=== PATIENT | male | born 1970 | race Caucasian/White ===

== ENCOUNTER → 2019-11-09 13:10 | Outpatient (CLI) | payer OTHER, SELFPAY ==
[2019-11-09 16:13] LABS: Absolute Lymphocyte Count 1.51 X10^3/uL (0.83-4.51); Absolute Neutrophil Count 3.3 X10^3/uL (2.0-7.7); Basophil# 0.03 X10^3/uL; Basophil% 0.5 % (0-1); Eosinophil# 0.15 X10^3/uL; Eosinophils% 2.6 % (0-5); Hematocrit 46.6 % (40-54); Hemoglobin 15.6 g/dL (13.0-16.5); Lymphocyte # 1.51 X10^3/ul (4.0); Lymphocyte % 26.1 % (19-41); Mean Corp Hgb Conc 33.5 g/dL (32-36); Mean Corpuscular Hgb 31.4 pg (27.0-32.0); Mean Corpuscular Volume 93.8 fL (80-94); Mean Platelet Vol. 10.2 fl (6.2-12.0); Monocyte# 0.69 X10^3/uL; Monocyte% 11.9 % (0-10); NRBC Flagged by Analyzer 0 % (0-5); Neutrophil # 3.31 X10^3/uL (2.7-7.7); Neutrophil % 57.3 % (47-70); Platelet Count 191 K/mm3 (150-450); RBC Distribution Width CV 12.5 % (11.6-14.6); Red Blood Count 4.97 M/mm3 (4.6-6.2); White Blood Count 5.8 K/mm3 (4.4-11.0)
[2019-11-09 17:27] LABS: AST(SGOT) 93 U/L (15-37); Alanine Aminotransfer ALT/SGPT 181 U/L (16-61); Albumin, Serum 3.8 g/dL (3.2-5.0); Alkaline Phosphatase 94 U/L (45-117); Globulin 3.3 g/dL (2.2-4.2); Protein, Total 7.1 g/dL (6.4-8.2)
== END ==
PROVIDERS: Family Provider Family Medicine; PCP Family Medicine; Referring Provider Internal Medicine Gastroenterology; Visit Provider Internal Medicine Gastroenterology
DX: K51.90 Ulcerative colitis, unspecified, without complications (principal)
CPT/HCPCS: 36415; 80076; 85025

== ENCOUNTER → 2019-12-16 09:58 | Outpatient (CLI) | payer BC, SELFPAY ==
[2019-12-16 13:18] LABS: AST(SGOT) 24 U/L (15-37); Alanine Aminotransfer ALT/SGPT 49 U/L (12-78); Alkaline Phosphatase 90 U/L (50-136); Bilirubin, Direct 0.14 mg/dL (0.00-0.30); CRP < 2.90 mg/L (0.0-3.0)
== END ==
PROVIDERS: PCP Family Medicine; Referring Provider Internal Medicine Gastroenterology; Visit Provider Internal Medicine Gastroenterology
DX: K51.90 Ulcerative colitis, unspecified, without complications (principal)
CPT/HCPCS: 36415; 80076; 86140

== ENCOUNTER → 2021-06-01 11:00 | Outpatient (CLI) | payer BC, SELFPAY ==
[2021-06-01 12:32] LABS: Absolute Lymphocyte Count 1.28 X10^3/uL (0.83-4.51); Absolute Neutrophil Count 4.6 X10^3/uL (2.0-7.7); Basophil# 0.04 X10^3/uL; Basophil% 0.6 % (0-1); Eosinophil# 0.17 X10^3/uL; Eosinophils% 2.5 % (0-5); Hemoglobin 14.9 g/dL (13.0-16.5); Lymphocyte # 1.28 X10^3/ul (0.83-4.51); Lymphocyte % 18.7 % (19-41); Mean Corp Hgb Conc 33.1 g/dL (32-36); Mean Corpuscular Volume 93.6 fL (80-94); Mean Platelet Vol. 10.1 fl (6.2-12.0); Monocyte# 0.69 X10^3/uL; Monocyte% 10.1 % (0-10); NRBC Flagged by Analyzer 0 % (0-5); Neutrophil % 67.2 % (47-70); Platelet Count 217 K/mm3 (150-450); RBC Distribution Width CV 12.6 % (11.6-14.6); RBC Distribution Width SD 43.6 fl (35.1-43.9); Red Blood Count 4.81 M/mm3 (4.6-6.2); White Blood Count 6.8 K/mm3 (4.4-11.0)
== END ==
PROVIDERS: PCP Family Medicine; Referring Provider Internal Medicine Gastroenterology; Visit Provider Internal Medicine Gastroenterology
DX: K51.90 Ulcerative colitis, unspecified, without complications (principal)
CPT/HCPCS: 36415; 85025

== ENCOUNTER → 2022-11-02 | Outpatient (CLI) | payer OTHER, SELFPAY ==
[2022-11-02 10:06] LABS: Erythrocyte Sedimentation Rate 4 mm/hr (0-20)
[2022-11-02 10:13] LABS: Vitamin B12 471 pg/mL (211-911); Vitamin D,25 Hydroxy 29.1 ng/mL
[2022-11-02 10:26] LABS: ALB/GLOB Ratio 1.2 RATIO (0.9-2.4); AST(SGOT) 18 U/L (15-37); Alanine Aminotransfer ALT/SGPT 24 U/L (16-61); Albumin, Serum 3.7 g/dL (3.2-5.0); Alkaline Phosphatase 95 U/L (45-117); Anion Gap 2 (5-15); BUN 10 mg/dL (7-18); BUN/Creat Ratio 10.1 RATIO (10-20); CRP < 2.90 mg/L (0.0-3.0); Calcium,Total 8.9 mg/dL (8.5-10.1); Chloride 108 mmol/L (98-107); Creatinine, Serum 0.99 mg/dL (0.70-1.30); EST Glomerular Filtration Rate 85 mL/min (>60); Est Glom Filt Rate - Afr Amer 102 mL/min (>60); Ferritin 38 ng/mL (26-388); Globulin 3.2 g/dL (2.2-4.2); Glucose 102 mg/dL (74-106); LDH 210 U/L (87-241); Potassium 4.4 mmol/L (3.5-5.1); Protein, Total 6.9 g/dL (6.4-8.2); Sodium Level 139 mmol/L (136-145)
[2022-11-07 05:07] LABS: Endomysial Antibody IgA Negative (Negative)
[2022-11-07 09:08] LABS: Albumin 3.7 g/dL (2.9-4.4); Alpha-1-Globulins 0.2 g/dL (0.0-0.4); Alpha-2-Globulins 0.6 g/dL (0.4-1.0); Angiotensin Convert Enzyme 83 U/L (14-82); Cytoplasmic Ab (C-ANCA) <1:20 titer (Neg:<1:20); Gamma Globulin 1.1 g/dL (0.4-1.8); Immunoglobulin A 119 mg/dL (90-386); Immunoglobulin G 936 mg/dL (603-1613); Immunoglobulin M 105 mg/dL (20-172); PROEL- TOTAL PROTEIN 6.5 g/dL (6.0-8.5)
[2022-11-07 11:03] LABS: Immunoglobulin A 122 mg/dL (90-386); t-Transglutaminase IgA <2 U/mL (0-3)
[2022-11-07 12:00] LABS: Anti-Smooth Muscle ABS 6 Units (0-19); Immunoglobulin E 9 IU/mL (6-495); Perinuclear Ab (P-ANCA) <1:20 titer (Neg:<1:20)
[2022-11-09 17:06] LABS: Anti-Mitochondrial AB <20.0 Units (0.0-20.0); Vitamin D 1,25-Dihydroxy 45.2 pg/mL (24.8-81.5)
== END | disposition home or self-care (01) ==
LOC: LAB 09:14
PROVIDERS: PCP Family Medicine; Referring Provider Internal Medicine Gastroenterology; Visit Provider Internal Medicine Gastroenterology
DX: R10.9 Unspecified abdominal pain (principal); K51.90 Ulcerative colitis, unspecified, without complications
CPT/HCPCS: 36415; 80053; 82164; 82306; 82607; 82652; 82728; 82746; 82784; 82785; 83516; 83615; 84165; 85652; 86140; 86255; 86256; 86334

== ENCOUNTER → 2022-11-15 | Outpatient (CLI) | payer OTHER, SELFPAY ==
--- NOTE | 2022-11-15 08:01 | US_ITS ---
STUDY: ABDOMINAL ULTRASOUND - ELASTOGRAPHY REASON FOR VISIT: Male, 52 years old. LOPEZ TECHNIQUE: Liver stiffness measurements were obtained on a Jumptap RS 85 ultrasound machine using a CA 1-7 probe following the SRU guidelines. 3 measurements were obtained using a 2-D-SWE method. TheIQR/M was 17 % suggesting a quality data set. TECHNICAL QUALITY: Adequate. COMPARISON: Comparison is made with prior study done earlier in the day. FINDINGS: Liver: Fatty infiltration of the liver. Median liver stiffness measured 7.3 kPa. US/Elastography Parenchyma/Organ IMPRESSION: Liver stiffness measures 7.3 kPa compatible with F2-F3 (Mild to moderate liver fibrosis) Metavir score. Electronically Signed: Prieto Gunderson MD at 14:45 EST ,
--- NOTE | 2022-11-15 08:16 | US_ITS ---
HISTORY: ulcerative colitis. TECHNIQUE: Akhtar scale and color doppler imaging was performed of the right upper quadrant. 108 images. COMPARISON: None. FINDINGS: LIVER: 15.4 cm in length. Mildly echogenic without focal lesion demonstrated. No intrahepatic ductal dilatation. No significant perihepatic ascites. COMMON BILE DUCT: 4 mm in diameter. GALLBLADDER: No gallstones or sludge. 5 mm polyp. 3 mm wall thickness, within normal limits. No pericholecystic fluid. Sonographic Benitez sign negative. PANCREAS: Partially obscured due to overlying bowel gas. RIGHT KIDNEY: 12.3 cm in length with a cortical thickness of 2.5 cm. No hydronephrosis or gross renal mass demonstrated. US/Liver IMPRESSION: Hepatic steatosis. 5 mm gallbladder polyp. Recommend follow-up in 12 months. Electronically Signed: Maya Hunter MD at 10:22 EST ,
[2022-11-19 16:07] LABS: Pancreatic Elastase, Fecal > 500 (>200)
[2022-11-22 21:39] LABS: Calprotectin, Stool 50 ug/g (0-120); Fats, Neutral Normal (.); Fats, Total Normal (.)
== END | disposition home or self-care (01) ==
PROVIDERS: PCP Family Medicine; Visit Provider Internal Medicine Gastroenterology
DX: K75.81 Nonalcoholic steatohepatitis (NASH) (principal); K51.90 Ulcerative colitis, unspecified, without complications; R19.7 Diarrhea, unspecified
CPT/HCPCS: 76705; 76981; 82653; 82705; 83630; 83993; 87177; 87209; 87329; 87493; 87506

== ENCOUNTER → 2022-12-03 | Outpatient (CLI) | payer OTHER, SELFPAY ==
[2022-12-06 17:29] LABS: Anti-Parietal Cell AB, QN 2.1 Units (0.0-20.0); Carbohydrate Ag 19-9 2261 19 U/mL (0-35); Carcinoembryonic Antigen 1.4 ng/mL (0.0-4.7)
== END | disposition home or self-care (01) ==
LOC: LAB 15:10
PROVIDERS: PCP Family Medicine; Referring Provider Internal Medicine Gastroenterology; Visit Provider Internal Medicine Gastroenterology
DX: K82.4 Cholesterolosis of gallbladder (principal)
CPT/HCPCS: 36415; 82378; 83516; 86301; 86340

== ENCOUNTER → 2023-03-02 | Outpatient (CLI) | payer OTHER, SELFPAY ==
[2023-03-05 18:07] LABS: QNTFERON TB Mitogen Value > 10.00 IU/mL (.); QNTFERON TB Nil Value 0 IU/mL (.); QNTFERON TB1+ Ag Value 0 IU/mL (.); QNTFERON TB2+ Ag Value 0.01 IU/mL (.); QNTIFERON TB Positive Criteria Negative (Negative)
== END | disposition home or self-care (01) ==
LOC: LAB 11:17
PROVIDERS: PCP Family Medicine; Visit Provider Internal Medicine Gastroenterology
DX: K51.90 Ulcerative colitis, unspecified, without complications (principal)
CPT/HCPCS: 36415; 86480

== ENCOUNTER → 2023-12-05 | Outpatient (CLI) | payer OTHER, SELFPAY ==
[2023-12-05 09:28] LABS: Absolute Lymphocyte Count 1.87 X10^3/uL (0.83-4.51); Absolute Neutrophil Count 3.9 X10^3/uL (2.0-7.7); Basophil# 0.05 X10^3/uL; Basophil% 0.7 % (0-1); Eosinophil# 0.19 X10^3/uL; Eosinophils% 2.8 % (0-5); Hematocrit 44.9 % (40-54); Lymphocyte # 1.87 X10^3/ul (0.83-4.51); Mean Corp Hgb Conc 33.4 g/dL (32-36); Mean Corpuscular Hgb 30.7 pg (27.0-32.0); Mean Platelet Vol. 10.1 fl (6.2-12.0); Monocyte# 0.59 X10^3/uL; Monocyte% 8.8 % (0-10); NRBC Flagged by Analyzer 0 % (0-5); Neutrophil # 3.91 X10^3/uL (2.7-7.7); Neutrophil % 58.5 % (47-70); Platelet Count 191 K/mm3 (150-450); RBC Distribution Width CV 12.2 % (11.6-14.6); RBC Distribution Width SD 41.3 fl (35.1-43.9); Red Blood Count 4.88 M/mm3 (4.6-6.2); White Blood Count 6.7 K/mm3 (4.4-11.0)
[2023-12-05 09:38] LABS: Erythrocyte Sedimentation Rate < 1 mm/hr (0-20)
[2023-12-05 10:07] LABS: ALB/GLOB Ratio 1.3 RATIO (0.9-2.4); AST(SGOT) 24 U/L (15-37); Alanine Aminotransfer ALT/SGPT 42 U/L (16-61); Albumin, Serum 3.9 g/dL (3.2-5.0); Alkaline Phosphatase 79 U/L (45-117); Anion Gap 1 (5-15); BUN 13 mg/dL (7-18); BUN/Creat Ratio 11.7 RATIO (10-20); CRP < 2.90 mg/L (0.0-3.0); Chloride 109 mmol/L (98-107); Creatinine, Serum 1.11 mg/dL (0.70-1.30); EST Glomerular Filtration Rate 74 mL/min (>60); Est Glom Filt Rate - Afr Amer 89 mL/min (>60); Globulin 3.1 g/dL (2.2-4.2); Glucose 107 mg/dL (74-106); LDH 257 U/L (87-241); Potassium 4.3 mmol/L (3.5-5.1); Sodium Level 137 mmol/L (136-145)
[2023-12-09 13:08] LABS: QNTFERON TB Mitogen Value > 10.00 IU/mL (.); QNTFERON TB Nil Value 0 IU/mL (.); QNTFERON TB1+ Ag Value 0 IU/mL (.); QNTFERON TB2+ Ag Value 0 IU/mL (.); QNTIFERON TB Positive Criteria Negative (Negative)
== END | disposition home or self-care (01) ==
PROVIDERS: PCP Family Medicine; Referring Provider Internal Medicine Gastroenterology; Visit Provider Internal Medicine Gastroenterology
DX: K51.90 Ulcerative colitis, unspecified, without complications (principal)
CPT/HCPCS: 36415; 80053; 83615; 85025; 85652; 86140; 86480

== ENCOUNTER → 2023-12-20 | Outpatient (CLI) | payer OTHER, SELFPAY ==
--- NOTE | 2023-12-20 07:22 | US_ITS ---
EXAM: US ABDOMEN LIMITED, RIGHT UPPER QUADRANT CLINICAL INDICATION: gallbladder polyp evaluation TECHNIQUE: Real-time ultrasound of the right upper quadrant with image documentation. COMPARISON: 11/15/2022 FINDINGS: LIVER: Liver is echogenic in texture measuring about 16 cm in length. No intrahepatic biliary ductal dilation. The portal vein is patent with normal hepatopedal flow. GALLBLADDER: 6 mm gallbladder polyp unchanged since prior exam. No shadowing gallstone. No gallbladder wall thickening is demonstrated. No pericholecystic fluid. Negative sonographic Benitez''s sign. COMMON BILE DUCT: The proximal common bile duct is within normal limits for the patient''s age. Normal common bile duct measuring 4 mm. PANCREAS: Unremarkable as visualized. No focal abnormality is demonstrated in the pancreas. No pancreatic ductal dilatation. RIGHT KIDNEY: The right kidney measures 12 x 6.7 x 7 cm. The renal cortex measures 2 cm. Focal prominence of the midpole of the right kidney measuring about 2.9 cm could represent dromedary hump. Focal mass cannot be excluded. Correlation with CT scan of the kidneys is recommended. No shadowing calculus. US/Abdomen Limited IMPRESSION: 1. Focal prominence of the midpole of the right kidney measuring about 2.9 cm could represent dromedary hump. Focal mass cannot be excluded. Correlation with CT scan of the kidneys with and without contrast is recommended. 2. 6 mm gallbladder polyp unchanged since prior exam. 3. Fatty infiltration of the liver. Electronically Signed: Jamie Krishna MD at 9:17 EST ,
--- OUTSIDE RECORDS SUMMARY | 2023-12-20 07:31 | XMS RPT_ITS | CCD ---
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 Name Role Phone Bouchra Alvarado Unavailable Cathy Ibrahim Unavailable Bouchra Alvarado Unavailable Sanya Delatorre MD Primary Care Provider Sanya Delatorre MD Primary Care Provider SANYA DELATORRE Primary Care Unavailable SANYA DELATORRE Primary Care Unavailable Allergies Allergy Classification Reported Allergen(s) Allergy Type Date of Onset Reaction(s) Facility (3 sources) Ibuprofen; Translations: [IBUPROFEN] Drug Allergy 09-16-2011 Intolerance [facility] Work Phone: Medications Current Medications Medication Drug Class(es) Dates Sig (Normalized) Sig (Original) amoxicillin 875 mg / clavulanate 125 mg oral tablet (1 source) Penicillin-class Antibacterial Start: 02-05-2023 End: 02-12-2023 take 1 tablet by mouth twice daily amoxicillin-clav ulanic acid (AUGMENTIN) 875-125 mg per tablet Take 1 tablet by mouth twice daily for 7 days. 14 tablet 0 02/05/2023 02/12/2023 Active Completed/Discontinued Medications Medication Drug Class(es) Dates Sig (Normalized) Sig (Original) azaTHIOprine 50 mg oral tablet (8 sources) Purine Antimetabolite Start: 05-08-2017 AZATHIOPRINE 50 MG TABS AZATHIOPRINE [id number] Bouchra Alvarado Problems Active Problems Problem Classification Problem Date Documented Da te Episodic/Chronic Joint disorders and dislocations; trauma-related (6 sources) Other meniscus derangements, unspecified lateral meniscus, unspecified knee; Translations: [Other meniscus derangements, unspecified lateral meniscus, unspecified knee] Onset: 05-08-2017 05-08-2017 Chronic Other screening for suspected conditions (not mental disorders or infectious disease) (1 source) No current problems or disability 05-08-2017 Other upper respiratory disease (1 source) Chronic rhinitis; Translations: [Unspecified sinusitis (chronic)] Chronic Other upper respiratory infections (2 sources) Sore throat symptom; Translations: [Acute pharyngitis, unspecified] Episodic Otitis media and related conditions (1 source) Acute left otitis media; Translations: [Otitis media, unspecified, left ear] Episodic Past or Other Problems Problem Classification Problem Date Documented Da te Episodic/Chronic Gastrointestinal hemorrhage (2 sources) Gastrointestinal hemorrhage; Translations: [Gastrointestinal hemorrhage, unspecified] Onset: 7 04-08-2007 Episodic Hemorrhoids (2 sources) External hemorrhoids; Translations: [Residual hemorrhoidal skin tags] Onset: 7 04-08-2007 Episodic Other connective tissue disease (6 sources) Synovial cyst of popliteal space [[place]], left knee; Translations: [Synovial cyst of popliteal space [[place]], left knee] Onset: 7 05-08-2017 Episodic Other gastrointestinal disorders (2 sources) Diarrhea; Translations: [Diarrhea, unspecified] Onset: 7 04-08-2007 Episodic Other non-traumatic joint disorders (6 sources) Knee pain; Translations: [Pain in left knee] Onset: 7 05-08-2017 Episodic Results Test Name Value Interpretation Reference Range Facil ity Vital Signs Date Time Vital Sign Value Performing Clinician Facility 02-05-2023 19:00-0400 Body temperature 97.81 [degF] Cathy Fontanez APRN.CNP Work Phone: [facility] 02-05-2023 19:00-0400 Body weight 119.3 kg Cathy Fontanez APRN.CNP Work Phone: [facility] 02-05-2023 19:00-0400 Diastolic blood pressure 80 mm[Hg] Cathy Fontanez APRN.CNP Work Phone: [facility] 02-05-2023 19:00-0400 Heart rate 94 /min Cathy Fontanez HOD CARRIER.CLINICAL PROJECT COORDINATOR Work Phone: [facility] 02-05-2023 19:00-0400 Respiratory rate 18 /min Cathy Fontanez HOD CARRIER.CLINICAL PROJECT COORDINATOR Work Phone: [facility] 02-05-2023 19:00-0400 SaO2% (BldA) [Mass fraction] 96 % Cathy Fontaenz HOD CARRIER.CLINICAL PROJECT COORDINATOR Work Phone: [facility] 02-05-2023 19:00-0400 Systolic blood pressure 124 mm[Hg] Cathy Fontanez HOD CARRIER.CLINICAL PROJECT COORDINATOR Work Phone: [facility] 05-01-2022 07:12-0400 Body temperature 96.91 [degF] Clarita Patel HOD CARRIER.CLINICAL PROJECT COORDINATOR Work Phone: [facility] 05-01-2022 07:12-0400 Body weight 112.04 kg Clarita Patel HOD CARRIER.CLINICAL PROJECT COORDINATOR Work Phone: [facility] 05-01-2022 07:12-0400 Diastolic blood pressure 82 mm[Hg] Clarita Patel HOD CARRIER.CLINICAL PROJECT COORDINATOR Work Phone: [facility] 05-01-2022 07:12-0400 Heart rate 84 /min Clarita Patel HOD CARRIER.CLINICAL PROJECT COORDINATOR Work Phone: [facility] 05-01-2022 07:12-0400 Respiratory rate 16 /min Clarita Patel HOD CARRIER.CLINICAL PROJECT COORDINATOR Work Phone: [facility] 05-01-2022 07:12-0400 SaO2% (BldA) [Mass fraction] 96 % Clarita Patel HOD CARRIER.CLINICAL PROJECT COORDINATOR Work Phone: [facility] 05-01-2022 07:12-0400 Systolic blood pressure 124 mm[Hg] Clarita Patel HOD CARRIER.CLINICAL PROJECT COORDINATOR Work Phone: [facility] 05-08-2017 08:47-0400 BMI (Body Mass Index) 32.07 kg/m2 [facility] Work Phone: 05-08-2017 08:47-0400 Height 180.34 cm Bouchra Alvarado [facility] Work Phone: 05-08-2017 [id number] Weight 104.33 kg Bouchra Alvarado [facility] Work Phone: Encounters Encounter Date Encounter Type Care Provider Facility Start: 02-05-2023 End: 02-05-2023 ambulatory SANYA MATTAELSEN Facility:[facility] Start: 02-05-2023 End: 02-05-2023 Patient encounter procedure Cathy Fontanez HOD CARRIER.CLINICAL PROJECT COORDINATOR Work Phone: [facility] Procedures Date Procedure Procedure Detail Performing Clinician Start: 05-01-2022 STREP A MOLECULAR (POC) Clarita Patel HOD CARRIER.CLINICAL PROJECT COORDINATOR Work Phone: Start: 05-08-2017 End: 05-08-2017 Drain/inject, joint/bursa Bouchra zuluaga Work Phone: Plan of Treatment Date Care Activity Detail Author Start: 11-11-2022 DEPRESSION ASSESSMENT DEPRESSION ASSESSMENT [facility] Start: 07-12-2022 Influenza vaccination [facility] Start: 05-31-2017 End: 05-31-2017 Appointment Appointment [facility] Work Phone: Start: 05-08-2017 End: 05-08-2017 Appointment Appointment [facility] Work Phone: Start: 05-08-2017 End: 05-08-2017 *BFRW - Body Fluid RBC, WBC & DIFF *BFRW - Body Fluid RBC, WBC & DIFF [facility] Work Phone: Start: 05-08-2017 End: 05-08-2017 Bacteria identified in Body fluid by Culture *CUBF- Culture, Body Fluid [facility] Work Phone: Start: 05-08-2017 End: 05-08-2017 Crystals [type] in Body fluid by Light microscopy *BLANQUITA - Crystals, Body Fluid [facility] Work Phone: Start: 05-08-2017 End: 05-08-2017 Glucose *GLUBF - Glucose, Body Fluid [facility] Work Phone: Start: 05-08-2017 End: 05-08-2017 Glucose mass conc (Body fld) *GLUBF - Glucose, Body Fluid [facility] Work Phone: Start: 05-08-2017 End: 05-08-2017 Mri jnt of lwr extre w/o dye MRI Joint Lower Extremity [facility] Work Phone: Start: 05-08-2017 End: 05-08-2017 Protein in fluid *PROBF - Protein, Body Fluid [facility] Work Phone: Start: 05-08-2017 End: 05-08-2017 X-ray exam, knee, 4 or more X-Ray, Knee [facility] Work Phone: Start: 2016 COLOGUARD (FIT-DNA) COLOGUARD (FIT-DNA) [facility] Start: 2016 Colonoscopy COLONOSCOPY [facility] Start: 2016 COLORECTAL CANCER SCREENING COLORECTAL CANCER SCREENING [facility] Start: [address] COLONOGRAPHY [facility] Start: 2016 DIABETES SCREEN DIABETES SCREEN [facility] Start: 2016 FECAL OCCULT BLOOD FECAL OCCULT BLOOD [facility] Start: 2016 SIGMOIDOSCOPY SIGMOIDOSCOPY [facility] Start: 2006 LIPID SCREEN LIPID SCREEN [facility] Start: 1990 SHINGRIX VACCINE (1 of 2) SHINGRIX VACCINE (1 of 2) [facility] Start: 1990 Urine microalbumin profile DTAP,TDAP,TD (1 - Tdap) [facility] Start: 1989 HEPATITIS C SCREENING HEPATITIS C SCREENING [facility] Start: 1989 HIV SCREENING HIV SCREENING [facility] Start: 1983 Adult depression screening assessment DEPRESSION SCREENING [facility] Start: 1977 PNEUMOCOCCAL (1 - PCV) PNEUMOCOCCAL (1 - PCV) [facility] Start: 1976 COVID-19 VACCINE (#1) COVID-19 VACCINE (#1) [facility] Start: 1971 COVID-19 VACCINE (#1) COVID-19 VACCINE (#1) [facility] Start: 1971 HEPATITIS B (1 of 3 - 3-dose series) HEPATITIS B (1 of 3 - 3-dose series) [facility] Payers Date Payer Category Payer Unknown [employer] PPO [id number] 2021-Present [phone] [address] [place] [address] PPO [id number] 2021 Unknown [id number] Social History Date Type Detail Facility Start: 02-05-2023 Tobacco smoking stat [facility] Ex-smoker [facility] Work Phone: End: 11-11-2002 History of tobacco use Current smoker [facility] Work Phone: End: 11-11-2002 History of tobacco use Cigarette Smoker [facility] Work Phone: Start: 05-01-2022 End: 02-05-2023 Alcohol intake Current drinker of alcohol (finding) [facility] Start: 04-29-2018 History SDOH Alcohol Comment 2 beers once a month [facility] Start: 1971 Sex Assigned At Not on file [facility] Start: 04-21-2022 End: 05-01-2022 Exposure to SARS-CoV-2 (event) Not sure [facility] Work Phone: Start: 02-05-2023 Cigarettes smoked current (pack per day) - Reported 0.5 [facility] Start: 02-05-2023 Tobacco use and exposure Smokeless tobacco non-user [facility] Work Phone: Progress note 02-05-2023 Note Date & Type Note Facility 02-05-2023 Note HNO ID: [id number] Author: Cathy Fontanez APRN.CLINICAL PROJECT COORDINATOR Service: ? Author Type: Nurse Practitioner Type: Progress Notes Filed: 02/05/2023 7:11 PM Note Text: This note was created using NoteWriter. Subjective Theresa Sterling is a 52 year old male. 52 year old male with PMH ulcerative colitis presents with Acute onset of symptoms was almost 2 weeks ago +cough + congestion +sore throat +left ear pain Left sided lymph nodes with tenderness and pain Denies SOB or dyspnea. Denies CP Denies abdominal pain. Denies N/V/D Denies skin rash or lesions. 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 The history is provided by the patient. No sign language interpreter was used. Sinus Problem This is a new problem. The current episode started 1 to 4 weeks ago. The problem occurs constantly. The problem has been gradually worsening. Associated symptoms include congestion, coughing, headaches, a sore throat and swollen glands. Pertinent negatives include no abdominal pain, anorexia, arthralgias, change in bowel habit, chest pain, chills, diaphoresis, fatigue, fever, joint swelling, myalgias, nausea, neck pain, numbness, rash, urinary symptoms, vertigo, visual change, vomiting or weakness. Nothing aggravates the symptoms. He has tried nothing for the symptoms. The treatment provided no relief. PAST MEDICAL HISTORY Diagnosis Date Abdominal pain, right lower quadrant Diarrhea External hemorrhoids without mention of complication Hemorrhage of gastrointestinal tract, unspecified Ulcerative colitis (HCC) PAST SURGICAL HISTORY Procedure Laterality Date APPENDECTOMY COLONOSCOPY FLX DX W/COLLJ SPEC WHEN PFRMD 01/26/05 Colonoscopy SIGMOIDOSCOPY FLX W/BIOPSY SINGLE/MULTIPLE 04-08-07 TONSILLECTOMY PRIMARY/SECONDARY Tonsillectomy ALLERGIES Ibuprofen MEDICATIONS azaTHIOprine (IMURAN) 50 mg tablet Take 50 mg by mouth once daily. mesalamine (ROWASA) 4 gram/60 mL enema 4 g by RECTAL route at bedtime as needed. amoxicillin-clavulanic acid (AUGMENTIN) 875-125 mg per tablet Take 1 tablet by mouth twice daily for 7 days. OTC PRODUCT Culturale herbal supplement (Patient not taking: Reported on 05/01/2022) FAMILY HISTORY Problem Relation Age of Onset Cancer Paternal Grandmother Colon Hypertension Mother No Known Problems Father Social History Tobacco Use Smoking status: Former Packs/day: 0.50 Years: 10.00 Pack years: 5.00 Types: Cigarettes Quit date: 11/11/2002 Years since quittin.2 Smokeless tobacco: Never Substance Use Topics Alcohol use: Yes Comment: 2 beers once a month Drug use: No Review of Systems Constitutional: Negative for chills, diaphoresis, fatigue and fever. HENT: Positive for congestion, ear pain, postnasal drip, rhinorrhea, sinus pain and sore throat. Eyes: Negative for pain, discharge, redness and itching. Respiratory: Positive for cough. Negative for apnea, choking and chest tightness. Cardiovascular: Negative for chest pain, palpitations and leg swelling. Gastrointestinal: Negative for abdominal pain, anorexia, change in bowel habit, nausea and vomiting. Musculoskeletal: Negative for arthralgias, joint swelling, myalgias and neck pain. Skin: Negative for rash. Allergic/Immunologic: Positive for immunocompromised state. Negative for environmental allergies and food allergies. Neurological: Positive for headaches. Negative for vertigo, weakness and numbness. Hematological: Negative for adenopathy. Does not bruise/bleed easily. Psychiatric/Behavioral: Negative for agitation and behavioral problems. Objective BP 124/80 Pulse 94 Temp 36.6 ?C (97.8 ?F) Resp 18 Wt 119.3 kg (263 lb) SpO2 96% Physical Exam Vitals and nursing note reviewed. Constitutional: General: He is not in acute distress. Appearance: Normal appearance. He is not ill-appearing, toxic-appearing or diaphoretic. HENT: Head: Normocephalic and atraumatic. Comments: +maxillary sinus TTP Right Ear: External ear normal. Left Ear: External ear normal. Ears: Comments: Left TM erythematous and bulging Nose: Nose normal. No congestion or rhinorrhea. Mouth/Throat: Mouth: Mucous membranes are moist. Pharynx: Oropharynx is clear. No oropharyngeal exudate or posterior oropharyngeal erythema. Eyes: General: Right eye: No discharge. Left eye: No discharge. Extraocular Movements: Extraocular movements intact. Conjunctiva/sclera: Conjunctivae normal. Pupils: Pupils are equal, round, and reactive to light. Cardiovascular: Rate and Rhythm: Normal rate and regular rhythm. Pulses: Normal pulses. Heart sounds: Normal heart sounds. No murmur heard. No friction rub. No gallop. Pulmonary: Effort: Pulmonary effort is normal. No respiratory distress. Breath sounds: Normal breath sounds. No stridor. No wheezing, rhonchi or rales. Chest: Chest wall: No tenderness. Abdominal: General: Abdomen is flat. There is (more content not included)... [facility] History of Present illness Narrative 02-05-2023 Cathy Fontanez APRN.CLINICAL PROJECT COORDINATOR - 02/05/2023 7:04 PM EDT Note Date & Type Note Facility 02-05-2023 History of Presen t illness Narrative This note was created using Sticher. Subjective Theresa Sterling is a 52 year old male. 52 year old male with PMH ulcerative colitis presents with Acute onset of symptoms was almost 2 weeks ago +cough + congestion +sore throat +left ear pain Left sided lymph nodes with tenderness and pain Denies SOB or dyspnea. Denies CP Denies abdominal pain. Denies N/V/D Denies skin rash or lesions. 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 The history is provided by the patient. No sign language interpreter was used. Sinus Problem This is a new problem. The current episode started 1 to 4 weeks ago. The problem occurs constantly. The problem has been gradually worsening. Associated symptoms include congestion, coughing, headaches, a sore throat and swollen glands. Pertinent negatives include no abdominal pain, anorexia, arthralgias, change in bowel habit, chest pain, chills, diaphoresis, fatigue, fever, joint swelling, myalgias, nausea, neck pain, numbness, rash, urinary symptoms, vertigo, visual change, vomiting or weakness. Nothing aggravates the symptoms. He has tried nothing for the symptoms. The treatment provided no relief. PAST MEDICAL HISTORY Diagnosis Date Abdominal pain, right lower quadrant Diarrhea External hemorrhoids without mention of complication Hemorrhage of gastrointestinal tract, unspecified Ulcerative colitis (HCC) PAST SURGICAL HISTORY Procedure Laterality Date APPENDECTOMY COLONOSCOPY FLX DX W/COLLJ SPEC WHEN PFRMD 01/26/05 Colonoscopy SIGMOIDOSCOPY FLX W/BIOPSY SINGLE/MULTIPLE 04-08-07 TONSILLECTOMY PRIMARY/SECONDARY <AGE 13 Tonsillectomy ALLERGIES Ibuprofen MEDICATIONS azaTHIOprine (IMURAN) 50 mg tablet Take 50 mg by mouth once daily. mesalamine (ROWASA) 4 gram/60 mL enema 4 g by RECTAL route at bedtime as needed. amoxicillin-clavulanic acid (AUGMENTIN) 875-125 mg per tablet Take 1 tablet by mouth twice daily for 7 days. OTC PRODUCT Culturale herbal supplement (Patient not taking: Reported on 05/01/2022) FAMILY HISTORY Problem Relation Age of Onset Cancer Paternal Grandmother Colon Hypertension Mother No Known Problems Father Social History Tobacco Use Smoking status: Former Packs/day: 0.50 Years: 10.00 Pack years: 5.00 Types: Cigarettes Quit date: 11/11/2002 Years since quittin.2 Smokeless tobacco: Never Substance Use Topics Alcohol use: Yes Comment: 2 beers once a month Drug use: No Review of Systems Constitutional: Negative for chills, diaphoresis, fatigue and fever. HENT: Positive for congestion, ear pain, postnasal drip, rhinorrhea, sinus pain and sore throat. Eyes: Negative for pain, discharge, redness and itching. Respiratory: Positive for cough. Negative for apnea, choking and chest tightness. Cardiovascular: Negative for chest pain, palpitations and leg swelling. Gastrointestinal: Negative for abdominal pain, anorexia, change in bowel habit, nausea and vomiting. Musculoskeletal: Negative for arthralgias, joint swelling, myalgias and neck pain. Skin: Negative for rash. Allergic/Immunologic: Positive for immunocompromised state. Negative for environmental allergies and food allergies. Neurological: Positive for headaches. Negative for vertigo, weakness and numbness. Hematological: Negative for adenopathy. Does not bruise/bleed easily. Psychiatric/Behavioral: Negative for agitation and behavioral problems. Objective BP 124/80 Pulse 94 Temp 36.6 C (97.8 F) Resp 18 Wt 119.3 kg (263 lb) SpO2 96% Physical Exam Vitals and nursing note reviewed. Constitutional: General: He is not in acute distress. Appearance: Normal appearance. He is not ill-appearing, toxic-appearing or diaphoretic. HENT: Head: Normocephalic and atraumatic. Comments: +maxillary sinus TTP Right Ear: External ear normal. Left Ear: External ear normal. Ears: Comments: Left TM erythematous and bulging Nose: Nose normal. No congestion or rhinorrhea. Mouth/Throat: Mouth: Mucous membranes are moist. Pharynx: Oropharynx is clear. No oropharyngeal exudate or posterior oropharyngeal erythema. Eyes: General: Right eye: No discharge. Left eye: No discharge. Extraocular Movements: Extraocular movements intact. Conjunctiva/sclera: Conjunctivae normal. Pupils: Pupils are equal, round, and reactive to light. Cardiovascular: Rate and Rhythm: Normal rate and regular rhythm. Pulses: Normal pulses. Heart sounds: Normal heart sounds. No murmur heard. No friction rub. No gallop. Pulmonary: Effort: Pulmonary effort is normal. No respiratory distress. Breath sounds: Normal breath sounds. No stridor. No wheezing, rhonchi or rales. Chest: Chest wall: No tenderness. Abdominal: General: Abdomen is flat. There is no distension. Palpations: Abdomen is soft. There is no mass. Tenderness: There is no abdominal tenderness. There is no guarding or rebound. Hernia: No hernia is present. Musculoskeletal: General: No swelling, tenderness, deformity or signs of injury. Normal range of motion. Cervical back: Normal range of motion and neck supple. No rigidity or tenderness. Right lower leg: No edema. Left lower leg: No edema. Lymphadenopathy: Cervical: Cervical adenopathy (left anterior) present. Skin: General: Skin is warm and dry. Capillary Refill: Capillary refill takes less than 2 seconds. Coloration: Skin is not jaundiced or pale. Findings: No bruising, lesion or rash. Neurological: General: No focal deficit present. Mental Status: He is alert and oriented to person, place, and time. Cranial Nerves: No cranial nerve deficit. Sensory: No sensory deficit. Motor: No weakness. Coordination: Coordination normal. Gait: Gait normal. Deep Tendon Reflexes: Reflexes normal. Psychiatric: Mood and Affect: Mood normal. Behavior: Behavior normal. Thought Content: Thought content normal. Assessment and Plan ASSESSMENT/PLAN: 1. Acute otitis media, left - ICD9: 382.9, ICD10: H66.92 (primary diagnosis) - Will begin treatment with as per antibiotic as written, see orders - The patient should also be given OTC cough and cold meds as needed, warm salt water gargles, throat lozenges and/or OTC throat spray as needed, and nasal saline gtts and suction prn for the first 5-7 days of treatment. - Supportive care with plenty of fluids, rest, and analgesia prn. - Follow up in 3-5 days if symptoms persist or worsen. 2. Rhinosinusitis - ICD9: 473.9, ICD10: J31.0, J32.9 - Will begin treatment with as per antibiotic as written, see orders - The patient should also be given OTC cough and cold meds as needed, warm salt water gargles, throat lozenges and/or OTC throat spray as needed, and nasal saline gtts and suction prn for the first 5-7 days of treatment. - Supportive care with plenty of fluids, rest, and analgesia prn. - Follow up in 3-5 days if symptoms persist or worsen. 3. URI, acute - ICD9: 465.9, ICD10: J06.9 - Symptomatic treatment with prn analgesia - Supportive care with fluids and rest Cathy Fontanez APRN.CLINICAL PROJECT COORDINATOR documented in this encounter [facility] Progress note 05-01-2022 Note Date & Type Note Facility 05-01-2022 Note HNO ID: [id number] Author: Clarita Patel APRN.CLINICAL PROJECT COORDINATOR Service: ? Author Type: Nurse Practitioner Type: Progress Notes Filed: 05/01/2022 7:51 AM Note Text: CC: Patient presents with: Sore Throat: x 1 day HPI: Theresa Sterling is a 51 year old male who presents to the office with complaint of sore throat for the past day. Symptoms are worsening Associated symptoms includes sore throat. Denies headache, body aches, fever, nausea, vomiting and diarrhea. Treatments tried include nothing so far. with no relief of symptoms. Sick contacts: unknown. History of asthma, frequent episodes of bronchitis, chronic bronchitis, bronchiectasis or COPD: No Smoker: No Seasonal/environmental allergies: No The ROS is otherwise negative. The patient's pmh, medications, allergies, and past visits are reviewed. PHYSICAL EXAM: BP 124/82 Pulse 84 Temp 36.1 ?C (96.9 ?F) Resp 16 Wt 112 kg (247 lb) SpO2 96% General appearance: alert, cooperative, pleasant, in no acute distress Head: Normocephalic Eyes: EOM's intact, conjunctiva pink and moist, no icterus, sclera white, non-injected Oropharynx:moderate erythema, without exudates present Heart: Negative. RRR without obvious murmur, gallop, or rubs. No ectopy. Lungs: clear to auscultation, without rales or wheeze, good air exchange PAST MEDICAL HISTORY Diagnosis Date - Abdominal pain, right lower quadrant - Diarrhea - External hemorrhoids without mention of complication - Hemorrhage of gastrointestinal tract, unspecified - Ulcerative colitis (HCC) PAST SURGICAL HISTORY Procedure Laterality Date - APPENDECTOMY - COLONOSCOPY FLX DX W/COLLJ SPEC WHEN PFRMD 01/26/05 Colonoscopy - SIGMOIDOSCOPY FLX W/BIOPSY SINGLE/MULTIPLE 04-08-07 - TONSILLECTOMY PRIMARY/SECONDARY Tonsillectomy ALLERGIES Ibuprofen MEDICATIONS azaTHIOprine (IMURAN) 50 mg tablet Take 50 mg by mouth once daily. mesalamine (ROWASA) 4 gram/60 mL enema 4 g by RECTAL route at bedtime as needed. OTC PRODUCT Culturale herbal supplement FAMILY HISTORY Problem Relation Age of Onset - Cancer Paternal Grandmother Colon - Hypertension Mother - No Known Problems Father Social History Tobacco Use - Smoking status: Former Smoker Packs/day: 0.50 Years: 10.00 Pack years: 5.00 Types: Cigarettes Quit date: 11/11/2002 Years since quittin.4 - Smokeless tobacco: Never Used Substance Use Topics - Alcohol use: Yes Comment: 2 beers once a month - Drug use: No ASSESSMENT/PLAN: 1. Sore throat - ICD9: 462, ICD10: J02.9 - STREP A MOLECULAR (POC) - negative Does nto want a viral swab at this time. Will monitor symptoms. Potential red flag symptoms discussed with the patient. Reviewed appropriate action plan to take if red flag symptoms occur. Patient agreeable to treatment plan. Clarita Patel APRN.ALAYNA [facility] History of Present illness Narrative 05-01-2022 Clarita Patel APRN.ALAYNA - 05/01/2022 7:29 AM EDT Note Date & Type Note Facility 05-01-2022 History of Presen t illness Narrative CC: Patient presents with: Sore Throat: x 1 day HPI: Theresa Sterling is a 51 year old male who presents to the office with complaint of sore throat for the past day. Symptoms are worsening Associated symptoms includes sore throat. Denies headache, body aches, fever, nausea, vomiting and diarrhea. Treatments tried include nothing so far. with no relief of symptoms. Sick contacts: unknown. History of asthma, frequent episodes of bronchitis, chronic bronchitis, bronchiectasis or COPD: No Smoker: No Seasonal/environmental allergies: No The ROS is otherwise negative. The patient's pmh, medications, allergies, and past visits are reviewed. PHYSICAL EXAM: BP 124/82 Pulse 84 Temp 36.1 C (96.9 F) Resp 16 Wt 112 kg (247 lb) SpO2 96% General appearance: alert, cooperative, pleasant, in no acute distress Head: Normocephalic Eyes: EOM's intact, conjunctiva pink and moist, no icterus, sclera white, non-injected Oropharynx:moderate erythema, without exudates present Heart: Negative. RRR without obvious murmur, gallop, or rubs. No ectopy. Lungs: clear to auscultation, without rales or wheeze, good air exchange PAST MEDICAL HISTORY Diagnosis Date Abdominal pain, right lower quadrant Diarrhea External hemorrhoids without mention of complication Hemorrhage of gastrointestinal tract, unspecified Ulcerative colitis (HCC) PAST SURGICAL HISTORY Procedure Laterality Date APPENDECTOMY COLONOSCOPY FLX DX W/COLLJ SPEC WHEN PFRMD 01/26/05 Colonoscopy SIGMOIDOSCOPY FLX W/BIOPSY SINGLE/MULTIPLE 04-08-07 TONSILLECTOMY PRIMARY/SECONDARY <AGE 13 Tonsillectomy ALLERGIES Ibuprofen MEDICATIONS azaTHIOprine (IMURAN) 50 mg tablet Take 50 mg by mouth once daily. mesalamine (ROWASA) 4 gram/60 mL enema 4 g by RECTAL route at bedtime as needed. OTC PRODUCT Culturale herbal supplement FAMILY HISTORY Problem Relation Age of Onset Cancer Paternal Grandmother Colon Hypertension Mother No Known Problems Father Social History Tobacco Use Smoking status: Former Smoker Packs/day: 0.50 Years: 10.00 Pack years: 5.00 Types: Cigarettes Quit date: 11/11/2002 Years since quittin.4 Smokeless tobacco: Never Used Substance Use Topics Alcohol use: Yes Comment: 2 beers once a month Drug use: No ASSESSMENT/PLAN: 1. Sore throat - ICD9: 462, ICD10: J02.9 - STREP A MOLECULAR (POC) - negative Does nto want a viral swab at this time. Will monitor symptoms. Potential red flag symptoms discussed with the patient. Reviewed appropriate action plan to take if red flag symptoms occur. Patient agreeable to treatment plan. Clarita Patel APRN.CLINICAL PROJECT COORDINATOR documented in this encounter [facility] Evaluation note Note Date & Type Note Facility documented in this encounter [facility] Evaluation note Note Date & Type Note Facility documented in this encounter [facility] Summary Purpose Family History No Family History Records Found Advance Directives No Advanced Directives Records Found Additional Source Comments Source Comments (unrecognize d section and content) In the event this informatio n is protected by the Federal Confidentiality of Alcohol and Drug Abuse Patient Records regulations: The Federal rules restrict any use of the information to criminally investigate or prosecute any alcohol or drug abuse patient[facility] event this information is protected by the Federal Confidentiality of Alcohol and Drug Abuse Patient Records regulations: The Federal rules restrict any use of the information to criminally investigate or prosecute any alcohol or drug abuse patient.[facility] Reason for Visit (unrecogniz ed section and content) Reason Comments Head Congestion cough,chest congesti on, sore throat and left ear pain x 10-14 days Care Teams (unrecognized sec tion and content) Camp Maintenance Supervisor Relationship Specialty Start Date End Date Sanya Delatorre MD PCP - General Family Medicine 09/16/11 (unrecognized sect ion and content) No Status Records Found INFORMATION SOURCE (unrecogn ized section and content) FOR RECORDS PERTAINING TO PATIENTS WHO ARE OR HAVE BEEN ENROLLED IN A CHEMICAL DEPENDENCY/SUBSTANCEABUSE PROGRAM, SOME INFORMATION MAY BE OMITTED. This clinical summary was aggregated from multiple sources. Caution should be exercised in using it in the provision of clinical care. This summary normalizes information from multiple sources, and as a consequence, information in this document may materially change the coding, format and clinical context of patient data. In addition, data may be omitted in some cases. CLINICAL DECISIONS SHOULD BE BASED ON THE PRIMARY CLINICAL RECORDS. [facility]. provides no warranty or guarantee of the accuracy or completeness of information in this document.
== END | disposition home or self-care (01) ==
PROVIDERS: PCP Family Medicine; Referring Provider Internal Medicine Gastroenterology; Visit Provider Internal Medicine Gastroenterology
DX: K82.4 Cholesterolosis of gallbladder (principal)
CPT/HCPCS: 76705

== ENCOUNTER → 2024-01-14 | Outpatient (CLI) | payer OTHER, SELFPAY ==
--- NOTE | 2024-01-14 17:09 | CT_ITS ---
INDICATION: abnormal ultra sound COMPARISON: December 20, 2023 abdominal ultrasound. IV Contrast dosage and agent: 88 mL Isovue-300 IV. A radiation dose optimization technique was used for this scan. RADIATION DOSAGE (If Supplied By Facility): CTDIvol/DLP = ( 21.98 ) / ( 1788.56 ) mGy/mGycm FINDINGS: Serial CT axial images through the abdomen only, pelvis excluded, both with and without intravenous contrast. Coronal and sagittal reformatted series provided. PANCREAS: No peripancreatic fat stranding. BOWEL/MESENTERY: No dilated bowel loops. No significant free fluid. No free air. GALLBLADDER: No pericholecystic fat stranding. LIVER/STOMACH: Fatty liver. URINARY COLLECTING SYSTEM/ KIDNEYS: No obstructing ureteral calculus. No significant renal parenchymal abnormality. APPENDIX: Absent appendix with pericecal surgical clips. LUNG BASES: Unremarkable. BONES: Old L1 anterior wedge compression deformity with associated ankylosis at this level. CT/Abdomen WITH IV Contrast IMPRESSION: No renal mass is appreciated. Fatty liver. Otherwise, unremarkable. Electronically Signed: Diego Sanchez MD at 0:01 EST ,
== END | disposition home or self-care (01) ==
LOC: CT 17:08
PROVIDERS: PCP Family Medicine; Referring Provider Family Medicine; Visit Provider Family Medicine
DX: R93.89 Abnormal findings on diagnostic imaging of other specified body structures (principal)
CPT/HCPCS: 74160; Q9967

== ENCOUNTER 2024-01-20 07:18 | Day surgery (SDC) | payer OTHER, SELFPAY ==
[2024-01-20] VITALS (7 sets, daily range): BP systolic 112–143; BP diastolic 74–89; PULSE 64–84; RESP 16–18; TEMP 36.1–36.4; O2SAT 95–98; BMI 35.0
--- OUTSIDE RECORDS SUMMARY | 2024-01-20 07:31 | XMS RPT_ITS | CCD ---
Author Name Unknown Address [address] [place] [address] Organization [facility] Care Team Providers Care Aerospace Project Manager Name Role Phone Bouchra Alvarado Unavailable Cathy Ibrahim Unavailable Bouchra Alvarado Unavailable Sanya Delatorre MD Primary Care Provider Sanya Delatorre MD Primary Care Provider [phone] SANYA DELATORRE Primary Care Unavailable SANYA DELATORRE Primary Care Unavailable Allergies Allergy Classification Reported Allergen(s) Allergy Type Date of Onset Reaction(s) Facility (3 sources) Ibuprofen; Translations: [IBUPROFEN] Drug Allergy 09-16-2011 Intolerance [facility] Work Phone: Medications Current Medications Medication [...] Start: 05-08-2017 AZATHIOPRINE 50 MG TABS AZATHIOPRINE [id number] Bouchra Alvarado Problems Active Problems Problem Classification [...] 97.81 [degF] Cathy Fontanez APRN.CNP Work Phone: [facility] 02-05-2023 19:00-0400 Body weight 119.3 kg Cathy Fontanez APRN.CNP Work Phone: [facility] 02-05-2023 19:00-0400 Diastolic blood pressure 80 mm[Hg] Cathy Fontanez APRN.CNP Work Phone: [facility] 02-05-2023 19:00-0400 Heart rate 94 /min Cathy Fontanez PUBLICATION DIRECTOR.AG[employer]ICULTURAL AIRCRAFT P[employer] Work Phone: [facility] 02-05-2023 19:00-0400 Respiratory rate 18 /min Cathy Fontanez PUBLICATION DIRECTOR.AGRICULTURAL AIRCRAFT PIL[employer] Work Phone: [facility] 02-05-2023 19:00-0400 SaO2% (BldA) [Mass fraction] 96 % Cathy Fontanez PUBLICATION DIRECTOR.AG[employer]ICULTURAL AIRCRAFT P[employer] Work Phone: [facility] 02-05-2023 19:00-0400 Systolic blood pressure 124 mm[Hg] Cathy Fontanez PUBLICATION DIRECTOR.[employer]ULTURAL AIRCRAFT [employer] Work Phone: [facility] 05-01-2022 07:12-0400 Body temperature 96.91 [degF] Clarita Patel PUBLICATION DIRECTOR.[employer]URAL AIRCRAFT [employer] Work Phone: [facility] 05-01-2022 07:12-0400 Body weight 112.04 kg Clarita Patel APRN.AG[employer]ULTURAL AIRCRAFT [employer] Work Phone: [facility] 05-01-2022 07:12-0400 Diastolic blood pressure 82 mm[Hg] Clarita Patel PUBLICATION DIRECTOR.AG[employer]ULTURAL AIRCRAFT P[employer] Work Phone: [facility] 05-01-2022 07:12-0400 Heart rate 84 /min Clarita Patel PUBLICATION DIRECTOR.AG[employer]ULTURAL AIRCRA[employer] Work Phone: [facility] 05-01-2022 07:12-0400 Respiratory rate 16 /min Clarita Patel PUBLICATION DIRECTOR.AG[employer]ULTURAL AIRCRA[employer] Work Phone: [facility] 05-01-2022 07:12-0400 SaO2% (BldA) [Mass fraction] 96 % Clarita Patel PUBLICATION DIRECTOR.[employer] Work Phone: [facility] 05-01-2022 07:12-0400 Systolic blood pressure 124 mm[Hg] Clarita Patel PUBLICATION DIRECTOR.[employer]ULTURAL AIRCRA[employer] Work Phone: [facility] 05-08-2017 08:47-0400 BMI (Body Mass Index) 32.07 kg/m2 [facility] Work Phone: 05-08-2017 08:47-0400 Height 180.34 cm Bouchra Alvarado [facility] Work Phone: 05-08-2017 [id number] Weight 104.33 kg Bouchra Alvarado [facility] Work Phone: Encounters Encounter Date Encounter Type Care Provider Facility Start: 02-05-2023 End: 02-05-2023 ambulatory SANYA DELATORRE Facility:[facility] Start: 02-05-2023 End: 02-05-2023 Patient encounter procedure Cathy Fontanez PUBLICATION DIRECTOR.AG[employer]ULTURAL AIRCRAFT P[employer]OT Work Phone: [facility] Procedures Date Procedure Procedure Detail Performing Clinician Start: 05-01-2022 STREP A MOLECULAR (POC) Clarita Patel PUBLICATION DIRECTOR.[employer]URAL AIRCRA[employer] Work Phone: Start: 05-08-2017 End: 05-08-2017 Drain/inject, joint/bursa Bouchra zuluaga Work Phone: Plan of Treatment Date Care Activity Detail Author Start: 11-11-2022 DEPRESSION ASSESSMENT DEPRESSION ASSESSMENT [facility] Start: 07-12-2022 Influenza vaccination [facility] Start: 05-31-2017 End: 05-31-2017 Appointment Appointment [facility] Work Phone: Start: 05-08-2017 End: 05-08-2017 Appointment Appointment [facility] Work Phone: Start: 05-08-2017 End: 05-08-2017 *BFRW - Body Fluid RBC, WBC & DIFF *BFRW - Body Fluid RBC, WBC & DIFF [facility] Work Phone: Start: 05-08-2017 End: 05-08-2017 Bacteria identified in Body fluid by Culture *CUBF- Culture, Body Fluid [facility] Work Phone: Start: 05-08-2017 End: 05-08-2017 Crystals [type] in Body fluid by Light microscopy *BLANQUITA - Crystals, Body Fluid [facility] Work Phone: Start: 05-08-2017 End: 05-08-2017 Glucose *GLUBF - Glucose, Body Fluid [facility] Work Phone: Start: 05-08-2017 End: 05-08-2017 Glucose mass conc (Body fld) *GLUBF - Glucose, Body Fluid [facility] Work Phone: Start: 05-08-2017 End: 05-08-2017 Mri jnt of lwr extre w/o dye MRI Joint Lower Extremity [facility] Work Phone: Start: 05-08-2017 End: 05-08-2017 Protein in fluid *PROBF - Protein, Body Fluid [facility] Work Phone: Start: 05-08-2017 End: 05-08-2017 X-ray exam, knee, 4 or more X-Ray, Knee [facility] Work Phone: Start: 2016 COLOGUARD (FIT-DNA) COLOGUARD (FIT-DNA) [facility] Start: 2016 Colonoscopy COLONOSCOPY [facility] Start: 2016 COLORECTAL CANCER SCREENING COLORECTAL CANCER SCREENING [facility] Start: [address] COLONOGRAPHY [facility] Start: 2016 DIABETES SCREEN DIABETES SCREEN [facility] Start: 2016 FECAL OCCULT BLOOD FECAL OCCULT BLOOD [facility] Start: 2016 SIGMOIDOSCOPY SIGMOIDOSCOPY [facility] Start: 2006 LIPID SCREEN LIPID SCREEN [facility] Start: 1990 SHINGRIX VACCINE (1 of 2) SHINGRIX VACCINE (1 of 2) [facility] Start: 1990 Urine microalbumin profile DTAP,TDAP,TD (1 - Tdap) [facility] Start: 1989 HEPATITIS C SCREENING HEPATITIS C SCREENING [facility] Start: 1989 HIV SCREENING HIV SCREENING [facility] Start: 1983 Adult depression screening assessment DEPRESSION SCREENING [facility] Start: 1977 PNEUMOCOCCAL (1 - PCV) PNEUMOCOCCAL (1 - PCV) [facility] Start: 1976 COVID-19 VACCINE (#1) COVID-19 VACCINE (#1) [facility] Start: 1971 COVID-19 VACCINE (#1) COVID-19 VACCINE (#1) [facility] Start: 1971 HEPATITIS B (1 of 3 - 3-dose series) HEPATITIS B (1 of 3 - 3-dose series) [facility] Payers Date Payer Category Payer Unknown [employer] PPO [id number] 2021-Present [phone] [address] [place] [address] PPO [id number] 2021 Unknown [id number] Social History Date Type Detail Facility Start: 02-05-2023 Tobacco smoking stat [facility] Ex-smoker [facility] Work Phone: End: 11-11-2002 History of tobacco use Current smoker [facility] Work Phone: End: 11-11-2002 History of tobacco use Cigarette Smoker [facility] Work Phone: Start: 05-01-2022 End: 02-05-2023 Alcohol intake Current drinker of alcohol (finding) [facility] Start: 04-29-2018 History SDOH Alcohol Comment 2 beers once a month [facility] Start: 1971 Sex Assigned At Not on file C [facility] Start: 04-21-2022 End: 05-01-2022 Exposure to SARS-CoV-2 (event) Not sure [facility] Work Phone: Start: 02-05-2023 Cigarettes smoked current (pack per day) - Reported 0.5 [facility] Start: 02-05-2023 Tobacco use and exposure Smokeless tobacco non-user [facility] Work Phone: Progress note 02-05-2023 Note Date & Type Note Facility 02-05-2023 Note HNO ID: [id number] Author: Cathy Fontanez APRN.AGRICULTURAL AIRCRAFT PILOT Service: ? Author Type: Nurse Practitioner Type: [...] lesions. Denies using homeopathic or OTC medications RECREATIONAL RESORT MANAGER. 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 The history is provided by the patient. No kiln door repairer was used. Sinus Problem This is a [...] flat. There is (more content not included)... [facility] History of Present illness Narrative 02-05-2023 Cathy Fontanez APRN.AGRICULTURAL AIRCRAFT PILOT - 02/05/2023 7:04 PM EDT Note Date & Type Note Facility 02-05-2023 History of Presen t illness Narrative This note was created using [employer]. Subjective Theresa Sterling is a 52 year [...] lesions. Denies using homeopathic or OTC medications RECREATIONAL RESORT MANAGER. 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 The history is provided by the patient. No kiln door repairer was used. Sinus Problem This is a [...] care with fluids and rest Cathy Fontanez APRN.AGRICULTURAL AIRCRAFT PILOT documented in this encounter [facility] Progress note 05-01-2022 Note Date & Type Note Facility 05-01-2022 Note HNO ID: [id number] Author: Clarita Patel APRN.AGRICULTURAL AIRCRAFT PILOT Service: ? Author Type: Nurse Practitioner Type: [...] agreeable to treatment plan. Clarita Patel APRN.ALAYNA [facility] History of Present illness Narrative 05-01-2022 Clarita [...] Patient agreeable to treatment plan. Clarita Patel APRN.AGRICULTURAL AIRCRAFT PILOT documented in this encounter [facility] Evaluation note Note Date & Type Note Facility documented in this encounter [facility] Evaluation note Note Date & Type Note Facility documented in this encounter [facility] Summary Purpose Family History No Family [...] or prosecute any alcohol or drug abuse patient.[facility] the event this information is protected by the Federal Confidentiality of Alcohol and Drug Abuse Patient Records regulations: The Federal rules restrict any use of the information to criminally investigate or prosecute any alcohol or drug abuse patient.[facility] Reason for Visit (unrecogniz ed section and content) Reason Comments Head Congestion cough,chest congesti on, sore throat and left ear pain x 10-14 days Care Teams (unrecognized sec tion and content) Aerospace Project Manager Relationship Specialty Start Date End Date Sanya [...] BE BASED ON THE PRIMARY CLINICAL RECORDS. [facility]. provides no warranty or guarantee of the accuracy or completeness of information in this document.
[2024-01-20] MEDS: Lactated Ringers 1,000 ML 15 ML IV (07:45)
--- NOTE | 2024-01-20 08:00 | PCM.HP.BLA ---
History and Physical Date of Admission: 01/20/24 SAMANTHA KELLEY, is a 52 M who presents to the office today for a follow up visit regarding ulcerative colitis. GI Dr. Bateman established previously who notes UC symptoms can include diarrhea and rectal bleeding with flares. Managed with azathioprine 100mg QD and mesalamine enema PRN. History of suppository use. Colonoscopy with Dr. Bateman 07.05.14 finding rectal friability with exudate and ulceration and persisted for 22cm. Remaining exam without abnormality. Colonoscopy 01.01.[address] Bateman with normal mucosa noted. Pathology without changes. *I established 11.02.22 with previously diagnosed UC approximately 7 years prior. Symptoms at this time include diffuse abdominal discomfort present on a daily basis with no aggravating or alleviating factors; stools are lose 1-2 times a day without blood/mucus at this time. Flares do occur and he has had approximately 4 this year: symptoms include increased stooling frequency with blood/mucous and significant urgency, abdominal pain does not vary. ? Biochemical workup celiac, ASM, AMA, GAME, CRP, ESR, LDH, ferritin, JESSIE, Vit B12, Vit D1,25, Vit D25, folate, CMP, IBD profile without pertinent abnormality. GLORIA H83, p-ANCA H1:20 TPMT activity 20.9 (normal); TMPT genotype 1/1, wild (normal) TPMT activity with residual risk of mutation not detected on assay. Stool lactoferrin, calprotectin, elastase, C.Difficile, EP, fat, O/P, giardia WNL US RUQ and elastography 1.. hepatic measurement 15.4 with stiffness 7.3kPa F1; 5mm gallbladder polyp. Biochemical workup, VM .08.03 ? Biochemical workup CEA, CA19-9, intrinsic factor, anti-parietal cell ab. Stool studies fecal fat, calprotectin WNL OV 3. He continues to have diarrhea 10+/day, abdominal pain, blood in stool and bloating. He has been using previously prescribed mesalamine enemas are helpful with diarrhea consistency and frequency, abdominal pain and blood. Azathioprine 100mg continues. Current weight 260lbs. ROS Const Constitutional: No body ache, chills, fatigue, fever(s) or headache(s) ENT ENT: Positive for sore throat; No ear or mastoid pain, nasal congestion, sinus pressure, sinus pain, nasal discharge, headache(s), difficulty swallowing, mouth lesions, tongue swelling or throat swelling Resp Respiratory: No cough Gastro GI: No difficulty swallowing Skin Skin: No rash Neuro Neurology: No headache(s) Endo Endocrine: No fatigue Aller/Imm Allergy/Immunologic: No throat swelling or tongue swelling Exam Const General: cooperative HENMT Head: normal to inspection Ears: TM's normal bilaterally Nose: external nose normal Face and sinus: normal facial exam Mouth: oral mucosae normal Teeth and gingiva: dentition normal Throat: posterior oropharynx abnormal cobblestoning Resp Auscultation: Bilateral: Clear to Auscultation Cardio Rate: regular rate Rhythm: regular rhythm Heart Sounds: S1 normal and S2 normal Quality Reporting Tobacco Screening ([facility] 138) Smoking Status: Never smoker Assessment and Plan Assessment and Plan (1) Ulcerative colitis: Status: Chronic Qualifiers: Ulcerative colitis location: ulcerative rectosigmoiditis Digestive disease complication type: without complication Qualified Code(s): 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 He is on 100 mg of Imuran per day. His weight is 226 pounds. We will increased his Imuran to 200 mg a day and we will check his amylase, lipase, TPMT enzymatic activity, and his liver enzymes. He was still getting intermittent diarrhea and intermittent lower GI bleeding. We started Sterlara and he is doing very well without any complains. He has received three doses of the medication. He will need antibody and drug levels after next injeciton. (2) Gallbladder polyp: Status: Chronic Plan: He will need repeat imaging on next visit to monitor the size of the polyp. (3) Abdominal pain: Status: Inactive Qualifiers: Abdominal location: left lower quadrant Qualified Code(s): R10.32 - Left lower quadrant pain Plan: I am assuming that his abdominal pain is associated with his ulcerative colitis. Also could be associated with irritable bowel syndrome. As far as he knows he does not have any extraintestinal manifestations of ulcerative colitis. ultrasound of his liver and a FibroScan displayed a low risk plan of 15 cm and Medavire score of 7.5. Coding Level of Care Code Off vis,est,level 4 Diagnoses Ulcerative rectosigmoiditis without complication K51.30 Ulcerative colitis location: ulcerative rectosigmoiditis Digestive disease complication type: without complication Gallbladder polyp K82.4 Left lower quadrant abdominal pain R10.32 Abdominal location: left lower quadrant I have examined the patient and the H&P has been reviewed. There are no clinical changes since date of exam.
--- NOTE | 2024-01-20 08:30 | EGD_PTH ---
PATHOLOGY RESULTS PATIENT: SAMANTHA KELLEY LOC: EN U#:[id number] AGE/SX: 53/M ROOM: RE01/20/[address]: Dr. Martell Rothman DO : 1970 BED: DIS: 01/20/2024 SPEC #: [id number] RECD: 01/20/24 10:13 STATUS: GUILLE ALIDA #: [id number] IAN: 01/20/24 08:[address]: Martell Rothman DEPT: SURGICAL PATHOLOGY RECD BY: Alivia Kim ENTERED: 01/20/24 11:52 SP TYPE: EGD BIOPSY ALYSSA DR: Dr. Sanya Arndt MD Tissues: Duodenum, NOS Ileum, NOS Descending colon Sigmoid colon biopsy Rectum, NOS Procedures: Surgery Specimen Level IV HEADER OPERATION: Colonoscopy, EGD biopsy PRE-OP DIAGNOSIS: Ulcerative colitis TISSUE SUBMITTED: A- Duodenum biopsy, B-Terminal Ileum biopsy ,C-Descending biopsy, D- Sigmoid biopsy, E- Rectal biopsy MICROSCOPIC DIAGNOSIS A. Duodenum, biopsy; No pathologic change. B. Terminal Ileum, biopsy; No pathologic change. C. Descending colon, biopsy; No pathologic change. D. Sigmoid colon, biopsy; Chronic active colitis pattern of injury. No evidence of dysplasia. See comment. E. Rectum, biopsy Chronic colitis pattern of injury. See comment. SEBAS/ 01/21/24 COMMENT D. Sections show cryptitis, crypt abscesses and glandular distortion. Prominent lymphoid aggregates are present in the mucosa. Clinical correlation is suggested. E. Sections show glandular distortion, expansion of lamina propria by inflammatory cells and glandular distortion. Shawn activity is not identified. Clinical correlation suggested. MICROSCOPIC DESCRIPTION Slides are reviewed. GROSS DESCRIPTION A- Received in fixative is one container labeled with the patient's name and designated duodenum biopsy. The specimen consists of multiple irregular fragments of light saleem soft tissue that in aggregate measure 1.0 x 0.5 x 0.1 cm. The specimen is totally submitted in one cassette. B- Received in fixative is one container labeled with the patient's name and designated Terminal Ileum biopsy. The specimen consists of multiple irregular fragments of light saleem soft tissue that in aggregate measure 1.5 x 0.5 x 0.1 cm. The specimen is totally submitted in one cassette. C-Received in fixative is one container labeled with the patient's name and designated Descending biopsy. The specimen consists of multiple irregular fragments of light saleem soft tissue that in aggregate measure 1.5 x 0.5 x 0.1 cm. The specimen is totally submitted in one cassette. D- Received in fixative is one container labeled with the patient's name and designated Sigmoid biopsy. The specimen consists of multiple irregular fragments of light saleem soft tissue that in aggregate measure 1.5 x 0.6 x 0.1 cm. The specimen is totally submitted in one cassette. E-Received in fixative is one container labeled with the patient's name and designated Rectal biopsy. The specimen consists of two irregular fragments of light saleem soft tissue that in aggregate measure 0.6 x 0.5 x 0.1 cm. The specimen is totally submitted in one cassette. SEBAS/ 01/20/2024 TC:2 CPT:75315h6
--- NOTE | 2024-01-20 08:59 | OP.CCLET_ITS ---
01/20/2024 Sanya Arndt MD [address] [phone] Re : Upper GI endoscopy procedure for [facility] Dear Dr. Arndt This procedure was performed on Saturday, January 20, 2024. My impressions and recommendations are as follows: Impressions : - Normal esophagus. - Normal stomach. - Erythematous duodenopathy. Biopsied. Recommendations : - Discharge patient to home. - Resume previous diet. - Continue present medications. - Await pathology results. My findings are described in the full procedure note, which is enclosed. If I can be of further assistance, please feel free to contact me at . Sincerely, Martell Rothman, 01/20/2024 8:58:30 AM This report has been signed electronically.
--- NOTE | 2024-01-20 08:59 | OP.EGD_ITS ---
Patient Name: Arsalan Sterling Procedure Date: 01/20/2024 8:22 AM Date of : 1970 Age: 53 Procedure: Upper GI endoscopy Indications: Generalized abdominal pain, Dyspepsia Providers: DO Gabriella Paez MD: Sanya Arndt MD Medicines: Monitored Anesthesia Care Patient Profile: This is a 53 year old male. Refer to note in patient chart for documentation of history and physical. Patient has symptoms of acute abdominal cramping and chronic epigastric abdominal pain. Complications: No immediate complications. Procedure: Pre-Anesthesia Assessment: - Prior to the procedure, a History and Physical was performed, and patient medications and allergies were reviewed. The patient is competent. The risks and benefits of the procedure and the sedation options and risks were discussed with the patient. All questions were answered and informed consent was obtained. Patient identification and proposed procedure were verified by the physician in the pre-procedure area. Mental Status Examination: alert and oriented. Airway Examination: normal oropharyngeal airway and neck mobility. Respiratory Examination: clear to auscultation. CV Examination: normal. Prophylactic Antibiotics: The patient does not require prophylactic antibiotics. Prior Anticoagulants: The patient has taken no anticoagulant or antiplatelet agents. After reviewing the risks and benefits, the patient was deemed in satisfactory condition to undergo the procedure. The anesthesia plan was to use monitored anesthesia care (MAC). Immediately prior to administration of medications, the patient was re-assessed for adequacy to receive sedatives. The heart rate, respiratory rate, oxygen saturations, blood pressure, adequacy of pulmonary ventilation, and response to care were monitored throughout the procedure. The physical status of the patient was re-assessed after the procedure. After obtaining informed consent, the endoscope was passed under direct vision. Throughout the procedure, the patient's blood pressure, pulse, and oxygen saturations were monitored continuously. The colonoscope was introduced through the mouth, and advanced to the second part of duodenum. The upper GI endoscopy was accomplished without difficulty. The patient tolerated the procedure well. Scope In: 8:33:34 AM Scope Out: 8:37:28 AM Total Procedure Duration Time 0 hours 3 minutes 54 seconds Findings: The examined esophagus was normal. The entire examined stomach was normal. Patchy mildly erythematous mucosa without active bleeding and with no stigmata of bleeding was found in the duodenal bulb. Biopsies were taken with a cold forceps for histology. Verification of patient identification for the specimen was done. Estimated blood loss was minimal. Impression: - Normal esophagus. - Normal stomach. - Erythematous duodenopathy. Biopsied. Recommendation: - Discharge patient to home. - Resume previous diet. - Continue present medications. - Await pathology results. Procedure Code(s): --- Professional --- 72247, Esophagogastroduodenoscopy, flexible, transoral; with biopsy, single or multiple CPT copyright 2021 [employer]. All rights reserved. The codes documented in this report are preliminary and upon capacity planner review may be revised to meet current compliance requirements. Martell Rothman DO 01/20/2024 8:58:30 AM This report has been signed electronically. Number of Addenda: 0 Note Initiated On: 01/20/2024 8:22 AM
--- NOTE | 2024-01-20 09:02 | OP.CCLET_ITS ---
01/20/2024 Sanya Arndt MD [address] [phone] Re : Colonoscopy procedure for [facility] Dear Dr. Arndt This procedure was performed on Saturday, January 20, 2024. My impressions and recommendations are as follows: Impressions : - Moderately active (Marcelo Score 2) ulcerative colitis, unchanged since the last examination. Biopsied. - The examined portion of the ileum was normal. Biopsied. Recommendations : - Discharge patient to home. - Resume previous diet. - Continue present medications. - Await pathology results. - Repeat colonoscopy in 1 year for surveillance. My findings are described in the full procedure note, which is enclosed. If I can be of further assistance, please feel free to contact me at . Sincerely, Martell Rothman, 01/20/2024 9:02:00 AM This report has been signed electronically.
--- NOTE | 2024-01-20 09:02 | OP.COLON_ITS ---
Patient Name: Arsalan Sterling Procedure Date: 01/20/2024 8:37 AM Date of : 1970 Age: 53 Procedure: Colonoscopy Indications: Left-sided chronic ulcerative colitis Providers: Matrell Rothman DO Referring MD: Sanya Arndt MD Medicines: Monitored Anesthesia Care Patient Profile: This is a 53 year old male. Refer to note in patient chart for documentation of history and physical. Patient has symptoms of acute abdominal cramping and chronic epigastric abdominal pain. Last Colonoscopy: 5 years ago. Complications: No immediate complications. Procedure: Pre-Anesthesia Assessment: - Prior to the procedure, a History and Physical was performed, and patient medications and allergies were reviewed. The patient is competent. The risks and benefits of the procedure and the sedation options and risks were discussed with the patient. All questions were answered and informed consent was obtained. Patient identification and proposed procedure were verified by the physician in the pre-procedure area. Mental Status Examination: alert and oriented. Airway Examination: normal oropharyngeal airway and neck mobility. Respiratory Examination: clear to auscultation. CV Examination: normal. Prophylactic Antibiotics: The patient does not require prophylactic antibiotics. Prior Anticoagulants: The patient has taken no anticoagulant or antiplatelet agents. After reviewing the risks and benefits, the patient was deemed in satisfactory condition to undergo the procedure. The anesthesia plan was to use monitored anesthesia care (MAC). Immediately prior to administration of medications, the patient was re-assessed for adequacy to receive sedatives. The heart rate, respiratory rate, oxygen saturations, blood pressure, adequacy of pulmonary ventilation, and response to care were monitored throughout the procedure. The physical status of the patient was re-assessed after the procedure. After I obtained informed consent, the scope was passed under direct vision. Throughout the procedure, the patient's blood pressure, pulse, and oxygen saturations were monitored continuously. The colonoscope was introduced through the anus and advanced to the terminal ileum. The colonoscopy was performed without difficulty. The patient tolerated the procedure well. The quality of the bowel preparation was adequate. The terminal ileum, ileocecal valve, appendiceal orifice, and rectum were photographed. Scope In: 8:40:19 AM Scope Withdrawal Time 0 hours 9 minutes 13 seconds Scope Out: 8:53:26 AM Total Procedure Duration Time 0 hours 13 minutes 7 seconds Findings: The perianal and digital rectal examinations were normal. Inflammation was found in a continuous and circumferential pattern from the rectum to the descending colon. This was graded as Marcelo Score 2 (moderate, with marked erythema, absent vascular pattern, friability, erosions), and when compared to the previous examination, the findings are unchanged. Biopsies were taken with a cold forceps for histology. Verification of patient identification for the specimen was done. Estimated blood loss was minimal. The terminal ileum appeared normal. Biopsies were taken with a cold forceps for histology. Verification of patient identification for the specimen was done. Estimated blood loss was minimal. Impression: - Moderately active (Marcelo Score 2) ulcerative colitis, unchanged since the last examination. Biopsied. - The examined portion of the ileum was normal. Biopsied. Recommendation: - Discharge patient to home. - Resume previous diet. - Continue present medications. - Await pathology results. - Repeat colonoscopy in 1 year for surveillance. Procedure Code(s): --- Professional --- 89643, Colonoscopy, flexible; with biopsy, single or multiple CPT copyright 2021 [employer]. All rights reserved. The codes documented in this report are preliminary and upon hogshead weigher review may be revised to meet current compliance requirements. Martell Rothman DO 01/20/2024 9:02:00 AM This report has been signed electronically. Number of Addenda: 0 Note Initiated On: 01/20/2024 8:37 AM
== END 2024-01-20 10:15 | disposition home or self-care (01) ==
LOC: EN 07:18 → AC 07:19
PROVIDERS: PCP Family Medicine; Referring Provider Family Medicine; Visit Provider Internal Medicine Gastroenterology
PROC: 0DJD8ZZ Inspection of Lower Intestinal Tract, Via Natural or Artificial Opening Endoscopic (ICD-10-PCS; CPT 45378; principal; 2024-01-20 08:25)
DX: K51.30 Ulcerative (chronic) rectosigmoiditis without complications (principal); R10.32 Left lower quadrant pain; K82.4 Cholesterolosis of gallbladder
CPT/HCPCS: 45380; 43239; 88305; J7120; J2405

== ENCOUNTER → 2024-07-23 | Outpatient (CLI) | payer OTHER, SELFPAY ==
[2024-07-23 16:23] LABS: Erythrocyte Sedimentation Rate 2 mm/hr (0-20)
== END | disposition home or self-care (01) ==
PROVIDERS: PCP Family Medicine; Referring Provider Internal Medicine Gastroenterology; Visit Provider Internal Medicine Gastroenterology
DX: K51.30 Ulcerative (chronic) rectosigmoiditis without complications (principal)
CPT/HCPCS: 36415; 85652

== ENCOUNTER → 2024-07-24 | Outpatient (CLI) | payer OTHER, SELFPAY ==
[2024-07-28 20:08] LABS: Calprotectin, Stool 266 ug/g (0-120)
== END | disposition home or self-care (01) ==
PROVIDERS: PCP Family Medicine; Referring Provider Internal Medicine Gastroenterology; Visit Provider Internal Medicine Gastroenterology
DX: K51.30 Ulcerative (chronic) rectosigmoiditis without complications (principal)
CPT/HCPCS: 83993

== ENCOUNTER → 2025-01-13 | Outpatient (CLI) | payer OTHER, SELFPAY ==
--- NOTE | 2025-01-13 15:30 | RAD_ITS ---
PROCEDURE: KNEE 4 OR MORE VIEWS REASON FOR EXAM: Pain TECHNIQUE: 4 view(s) of the right knee COMPARISON: None. FINDINGS: No fracture. No suspicious bone lesion. Mild tricompartmental degenerative changes No effusion. Soft tissues are unremarkable. RAD/Knee 4 or More Views IMPRESSION: Mild degenerative changes with no acute osseous abnormality in the right knee Reading Location: [facility]
--- NOTE | 2025-01-13 15:30 | RAD_ITS ---
PROCEDURE: KNEE 4 OR MORE VIEWS REASON FOR EXAM: Pain TECHNIQUE: 4 view(s) of the left knee COMPARISON: None. FINDINGS: No fracture. No suspicious bone lesion. Mild tricompartmental degenerative changes No effusion. Soft tissues are unremarkable. RAD/Knee 4 or More Views IMPRESSION: Mild degenerative changes with no acute osseous abnormality in the left knee Reading Location: [facility]
== END | disposition home or self-care (01) ==
LOC: MTRAD 15:29
PROVIDERS: PCP Family Medicine; Referring Provider Family Medicine; Visit Provider Family Medicine
DX: M25.561 Pain in right knee (principal); M25.562 Pain in left knee
CPT/HCPCS: 73564

== ENCOUNTER → 2025-01-27 | Outpatient (CLI) | payer OTHER, SELFPAY ==
[2025-01-27 09:30] LABS: Erythrocyte Sedimentation Rate < 1 mm/hr (0-20)
[2025-01-27 10:09] LABS: CRP < 3.00 mg/L (0.0-3.0)
== END | disposition home or self-care (01) ==
LOC: LAB 07:49
PROVIDERS: PCP Family Medicine; Referring Provider Student in an Organized Health Care Education/Training Program; Visit Provider Student in an Organized Health Care Education/Training Program
DX: K51.30 Ulcerative (chronic) rectosigmoiditis without complications (principal)
CPT/HCPCS: 36415; 85652; 86140

== ENCOUNTER → 2025-01-28 | Outpatient (CLI) | payer OTHER, SELFPAY ==
[2025-02-01 17:08] LABS: Calprotectin, Stool 66 ug/g (0-120)
== END | disposition home or self-care (01) ==
LOC: LABSPEC 13:49
PROVIDERS: PCP Family Medicine; Referring Provider Student in an Organized Health Care Education/Training Program; Visit Provider Student in an Organized Health Care Education/Training Program
DX: K51.30 Ulcerative (chronic) rectosigmoiditis without complications (principal)
CPT/HCPCS: 83993

== ENCOUNTER → 2025-07-27 | Outpatient (CLI) | payer OTHER, SELFPAY ==
[2025-07-27 08:45] LABS: Hematocrit 40.7 % (40-54); Hemoglobin 14.2 g/dL (13.0-16.5); Immature Granulocytes Count 0.030 X10^3/uL (0.0-0.0); Mean Corp Hgb Conc 34.9 g/dL (32-36); Mean Corpuscular Volume 91.1 fL (80-94); Mean Platelet Vol. 10.1 fl (6.2-12.0); NRBC Flagged by Analyzer 0 % (0-5); Platelet Count 179 K/mm3 (150-450); RBC Distribution Width CV 12.0 % (11.6-14.6); RBC Distribution Width SD 40.5 fl (35.1-43.9); Red Blood Count 4.47 M/mm3 (4.6-6.2); White Blood Count 6.2 K/mm3 (4.4-11.0)
[2025-07-27 09:34] LABS: AST(SGOT) 24 U/L (<=37); Alanine Aminotransfer ALT/SGPT 20 U/L (<=46); Albumin, Serum 4.1 g/dL (3.5-5.0); Alkaline Phosphatase 76 U/L (40-129); Anion Gap 11 (5-15); BUN 12 mg/dL (4-19); BUN/Creat Ratio 13.3 RATIO (10-20); CRP < 3.00 mg/L (0.0-3.0); Calcium,Total 9.0 mg/dL (7.6-11.0); Carbon Dioxide 23.0 mmol/L (21.0-32.0); Chloride 106 mmol/L (98-108); Globulin 2.1 g/dL (2.2-4.2); Glucose 106 mg/dL (70-99); Potassium 4.3 mmol/L (3.3-5.1)
== END | disposition home or self-care (01) ==
LOC: LAB 07:55
PROVIDERS: PCP Family Medicine; Referring Provider Student in an Organized Health Care Education/Training Program; Visit Provider Student in an Organized Health Care Education/Training Program
DX: K51.30 Ulcerative (chronic) rectosigmoiditis without complications (principal)
CPT/HCPCS: 36415; 80053; 85025; 85652; 86140

== ENCOUNTER → 2025-07-29 | Outpatient (CLI) | payer OTHER, SELFPAY ==
--- OUTSIDE RECORDS SUMMARY | 2025-07-29 06:33 | XMS RPT_ITS | CCD ---
Author Organization [facility] Care Team Providers Care Pharmacy Sales Representative Name Role Phone Bouchra Alvarado Unavailable Alexandria Cathy N Unavailable Bouchra Alvarado Unavailable [phone] Sanya Delatorre MD Primary Care Provider [phone] Dr. Sanya Delatorre Primary Care Provider Dr. Sanya Delatorre Referring Provider 1([facility])[phone] Martell Rothman Attending Provider 1([facility])[phone] Sanya Delatorre MD Primary Care Provider SANYA DELATORRE Primary Care Unavailable SANYA DELATORRE Primary Care Unavailable Dr. Sanya Delatorre Primary Care Provider Dr. Sanya Delatorre Referring Provider Dr. Martell Rothman Attending Provider 1([facility])[phone] Dr. Sanya Delatorre Primary Care Provider Dr. Sanya Delatorre Referring Provider Dr. Martell Rothman Attending Provider 1([facility])[phone] Dr. Martell Rothman Other Provider 1([facility])[phone] Sanya Delatorre MD Primary Care Provider Dr. Sanya Delatorre MD Referring Provider Nirmal Jasso Attending Provider Dr. Sanya Delatorre MD Attending Provider Denise Iyer Attending Provider Denise Iyer Referring Provider Yris FISH, Dr. Segundo Primary Care Provider [phone] Dr. Sanya Delatorre MD Referring Provider Dirk LYRIC WRITER-CDeborah Attending Provider Bethanie LYRIC WRITER-C, Huy Krishnamurthy Attending Provider Denise Iyer Attending Provider Yris, Sanya Referring Unavailable Delatorre, Sanya Primary Care Unavailable Atanasov, Denise Attending Unavailable Delatorre, Sanya Primary Care Unavailable Deborah Cavazos Attending Unavailable Delatorre, Sanya Referring Unavailable Delatorre, Sanya Referring Unavailable Delatorre, Sanya Primary Care Unavailable Bethanie LYRIC WRITER, Huy Krishnamurthy Attending Unavailable Atanasov, Denise Attending Unavailable Delatorre, Sanya Referring Unavailable Delatorre, Sanya Primary Care Unavailable Atanasov, Denise Attending Unavailable Delatorre, Sanya Primary Care Unavailable Atanasov, Denise Referring Unavailable Delatorre, Sanya Primary Care Unavailable Atanasov, Denise Attending Unavailable Atanasov, Denise Referring Unavailable Atanasov, Denise Attending Unavailable Delatorre, Sanya Primary Care Unavailable Atanasov, Denise Referring Unavailable Delatorre, Sanya Primary Care Unavailable Atanasov, Denise Attending Unavailable Atanasov, Denise Referring Unavailable Delatorre, Sanya Attending Unavailable Delatorre, Sanya Referring Unavailable Delatorre, Sanya Primary Care Unavailable Delatorre, Sanya Referring Unavailable Delatorre, Sanya Primary Care Unavailable Nirmal Jasso Attending Unavailable Delatorre, Sanya Referring Unavailable Delatorre, Sanya Primary Care Unavailable Nirmal Jasso Attending Unavailable Allergies Allergy Classification Reported Allergen(s) Allergy Type Date of Onset Reaction(s) Facility (16 sources) Ibuprofen; Translations: [IBUPROFEN] Drug Allergy 09-16-2011 Intolerance [facility] Work Phone: (1 source) Ibuprofen Drug Allergy 07-04-2025 [facility] Rep[facility] Medications Current Medications Medication Drug Class(es) Dates Sig (Normalized) Sig (Original) FLUoxetine 20 mg oral capsule (13 sources) Serotonin Reuptake Inhibitor Start: 08-30-2022 take 1 capsule by mouth once daily Fluoxetine 20 mg capsule Active 20 mg PO DAILY August 30, 2022 12:00am Multivitamin preparation (7 sources) Start: 08-30-2022 take 1 tablet by mouth once daily Multivitamin Active 1 TABLET PO DAILY August 30, 2022 12:00am Start: 08-30-2022 take 1 tablet by delmy th once daily Multivitamin Active 1 TABLET PO DAILY August 29, 2022 11:00pm Multivitamin tablet (6 sources) Start: 08-30-2022 Multivitamin t ablet Active 1 {tbl} PO DAILY August 30, 2022 12:00am omeprazole 20 mg delayed release oral capsule (18 sources) Proton Pump Inhibitor Start: 08-30-2022 End: 07-27-2025 take 1 capsule by mouth once daily Omeprazole 20 mg capsule,delayed release(DR/EC) Active 20 mg PO daily 60 2 January 27, 2025 12:00am Completed/Discontinued Medications Medication Drug Class(es) Dates Sig (Normalized) Sig (Original) amoxicillin 875 mg / clavulanate 125 mg oral tablet (3 sources) Penicillin-class Antibacterial Start: 07-04-2025 End: 07-11-2025 Amoxicillin-Pot Clavulanate 875-125 mg tablet Discontinued 1 {tbl} PO TWICE A DAY 14 7 0 July 04, 2025 12:00am July 10, 2025 12:00am July 11, 2025 12:09am Start: 02-05-2023 End: 02-12-2023 take 1 tablet by mouth twice daily amoxicillin-clavulanic acid (AUGMENTIN) 875-125 mg per tablet Take 1 tablet by mouth twice daily for 7 days. 14 tablet 0 02/05/2023 02/12/2023 Active Comment on above: Take 1 tablet by delmy twice daily for 7 days. azaTHIOprine 50 mg oral tablet (20 sources) Purine Antimetabolite Start: 08-30-20 End: 02-29-20 take 1 tablet by mouth twice daily Azathioprine 50 mg tablet Discontinued 50 mg PO TWICE A DAY August 30, 2022 12:00am February 28, 2023 11:21am Start: 05-08-2017 AZATHIOPRINE 5 0 MG TABS AZATHIOPRINE [id number] Bouchra Alvarado Comment on above: Take 50 mg by mouth once daily. azithromycin 250 mg oral tablet (6 sources) Macrolide Antimicrobial Start: 12-25-19 End: 01-28-20 take 2-5 tablets by mouth once daily Azithromycin 250 mg tablet Discontinued 0 PO .COMPLEX 6 0 December 25, 2024 1:00am January 27, 2025 7:31am take 500 mg today (day 1), then 250 mg for 4 days (days 2-5) PO benzonatate 100 mg oral capsule (6 sources) Non-narcotic Antitussive Start: 12-25-19 End: 01-28-20 take 2 capsules by mouth three times daily as needed for cough Benzonatate 100 mg capsule Discontinued 200 mg PO THREE TIMES A DAY as needed for cough 30 0 December 25, 2024 1:00am January 27, 2025 7:32am cephalexin 500 mg oral capsule (12 sources) Cephalosporin Antibacterial Start: 08-17-20 End: 08-27-20 take 1 capsule by mouth every twelve hours Cephalexin 500 mg capsule Discontinued 500 mg PO Q12H 20 10 August 17, 2024 12:00am August 26, 2024 12:00am August 27, 2024 12:09am Start: 03-17-2024 End: 08-17-2024 take 1 capsule by mouth three times daily Cephalexin 500 mg capsule Discontinued 500 mg PO THREE TIMES A DAY 30 0 March 17, 2024 12:00am August 17, 2024 4:31pm mesalamine 66.7 mg/ml enema (20 sources) Aminosalicylate Start: 07-07-2024 End: 01-27-2025 Mesalamine 4 gram/60 mL enema Discontinued 4 g RC AT BEDTIME 1680 3 July 07, 2024 10:06am January 27, 2025 7:32am Start: 08-30-2022 End: 02-13-2023 Mesalamine 4 gram/60 mL enem a Discontinued 4 g RC AT BEDTIME August 30, 2022 12:00am February 13, 2023 4:45pm Start: 05-08-2017 MESALAMINE-LIN ANSER 4 GM KIT MESALAMINE-CLEANSER [id number] Bouchra Alvarado take [address] e every twenty-four hours as needed mesalamine (ROWASA) 4 gram/60 mL enema 4 g by RECTAL route at bedtime as needed. 0 Active Comment on above: 4 g by RECTAL route at bedtime as needed. Drug Treatment Unknown - unknown (1 source) No information available. OTC PRODUCT (2 sources) Start: 7 OTC PRODUCT Tremainee herbal supplement 0 04/04/2007 Active Comment on above: Hi herbal sup plement predniSONE 50 mg oral tablet (13 sources) Start: End: take 1 tablet by mouth every six hours Prednisone 50 mg tablet Discontinued 50 mg PO EVERY 6 HOURS 60 January 20, 2024 12:00am January 21, 2024 11:42am Start: 01-20-2024 End: 02-02-2024 take 2 tablets by mouth once daily Prednisone 20 mg tablet Discontinued 40 mg PO .daily 60 January 20, 2024 12:00am February 02, 2024 1:44pm 1 ml ustekinumab 90 mg/ml prefilled syringe (20 sources) Interleukin-12 Antagonist, Interleukin-23 Antagonist Start: 02-18-2024 End: 06-22-2025 Ustekinumab (Stelara) 90 mg/mL syringe Discontinued 90 mg SC every 6 weeks 1 January 14, 2025 12:39pm June 22, 2025 1:29pm Approval [id number] authorization number [id number] Start: 02-28-2023 End: 02-18-2024 Ustekinumab (Stelara) 90 mg/ mL syringe Discontinued 90 mg SC every 8 weeks 11 16April 11, 2023 12:14pm February 18, 2024 2:14pm Insurance: [employer] [place]. Problems Active Problems Problem Classification Problem Date Documented Da te Episodic/Chronic Abdominal pain (15 sources) Abdominal pain; Translations: [Unspecified abdominal pain] Episodic Influenza (6 sources) Influenza due to Influenza A virus; Translations: [Influenza due to other identified influenza virus with other respiratory manifestations] 02-04-2024 Episodic Joint disorders and dislocations; trauma-related (6 sources) Other meniscus derangements, unspecified lateral meniscus, unspecified knee; Translations: [Other meniscus derangements, unspecified lateral meniscus, unspecified knee] Onset: 05-08-2017 05-08-2017 Chronic Other eye disorders (6 sources) Cyst of right lower eyelid; Translations: [Cysts of right lower eyelid] 08-17-2024 Episodic Other liver diseases (7 sources) Steatosis of liver; Translations: [Fatty (change of) liver, not elsewhere classified] 01-27-2025 Chronic Other liver diseases (1 source) Fatty (change of) liver, not elsewhere classified; Translations: [Fatty (change of) liver, not elsewhere classified] Onset: 02-04-2025 Chronic Other lower respiratory disease (5 sources) Cough; Translations: [Cough] 06-12-2025 Episodic Other screening for suspected conditions (not mental disorders or infectious disease) (1 source) No current problems or disability 05-08-2017 Other upper respiratory disease (1 source) Chronic rhinitis; Translations: [Unspecified sinusitis (chronic)] Chronic Other upper respiratory disease (5 sources) Nasal discharge; Translations: [Other specified disorders of nose and nasal sinuses] 06-12-2025 Episodic Other upper respiratory disease (5 sources) Nasal congestion; Translations: [Nasal congestion] 06-12-2025 Episodic Other upper respiratory infections (4 sources) Maxillary sinusitis; Translations: [Chronic maxillary sinusitis] 07-04-2025 Chronic Other upper respiratory infections (17 sources) Sore throat symptom; Translations: [Acute pharyngitis, unspecified] Episodic Otitis media and related conditions (1 source) Acute left otitis media; Translations: [Otitis media, unspecified, left ear] Episodic Regional enteritis and ulcerative colitis (20 sources) Ulcerative colitis; Translations: [Ulcerative colitis, unspecified, without complications] Onset: 07-27-2025 Chronic Skin and subcutaneous tissue infections (6 sources) Cellulitis of left finger; Translations: [Cellulitis of left index finger] 03-17-2024 Episodic Past or Other Problems Problem Classification Problem Date Documented Da te Episodic/Chronic Acute bronchitis (10 sources) Acute bronchitis; Translations: [Acute bronchitis, unspecified] Onset: 5 12-25-2024 Episodic Biliary tract disease (15 sources) Polyp of gallbladder; Translations: [Cholesterolosis of gallbladder] Onset: 5 01-30-2023 Episodic Gastrointestinal hemorrhage (2 sources) Gastrointestinal hemorrhage; Translations: [Gastrointestinal hemorrhage, unspecified] Onset: 7 04-08-2007 Episodic Hemorrhoids (2 sources) External hemorrhoids; Translations: [Residual hemorrhoidal skin tags] Onset: 7 04-08-2007 Episodic Immunizations and screening for infectious disease (10 sources) Contact with and (suspected) exposure to other viral communicable diseases; Translations: [Contact with or suspected exposure to other viral communicable disease] Onset: 5 12-25-2024 Episodic Other connective tissue disease (6 sources) Synovial cyst of popliteal space [Rivera], left knee; Translations: [Synovial cyst of popliteal space [Rivera], left knee] Onset: 7 05-08-2017 Episodic Other gastrointestinal disorders (2 sources) Diarrhea; Translations: [Diarrhea, unspecified] Onset: 7 04-08-2007 Episodic Other non-traumatic joint disorders (6 sources) Knee pain; Translations: [Pain in left knee] Onset: 7 05-08-2017 Episodic Other non-traumatic joint disorders (1 source) Pain in right knee; Translations: [Pain in right knee] Onset: 5 Episodic Results Test Name Value Interpretation Reference Range Facility CBC W/Diff, Automatedon 07-12 Absolute Lymph 1.57 X10 3/uL Normal 0.83-4.51 [facility] Comment on above: Performed By: #### L 100.0100, L101.9900, L500.4050, L501.6710 #### [facility] [address] [place], [address] Absolute Neut 3.7 X10 3/uL Normal 2.0-7.7 [facility] Comment on above: Performed By: #### L 100.0100, L101.9900, L500.4050, L501.6710 #### [facility] [address] [place], [address] Basophils/100 WBC (Bld) 0.5 % Normal 0-1 [facility] Comment on above: Performed By: #### L 100.0100, L101.9900, L500.4050, L501.6710 #### [facility] [address] [place], [address] Eosinophils/100 WBC (Bld) 5.6 % High 0-5 [facility] Comment on above: Performed By: #### L 100.0100, L101.9900, L500.4050, L501.6710 #### [facility] [address] [place], [address] Erythrocyte distribution width (RBC) [Ratio] 12.0 % Normal 11.6-14.6 [facility] Comment on above: Performed By: #### L 100.0100, L101.9900, L500.4050, L501.6710 #### [facility] [address] [place], [address] Hematocrit (Bld) [Volume fraction] 40.7 % Normal 40-54 [facility] Comment on above: Performed By: #### L 100.0100, L101.9900, L500.4050, L501.6710 #### [facility] [address] [place], [address] Hemoglobin (Bld) [Mass/Vol] 14.2 g/dL Normal 13.0-16.5 [facility] Comment on above: Performed By: #### L 100.0100, L101.9900, L500.4050, L501.6710 #### [facility] [address] [place], [address] IG% 0.500 Normal 0.0-0.9 [facility] Comment on above: Result Comment: IG% - Immature Granulocytes (promyelocytes, myelocytes and metamyelocytes) > 1% indicates that a LEFT SHIFT is Present. Performed By: #### L 100.0100, L101.9900, L500.4050, L501.6710 #### [facility] [address] [place], [address] Lymphocytes/100 WBC (Bld) 25.3 % Normal 19-41 [facility] Comment on above: Performed By: #### L 100.0100, L101.9900, L500.4050, L501.6710 #### [facility] [address] [place], [address] MCH (RBC) [Entitic mass] 31.8 pg Normal 27.0-32.0 [facility] Comment on above: Performed By: #### L 100.0100, L101.9900, L500.4050, L501.6710 #### [facility] [address] [place], [address] MCHC (RBC) [Mass/Vol] 34.9 g/dL Normal 32-36 [facility] Comment on above: Performed By: #### L 100.0100, L101.9900, L500.4050, L501.6710 #### [facility] [address] [place], [address] MCV (RBC) [Entitic vol] 91.1 fL Normal 80-94 [facility] Comment on above: Performed By: #### L 100.0100, L101.9900, L500.4050, L501.6710 #### [facility] [address] [place], [address] Monocytes/100 WBC (Bld) 8.4 % Normal 0-10 [facility] Comment on above: Performed By: #### L 100.0100, L101.9900, L500.4050, L501.6710 #### [facility] [address] [place], [address] Neutrophils/100 WBC (Bld) 59.7 % Normal 47-70 [facility] Comment on above: Performed By: #### L 100.0100, L101.9900, L500.4050, L501.6710 #### [facility] [address] [place], [address] Nucleated RBC (Bld) [#/Vol] 0 10*3/uL Normal 0-5 [facility] Comment on above: Performed By: #### L 100.0100, L101.9900, L500.4050, L501.6710 #### [facility] [address] [place], [address] Platelet mean volume (Bld) [Entitic vol] 10.1 fL Normal 6.2-12.0 [facility] Comment on above: Performed By: #### L 100.0100, L101.9900, L500.4050, L501.6710 #### [facility] [address] [place], [address] Platelets (Bld) [#/Vol] 179 10*3/uL Normal 150-450 [facility] Comment on above: Performed By: #### L 100.0100, L101.9900, L500.4050, L501.6710 #### [facility] [address] [place], [address] RBC (Bld) [#/Vol] 4.47 10*6/uL Low 4.6-6.2 [facility] Comment on above: Performed By: #### L 100.0100, L101.9900, L500.4050, L501.6710 #### [facility] [address] [place], [address] RDW SD 40.5 fl Normal 35.1-43.9 [facility] Comment on above: Performed By: #### L 100.0100, L101.9900, L500.4050, L501.6710 #### [facility] [address] [place], [address] WBC (Bld) [#/Vol] 6.2 10*3/uL Normal 4.4-11.0 [facility] Comment on above: Performed By: #### L 100.0100, L101.9900, L500.4050, L501.6710 #### [facility] [address] [place], [address] CRPon 07-27-2025 C-REACTIVE PROT < 3.00 Normal 0.0-3.0 [facility] Comment on above: Performed By: #### L 100.0100, L101.9900, L500.4050, L501.6710 ####[facility] [address] [place], [address] Comprehensive Metabolic Prof ilon 07-27-2025 Albumin [Mass/Vol] 4.1 g/dL Normal 3.5-5.0 [facility] Comment on above: Performed By: #### L 100.0100, L101.9900, L500.4050, L501.6710 ####[facility] [address] [place], [address] Albumin/Globulin [Mass ratio] 1.9 {ratio} Normal 0.9-2.4 [facility] Comment on above: Performed By: #### L 100.0100, L101.9900, L500.4050, L501.6710 ####[facility] [address] [place], [address] ALK PHOS 76 U/L Normal 40-129 [facility] Comment on above: Performed By: #### L 100.0100, L101.9900, L500.4050, L501.6710 ####[facility] [address] [place], [address] ALT [Catalytic activity/Vol] 20 U/L Normal <=46 [facility] Comment on above: Performed By: #### L 100.0100, L101.9900, L500.4050, L501.6710 ####[facility] [address] [place], [address] AST [Catalytic activity/Vol] 24 U/L Normal <=37 [facility] Comment on above: Result Comment: Hemo lysis present, Results??could be affected. ?? Performed By: #### L 100.0100, L101.9900, L500.4050, L501.6710 ####[facility] [address] [place], [address] Bilirubin [Mass/Vol] 0.51 mg/dL Normal 0.00-1.30 [facility] Comment on above: Performed By: #### L 100.0100, L101.9900, L500.4050, L501.6710 ####[facility] [address] [place], [address] BUN/CRE 13.3 RATIO Normal 10-20 [facility] Comment on above: Performed By: #### L 100.0100, L101.9900, L500.4050, L501.6710 ####[facility] [address] [place], [address] Calcium [Mass/Vol] 9.0 mg/dL Normal 7.6-11.0 [facility] Comment on above: Performed By: #### L 100.0100, L101.9900, L500.4050, L501.6710 ####[facility] [address] [place], [address] Chloride [Moles/Vol] 106 mmol/L Normal 98-108 [facility] Comment on above: Performed By: #### L 100.0100, L101.9900, L500.4050, L501.6710 ####[facility] [address] [place], [address] CO2 [Moles/Vol] 23.0 mmol/L Normal 21.0-32.0 [facility] Comment on above: Performed By: #### L 100.0100, L101.9900, L500.4050, L501.6710 ####[facility] [address] [place], [address] Creatinine [Mass/Vol] 0.93 mg/dL Normal 0.70-1.20 [facility] Comment on above: Performed By: #### L 100.0100, L101.9900, L500.4050, L501.6710 ####[facility] [address] [place], [address] GAP 11 Normal 5-15 [facility] Comment on above: Performed By: #### L 100.0100, L101.9900, L500.4050, L501.6710 ####[facility] [address] [place], [address] GFR/1.73 sq M.predicted among non-blacks MDRD (S/P/Bld) [Vol rate/Area] 98 mL/min/{1.73_m2} Normal >60 [facility] Comment on above: Result Comment: mL/m in/1.73m2 CKD-EPI Creatinine Equation (2020) Performed By: #### L 100.0100, L101.9900, L500.4050, L501.6710 ####[facility] [address] [place], [address] Globulin (S) [Mass/Vol] 2.1 g/dL Low 2.2-4.2 [facility] Comment on above: Performed By: #### L 100.0100, L101.9900, L500.4050, L501.6710 ####[facility] [address] [place], [address] Glucose [Mass/Vol] 106 mg/dL High 70-99 [facility] Comment on above: Performed By: #### L 100.0100, L101.9900, L500.4050, L501.6710 ####[facility] [address] [place], [address] Potassium [Moles/Vol] 4.3 mmol/L Normal 3.3-5.1 [facility] Comment on above: Result Comment: Hemo lysis present, Results??could be affected. ?? Performed By: #### L 100.0100, L101.9900, L500.4050, L501.6710 ####[facility] [address] [place], [address] Sodium [Moles/Vol] 140 mmol/L Normal 133-145 [facility] Comment on above: Performed By: #### L 100.0100, L101.9900, L500.4050, L501.6710 ####[facility] [address] [place], [address] T PROT 6.2 g/dL Normal 5.9-8.4 [facility] Comment on above: Performed By: #### L 100.0100, L101.9900, L500.4050, L501.6710 ####[facility] [address] [place], [address] Urea nitrogen [Mass/Vol] 12 mg/dL Normal 4-19 [facility] Comment on above: Performed By: #### L 100.0100, L101.9900, L500.4050, L501.6710 ####[facility] [address] [place], [address] Erythrocyte Sed Rateon 07-27 SED RATE < 1 Normal 0-20 [facility] Comment on above: Performed By: #### L 100.0100, L101.9900, L500.4050, L501.6710 #### [facility] [address] [place], [address] Gastroenterology Visit Repor ton 07-27-2025 Gastroenterology Visit Report [facility] [address] [place] [address] OFFICE VISIT Date of Service: 07/27/25 MR#: [id number] Acct: [id number] Name: ALLIESAMANTHA DONG Rep #: [id number] : 1970 Provider: RACHELE Ross Age/Sex: 55/M Location: [facility] Status: Signed Intake Vital Signs 03/17/24 09:02 Height 5 ft 11 in Intake Visit Reasons: 6 M FU Chief Complaint: UC Allergies ibuprofen Allergy (Intermediate, Verified 07/04/25 10:14) Other Medications ???Medication ???Instructions ???Recorded ???Confirmed ???Type fluoxetine 20 mg capsule 20 mg PO DAILY 08/30/22 07/27/25 H istory multivitamin 1 tab PO DAILY 08/30/22 07/27/25 H istory omeprazole 20 mg capsule,delayed 20 mg PO QDAY #60 caps 01/27/25 Rx release ustekinumab 90 mg/mL subcutaneous 90 mg subcut Q6W #1 mL 06/22/25 0 07/27/25 Rx syringe (Stelara) PFSH Medical History Cellulitis of left index finger Former smoker CPAP (continuous positive airway pressure) dependence Sleep apnea Abdominal pain Hepatitis Diarrhea LISSETH (obstructive sleep apnea) Fatigue Surgical History History of appendectomy History of tonsillectomy and adenoidectomy Family History Grandmother Colon cancer Sister Chronic ulcerative colitis Brother Chronic ulcerative colitis Social History Smoking Status: Never smoker alcohol intake: current alcohol intake frequency: holidays/special occasions only HPI HPI Chief Complaint: UC Details: SAMANTHA STERLING, is a 55 M who presents to the office today for follow-up. [facility] established in 2021 for UC. Pt previously being treated by Dr. Bateman with Azathioprine and mesalamine enemas PRN. *Started Stelara in 2022 Liver US 2.9.24;1. Focal prominence of the midpole of the right kidney measuring about 2.9 cm could represent dromedary hump. Focal mass cannot be excluded. Correlation with CT scan of the kidneys with and without contrast is 2. 6 mm gallbladder polyp unchanged since prior exam. 3. Fatty infiltration of the liver. EGD/colonoscopy 01.20.24 erythematous duodenopathy Colonoscopy Marcelo score 2 rectum to descending colon. Sigmoid/rectum pathology chronic colitis with cryptitis, crypt abscesses and glandular distortion with prominent lymphoid aggregates, rectum with glandular distortion and expansion of lamina propria Last OV 07.24.24 Noting a flare about one week ago with frequent loose bloody stools. Feels Stelara is workign well for him Stool 07.24.24; calprotectin H 266 OV 01.27.25 Pt continues on Stelara for UC. He has had no flares. He is having a bm once every morning. His stools are solid with no blood in his stool. He is feeling well on the Stelara. ESR, CRP both wnl Calprotectin; 66 Liver elastography; not completed INS would not cover OV 07.27.25 for the past week patient feeling like he is in a flare with increased urgency and mucus/blood in his stool. Patient started on meloxicam about a month ago for his knee arthritis but has noted that it has been triggering to his GI symptoms in the past. Patient was also on an antibiotic for sinus infection recently. He continues with Stelara. ROS Const Constitutional: No fatigue, fever(s) or weight change ENT ENT: No difficulty swallowing Gastro GI: Positive for abdominal pain, bloating, change in bowel habits, diarrhea, excessive flatus and Blood in stool; No belching, change in stool character, coffee ground emesis, constipation, cramping, heartburn, difficulty swallowing, feeling full early, incontinent of stools, Vomiting blood/hematemesis, loose stools, Black,tarry stools, nausea/dyspepsia, pain with swallowing, vomiting or other Musc Musculoskeletal: Positive for Arthritis; No joint pain Skin Skin: Positive for itchy eyes and rash; No yellowing of the eye Psych Psychiatric: No anxiety and No depression Endo Endocrine: No fatigue or weight change Aller/Imm Allergy/Immunologic: Positive for itchy eyes Willi/Lymp Hematologic/Lymphatic: No easy bleeding or easy bruising Exam Const General: cooperative, healthy appearing and comfortable Orientation: alert [facility] Head: normal to inspection Eyes General: appearance normal, both eyes and all related structures Neck Neck: normal visual inspection Chest Chest palpation inspection: normal inspection of the chest Resp Effort Inspection: normal respiratory effort GI Inspection: normal to inspection Assessment and Plan Assessment and Plan (1) Ulcerative colitis: Status: Chronic Qualifiers: Digestive disease complication type: without comp (more content not included)... Normal [facility] Urgent Care Visit Reporton 0 07-04-2025 Urgent Care Visit Report [facility] [address], [address] [place] [address] OFFICE VISIT Date of Service: 07/04/25 MR#: [id number] Acct: [id number] Name: SAMANTHA STERLING Rep #: [id number] : 1970 Provider: OFELIA alvares Age/Sex: 55/M Location: [facility] [place] Status: Signed Intake Vital Signs 03/17/24 09:02 07/04/25 10:14 Height 5 ft 11 in BP 118/80 Position Sitting Respiration 16 Pulse 79 Temp 98.9 F Temp Source Oral Pulse Oximetry (%) 97 Oxygen Delivery Method room air Intake Visit Reasons: SINUS COMPLAINT Chief Complaint: head cold Accompanied by: Self Allergies ibuprofen Allergy (Intermediate, Verified 07/04/25 10:14) Other Medications ???Medication ???Instructions ???Recorded ???Confirmed ???Type fluoxetine 20 mg capsule 20 mg PO DAILY 08/30/22 07/04/25 H istory multivitamin 1 tab PO DAILY 08/30/22 07/04/25 H istory omeprazole 20 mg capsule,delayed 20 mg PO DAILY 08/30/22 07/04/25 H istory release omeprazole 20 mg capsule,delayed 20 mg PO QDAY #60 caps 01/27/25 Rx release ustekinumab 90 mg/mL subcutaneous 90 mg subcut Q6W #1 mL 06/22/25 0 07/04/25 Rx syringe (Stelara) amoxicillin 875 mg-potassium 1 tab PO BID 7 days #14 tabs 07/0407/04/25 Rx clavulanate 125 mg tablet Nurse's Note: Patient has sinus c/o and head cold, lot of sinus pressure. Patient states he feels like if he bends over that his head is going to pop. Patient is also stiff and sore all over. Patient does have green mucus. Patient state the symptoms started Saturday. PFSH Medical History Cellulitis of left index finger Former smoker CPAP (continuous positive airway pressure) dependence Sleep apnea Abdominal pain Hepatitis Diarrhea LISSETH (obstructive sleep apnea) Fatigue Surgical History History of appendectomy History of tonsillectomy and adenoidectomy Family History Grandmother Colon cancer Sister Chronic ulcerative colitis Brother Chronic ulcerative colitis Social History Smoking Status: Never smoker alcohol intake: current alcohol intake frequency: holidays/special occasions only HPI HPI Chief Complaint: head cold Details: SAMANTHA STERLING, is a 55 M who presents to the office today for ongoing symptoms. He was seen in clinic on 06/12/2025 for similar symptoms. Conservative treatment recommended. He acknowledges sinus pressure, headache, soreness, body aches, and green mucus production. He has not taken OTC medications. He states he recently camping. He denies seasonal allergies. ROS Const Constitutional: Positive for body ache and headache(s); No chills, fatigue, fever(s) or change in appetite Eyes Eyes: Positive for discharge (watery); No blurry vision, change in vision, double vision, irritation, vision loss, dry eyes, bulging eyes, floaters, visual disturbances, eye pain, Light sensitivity, spots in vision, tunnel vision or other ENT ENT: Positive for ear pressure, nasal congestion, sinus pressure (Worse when bending over), sinus pain, nasal discharge, headache(s), hoarseness and neck pain; No ear or mastoid pain, ear discharge, tinnitus, dizziness/vertigo, nosebleed/epistaxis, nose pain, post nasal drip, facial pain, dental pain, difficulty swallowing, bad breath, lip swelling, mouth lesions, mouth pain, sore throat, tongue swelling or throat swelling Resp Respiratory: Positive for cough Cough: Yes productive and change in phlegm color (Green); No chest congestion, hemoptysis, pain on inspiration, shortness of breath, pain with cough, stridor or wheezing Cardio Cardiology: No chest pain at rest, chest pain with exertion, shortness of breath, dyspnea on exertion or lightheadedness Gastro GI: No abdominal pain, change in bowel habits, constipation, diarrhea, difficulty swallowing, nausea/dyspepsia or vomiting Genitourinary Male: No burning urination or urinary frequency Musc Musculoskeletal: Positive for neck pain; No joint pain Skin Skin: No rash Neuro Neurology: Positive for headache(s); No visual disturbances Psych Psychiatric: No change in appetite Endo Endocrine: No fatigue Aller/Imm Allergy/Immunologic: No lip swelling, throat swelling, tongue swelling or wheezing Exam Const General: cooperative, healthy appearing, comfortable and no acute distress Orientation: alert, awake and oriented x3 HENMT Head: normal to inspection and normocephalic Ears: hearing grossly normal bilaterally, external ears normal and TM's normal bilaterally Nose: external nose normal, nares normal and no nasal discharge Face and sinus (more content not included)... Normal [facility] Urgent Care Visit Reporton 0 06-12-2025 Urgent Care Visit Report [facility] [address], [address] [place] [address] OFFICE VISIT Date of Service: 06/12/25 MR#: [id number] Acct: [id number] Name: SAMANTHA STERLING Rep #: [id number] : 1970 Provider: OFELIA Cavazos Age/Sex: 54/M Location: [facility] [place] Status: Signed Intake Vital Signs 03/17/24 09:02 06/12/25 08:26 Height 5 ft 11 in BP 120/80 Position Sitting Respiration 16 Pulse 71 Temp 98.5 F Temp Source Oral Pulse Oximetry (%) 98 Oxygen Delivery Method room air Intake Visit Reasons: HEAD COLD, SORE THROAT Chief Complaint: head cold Accompanied by: self Allergies ibuprofen Allergy (Intermediate, Verified 06/12/25 08:31) Other Medications ???Medication ???Instructions ???Recorded ???Confirmed ???Type fluoxetine 20 mg capsule 20 mg PO DAILY 08/30/22 01/27/25 H istory multivitamin 1 tab PO DAILY 08/30/22 01/27/25 H istory omeprazole 20 mg capsule,delayed 20 mg PO DAILY 08/30/22 01/27/25 H istory release ustekinumab 90 mg/mL subcutaneous 90 mg subcut Q6W #1 mL 01/14/25 0 01/27/25 Rx syringe (Darrellara) omeprazole 20 mg capsule,delayed 20 mg PO QDAY #60 caps 01/27/25 Rx release Nurse's Note: Patient has a head cold and sore throat that has been going on 3-4 day. Patient states it started off with a scratchy throat. FOR[facility]LY [facility] Medical History Cellulitis of left index finger Former smoker CPAP (continuous positive airway pressure) dependence Sleep apnea Abdominal pain Hepatitis Diarrhea LISSETH (obstructive sleep apnea) Fatigue Surgical History History of appendectomy History of tonsillectomy and adenoidectomy Family History Grandmother Colon cancer Sister Chronic ulcerative colitis Brother Chronic ulcerative colitis Social History Smoking Status: Never smoker alcohol intake: current alcohol intake frequency: holidays/special occasions only HPI HPI Chief Complaint: head cold Details: SAMANTHA STERLING, is a 54 M who presents to the office today for head cold -sx started couple days ago -tingle in throat, sore throat, headache, feverish- no temp, nasal drainage, cough on occasion- no sputum -tried otc cough syrup- generic for mucinex -no smoker no sob ROS Const Constitutional: Positive for other (ROS negative x6 except what was placed in HPI) Exam Const General: cooperative, comfortable and no acute distress Orientation: alert, awake and oriented x3 [facility] Head: normal to inspection and normocephalic Ears: hearing grossly normal bilaterally, external ears normal and TM's normal bilaterally Nose: external nose normal and other (+ congestion and rhinorrhea- moderate) Face and sinus: normal facial exam, sinuses nontender and face symmetric Mouth: oral mucosae normal, lip normal, tongue normal, oropharynx normal and moist mucous membranes Throat: posterior oropharynx normal, tonsils normal, uvula midline and postnasal drainage (moderate ) Neck Neck: normal visual inspection, full ROM and no lymphadenopathy Resp Effort Inspection: normal respiratory effort, able to speak in complete sentences and symmetric chest movement Auscultation: Bilateral: Clear to Auscultation, Left: Clear to Auscultation and Right: Clear to Auscultation Cardio Rate: regular rate Rhythm: regular rhythm Heart Sounds: S1 normal and S2 normal GI Auscultation: normal bowel sounds Palpation: soft Skin General: no rashes or lesions noted and turgor normal Neuro General: patient alert, patient awake and patient oriented x3 Cognition: normal cognition Speech: speech normal Psych Appearance: grossly normal Mental Status: mental status grossly normal Attitude: cooperative Thought Process: normal Thought Content: normal Coding Level of Care Code Off vis,est,level 3 Diagnoses PND (post-nasal drip) R09.82 Acute cough R05.1 Cough type: acute Nasal congestion R09.81 Rhinorrhea J34.89 Assessment and Plan Assessment and Plan (1) PND (post-nasal drip): Status: Acute Plan: -Warm salt water gargles, warm tea with honey, increase fluids, saline nasal spray 2 squirts each nostril every 2 hours as needed, Flonase nasal spray 1 squirt once a day, cetirizine (Zyrtec) one daily, cool mist humidifier, Tylenol and or ibuprofen as needed for fever or discomfort. -Please follow up with your Primary Care Physician for ongoing chronic problems. If symptoms change or worsen, please present to Emergency Room for further evaluation 1. See visit diagnoses, disposition, and orders. 2. Reviewed and updated medication list; Discussed pr (more content not included)... Normal [facility] Calprotectin, Stoolon [address] 66 ug/g Normal 0-120 [facility] Comment on above: Result Comment: Conc entration Interpretation Follow-Up < 5 - 50 ug/g Normal None >50 -120 ug/g Borderline Re-evaluate in 4-6 weeks >120 ug/g Abnormal Repeat as clinically indicated Performed at: [facility] [id number] Warranty Administrator: Mynor Figueroa MD, Phone: [phone] Performed By: #### L 7000.0700 #### [facility] [place], [address] Calprotectin stoolOrdered By : Denise Pastrana on 01-28-2025 Stool Calprotectin 66 ug/g 0-120 [facility] Comment on above: Concentration Interp retation Follow-Up< 5 - 50 ug/g Normal None>50 -120 ug/g Borderline Re-evaluate in 4-6 weeks >120 ug/g Abnormal Repeat as clinically indicatedPerformed at: - [facility] [id number] Director: Mynor Figueroa MD, Phone: [phone] CRPon 01-27-2025 C-REACTIVE PROT < 3.00 Normal 0.0-3.0 [facility] Comment on above: Performed By: #### L 101.9900, L501.6710 #### [facility] [address] [place], [place], [address] CRP [Mass/Vol]Ordered By: Christina Pastrana on 01-27-2025 C-Reactive Protein Extended Range < 3.00 mg/L 0.0-3.0 [facility] Erythrocyte Sed Rateon 01-27 SED RATE < 1 Normal 0-20 [facility] Comment on above: Performed By: #### L 101.9900, L501.6710 #### [facility] [address] [place], [address] Erythrocyte sedimentation ra teOrdered By: Denise Pastrana on 01-27-2025 ESR (Bld) [Velocity] mm/h 0-20 [facility] Gastroenterology Visit Repor ton 01-27-2025 Gastroenterology Visit Report [facility] [address] [place] [address] OFFICE VISIT Date of Service: 01/27/25 MR#: [id number] Acct: [id number] Name: SAMANTHA STERLING Rep #: [id number] : 1970 Provider: RACHELE Ross Age/Sex: 54/M Location: [facility] Status: Signed Intake Vital Signs 03/17/24 09:02 Height 5 ft 11 in Intake Visit Reasons: 6 M FU Chief Complaint: UC 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: No Is patient in pain?: Yes Allergies ibuprofen Allergy (Intermediate, Verified 01/27/25 07:35) Other Medications ???Medication ???Instructions ???Recorded ???Confirmed ???Type fluoxetine 20 mg capsule 20 mg PO DAILY 08/30/22 01/27/25 H istory multivitamin 1 tab PO DAILY 08/30/22 01/27/25 H istory omeprazole 20 mg capsule,delayed 20 mg PO DAILY 08/30/22 01/27/25 H istory release ustekinumab 90 mg/mL subcutaneous 90 mg subcut Q6W #1 mL 01/14/25 0 01/27/25 Rx syringe (Stelara) omeprazole 20 mg capsule,delayed 20 mg PO QDAY #60 caps 01/27/25 Rx release PFSH Medical History Cellulitis of left index finger Former smoker CPAP (continuous positive airway pressure) dependence Sleep apnea Abdominal pain Hepatitis Diarrhea LISSETH (obstructive sleep apnea) Fatigue Surgical History History of appendectomy History of tonsillectomy and adenoidectomy Family History Grandmother Colon cancer Sister Chronic ulcerative colitis Brother Chronic ulcerative colitis Social History Smoking Status: Never smoker alcohol intake: current alcohol intake frequency: holidays/special occasions only HPI HPI Chief Complaint: UC Details: SAMANTHA STERLING, is a 54 M who presents to the office today for f/u. [facility] established in 2021 for UC. Pt previously being treated by Dr. Bateman with Azathioprine and mesalamine enemas PRN. *Started Stelara in 2022 Liver US 12.20.23;1. Focal prominence of the midpole of the right kidney measuring about 2.9 cm could represent dromedary hump. Focal mass cannot be excluded. Correlation with CT scan of the kidneys with and without contrast is 2. 6 mm gallbladder polyp unchanged since prior exam. 3. Fatty infiltration of the liver. EGD/colonoscopy 01.20.24 erythematous duodenopathy Colonoscopy Marcelo score 2 rectum to descending colon. Sigmoid/rectum pathology chronic colitis with cryptitis, crypt abscesses and glandular distortion with prominent lymphoid aggregates, rectum with glandular distortion and expansion of lamina propria Last OV 07.24.24 Noting a flare about one week ago with frequent loose bloody stools. Feels Stelara is workign well for him Stool 07.24.24; calprotectin H 266 OV 01.27.25 Pt continues on Stelara for UC. He has had no flares. He is having a bm once every morning. His stools are solid with no blood in his stool. He is feeling well on the Stelara. ROS Const Constitutional: Positive for weight change (gain); No fatigue or fever(s) ENT ENT: No difficulty swallowing Gastro GI: No abdominal pain, belching, bloating, change in bowel habits, change in stool character, coffee ground emesis, constipation, cramping, diarrhea, heartburn, difficulty swallowing, feeling full early, excessive flatus, incontinent of stools, Vomiting blood/hematemesis, Blood in stool, loose stools, Black,tarry stools, nausea/dyspepsia, pain with swallowing, vomiting or other Musc Musculoskeletal: Positive for joint pain, joint swelling, stiffness and Arthritis Skin Skin: No yellowing of the eye or itchy eyes Psych Psychiatric: No anxiety and No depression Endo Endocrine: Positive for weight change (gain); No fatigue Aller/Imm Allergy/Immunologic: No itchy eyes Willi/Lymp Hematologic/Lymphatic: No easy bleeding or easy bruising Exam Const General: cooperative and comfortable Nutritional Appearance: average body habitus and well nourished [facility] Head: normal to inspection Ears: hearing grossly normal bilaterally Nose: external nose normal Face and sinus: normal facial exam Eyes General: appearance normal, both eyes and all related structures Neck Neck: normal visual inspection Chest Chest palpation inspection: normal inspection of the chest and normal palpation of entire chest wall Resp Effort Inspection: normal respiratory effort Auscultation: Bilateral: Clear to Auscultation Cardio Palpation: normal PMI Rate: regular rate Rhythm: regular rhythm GI Inspection: normal to inspection Auscultation: normal bowel sounds Percussion: normal to percussion Palpation: no hepatosplenomegaly Skin General: no rashes or lesions noted Leatha (more content not included)... Normal [facility] Knee 4 or More Viewson 01-13 Knee 4 or More Views [facility] [address] [place], [place] [id number] Knee 4 or More Views MR#: [id number] Acct: [id number] Name: SAMANTHA STERLING Rep #: [id number] : 1970 M 54 From: Sanya Perkins MD PCP: Dr. Sanya Delatorre MD Status: REG CLI Study: Knee 4 or More Views Date of Exam: 01/13/25 Exam# [id number] Ordering Dr: Sanya Delatorre MD PROCEDURE: KNEE 4 OR MORE VIEWS REASON FOR EXAM: Pain TECHNIQUE: 4 view(s) of the right knee COMPARISON: None. FINDINGS: No fracture. No suspicious bone lesion. Mild tricompartmental degenerative changes No effusion. Soft tissues are unremarkable. RAD/Knee 4 or More Views IMPRESSION: Mild degenerative changes with no acute osseous abnormality in the right knee Reading Location: [facility] CC: Dr. Sanya Delatorre MD Pad Assembler: Signed Normal [facility] Knee 4 or More Views [facility] [address] [place], [place] [id number] Knee 4 or More Views MR#: [id number] Acct: [id number] Name: SAMANTHA STERLING Rep #: [id number] : 1970 M 54 From: Sanya Perkins MD PCP: Dr. Sanya Delatorre MD Status: REG CLI Study: Knee 4 or More Views Date of Exam: 01/13/25 Exam# [id number] Ordering Dr: Sanya Delatorre MD PROCEDURE: KNEE 4 OR MORE VIEWS REASON FOR EXAM: Pain TECHNIQUE: 4 view(s) of the left knee COMPARISON: None. FINDINGS: No fracture. No suspicious bone lesion. Mild tricompartmental degenerative changes No effusion. Soft tissues are unremarkable. RAD/Knee 4 or More Views IMPRESSION: Mild degenerative changes with no acute osseous abnormality in the left knee Reading Location: [facility] CC: Dr. Sanya Delatorre MD Pad Assembler: Signed Normal [facility] Laboratory - Microbiology an d Antimicrobial susceptibilityOrdered By: Nirmal Rojas on 12-25-2024 SARS-CoV-2 (COVID-19) RNA BHARTI+probe Ql (Unsp spec) Not detected [facility] No Panel InformationOrdered By: Nirmal Rojas on 12-25-2024 Influenza Types A,B Rapid (Clinic) Not detected [facility] Urgent Care Visit Reporton 0 12-25-2024 Urgent Care Visit Report [facility] [address], [address] [place] [address] OFFICE VISIT Date of Service: 12/25/24 MR#: [id number] Acct: [id number] Name: SAMANTHA STERLING Rep #: [id number] : 1970 Provider: RACHELE Bello Age/Sex: 54/M Location: [facility] Status: Signed Intake Vital Signs 03/17/24 09:02 12/25/24 14:09 Height 5 ft 11 in BP 126/72 H Blood Pressure Location Lt brachial Position Sitting Respiration 15 Pulse 88 Pulse Source NIBP Temp 98.1 F Temp Source Oral Pulse Oximetry (%) 96 Oxygen Delivery Method room air Intake Visit Reasons: Cough Chief Complaint: cough, congest, BETH, BA 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: No Is patient in pain?: No Allergies ibuprofen Allergy (Intermediate, Verified 12/25/24 14:15) Other Have you fallen in the past year?: No Nurse's Note: cough, congest, BETH, BA x 2 days. denies fever [employer] Medical History Cellulitis of left index finger Former smoker CPAP (continuous positive airway pressure) dependence Sleep apnea Abdominal pain Hepatitis Diarrhea LISSETH (obstructive sleep apnea) Fatigue Surgical History History of appendectomy History of tonsillectomy and adenoidectomy Family History Grandmother Colon cancer Sister Chronic ulcerative colitis Brother Chronic ulcerative colitis Social History (Reviewed 07/24/24 @ 07:48 by Alejandrina Silva Smoking Status: Never smoker alcohol intake: current alcohol intake frequency: holidays/special occasions only HPI HPI Chief Complaint: cough, congest, BETH, BA Details: SAMANTHA STERLING is a 54 M who presents to the office today for cough, congestion and headache as well as body aches worsening over the past 2 days. Patient does state that he has had a cough for the past 10 days. No nausea, vomiting or diarrhea. No loss of taste or smell. No hemoptysis, shortness of breath or difficulty breathing. No other associated symptoms or alleviating/aggravating factors. ROS Const Constitutional: No other (As above) Exam Const General: cooperative and well developed HENMT Head: normal to inspection and atraumatic Ears: hearing grossly normal bilaterally Nose: nasal discharge clear Face and sinus: normal facial exam Mouth: oral mucosae normal Throat: abnormal tonsil bilaterally hypertrophy 1+ Resp Effort Inspection: normal respiratory effort and no audible wheezes Auscultation: Bilateral: Clear to Auscultation Cardio Palpation: normal PMI Rate: regular rate Rhythm: regular rhythm Neuro General: patient alert and CN's II-XI intact bilaterally Psych Appearance: grossly normal Mental Status: mental status grossly normal Results POC TACOS Covid FluAB PCR POC [facility] Covid PCR Not Detected Last Edit by Kimberli Telles MA on 12/25/24 14:35 POC TACOS FLU NOT DETECTED FLU A B Last Edit by Kimberli Telles MA on 12/25/24 14:35 Coding Level of Care Code Off vis,est,level 3 Diagnoses Acute bronchitis J20.9 Contact with or suspected exposure to other viral communicable disease Z20.828 Assessment and Plan Assessment and Plan (1) Acute bronchitis: Status: Acute Plan: Patient tested negative for COVID and influenza in the office today. Azithromycin and benzonatate as prescribed today. Encouraged to get plenty of rest, drink lots of clear liquids, and use Tylenol or Ibuprofen (unless contraindicated) for fever and comfort. Patient also educated on other symptomatic management techniques. To be seen in 7-10 days if no improvement; sooner if worsening of symptoms. (2) Contact with or suspected exposure to other viral communicable disease: Status: Acute Orders: Orders POC [facility] Covid FLUAB PCR Today Medications: New azithromycin take 500 mg today (day 1), then 250 mg for 4 days (days 2-5) PO 6 tabs 0RF benzonatate 200 mg (2 x 100 mg) PO TID PRN 30 caps 0RF cough Clinical Quality Measures Falls Risk Screening/Assistive Devices Have you fallen in the past year?: No 12/25/24 1454 Date Nirmal Mariaignliz Signature: Date (if applicable) CC: Normal [facility] Urgent Care Visit Reporton 1 Urgent Care Visit Report [facility] [address], [address] [place] [address] OFFICE VISIT Date of Service: 08/17/24 MR#: [id number] Acct: [id number] Name: SAMANTHA STERLING Rep #: [id number] : 1970 Provider: RACHELE Bello Age/Sex: 54/M Location: [facility] [place] Status: Signed Intake Vital Signs 03/17/24 09:02 08/17/24 16:30 Height 5 ft 11 in BP 134/70 H Blood Pressure Location Lt brachial Position Sitting Respiration 16 Pulse 84 Pulse Source NIBP Temp 97.9 F Temp Source Oral Pulse Oximetry (%) 97 Oxygen Delivery Method room air Intake Visit Reasons: R EYE/GROWTH ON EYE LID Chief Complaint: right eye 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: No Is patient in pain?: Yes Allergies ibuprofen Allergy (Intermediate, Verified 08/17/24 16:30) Other Medications ???Medication ???Instructions ???Recorded ???Confirmed ???Type fluoxetine 20 mg capsule 20 mg PO DAILY 08/30/22 07/24/24 History multivitamin 1 tab PO DAILY 08/30/22 07/24/24 History omeprazole 20 mg capsule,delayed 20 mg PO DAILY 08/30/22 07/24/24 History release ustekinumab 90 mg/mL subcutaneous 90 mg subcut Q6W #1 mL 02/18/24 07/24/24 Rx syringe (Stelara) mesalamine 4 gram/60 mL enema 4 g (60 mL) SC QHS #1,680 mL 07/07/24 07/24/24 Rx cephalexin 500 mg capsule 500 mg PO Q12H 10 days #20 caps 08/17/24 08/17/24 Rx Have you fallen in the past year?: No Nurse's Note: right eye red bump x 4-5 days with pain. denies tearing, blurred vision, crusting. tried warm compresses without relief. FORMERLY [facility], [facility] Medical History Cellulitis of left index finger Former smoker CPAP (continuous positive airway pressure) dependence Sleep apnea Abdominal pain Hepatitis Diarrhea LISSETH (obstructive sleep apnea) Fatigue Surgical History History of appendectomy History of tonsillectomy and adenoidectomy Family History Grandmother Colon cancer Sister Chronic ulcerative colitis Brother Chronic ulcerative colitis Social History Smoking Status: Never smoker alcohol intake: current alcohol intake frequency: holidays/special occasions only HPI HPI Chief Complaint: right eye Details: SAMANTHA STERLING, is a 54 M who presents to the office today for complaint of a growth on his right eyelid. Patient states he has noticed a red bump for the past 4 to 5 days with pain. He states he has had no issue with eye pain itself or any change in vision. Patient has had some drainage come from the eyelid. No other associated symptoms or alleviating/aggravating factors. ROS Const Constitutional: No other (As above) Exam Const General: cooperative and healthy appearing [facility] Head: normocephalic and atraumatic Ears: hearing grossly normal bilaterally Face and sinus: face symmetric Eyes General: appearance normal, both eyes and all related structures Visual Singh: normal visual singh by confrontation Alignment and Position: alignment normal Periorbital: periorbital findings normal Eyelids: eyelid abnormality right lower eyelid inflamed cyst external lid Pupils: PERRL Skin General: no rashes or lesions noted Psych Appearance: grossly normal Coding Level of Care Code Off vis,est,level 3 Diagnoses Cyst of right lower eyelid H02.822 Assessment and Plan Assessment and Plan (1) Cyst of right lower eyelid: Status: Acute Plan: Keflex as prescribed today. Patient also advised to use warm compresses 3 times daily. Encouraged to get plenty of rest and use Tylenol or Ibuprofen (unless contraindicated) for comfort. Patient also educated on other symptomatic management techniques. To be seen in 7-10 days if no improvement; sooner if worsening of symptoms. Patient verbalized understanding and agreement with all the above. Medications: New cephalexin 500 mg PO Q12H 20 caps 0RF 10 days Clinical Quality Measures Falls Risk Screening/Assistive Devices Have you fallen in the past year?: No 08/17/24 1733 Date Nirmal Tao Signature: Date (if applicable) CC: Normal [facility] Absolute lymphocyte countOrd ered By: Martell Rothman on 12-05-2023 Lymphocytes Auto (Unsp spec) [#/Vol] 1.87 10*3/uL 0.83-4.51 [facility] Automated lymphocyte count a s percentage of total leukocytesOrdered By: Martell Rothman on 12-05-2023 Lymphocytes/100 WBC Auto (Unsp spec) 28.0 % 19-41 [facility] Basophil percentageOrdered B y: Martell Rothman on 12-05-2023 Basophils/100 WBC (Bld) 0.7 % 0-1 [facility] Bilirubin [Mass/Vol] 0.60 mg/dL 0.20-1.00 [facility] Comment on above: For patients on eltr ombopag therapy, use of Dimension [place] TBIL is not recommended. Chloride [Moles/Vol] 109 mmol/L 98-107 [facility] Eosinophils/100 WBC (Bld) 2.8 % 0-5 [facility] Glucose [Mass/Vol] 107 mg/dL 74-106 [facility] Comment on above: Fasting Glucose resu lt from 100 to 125 mg/dL suggests IMPAIRED HOMEOSTASIS per A.D.A. criteria. Hemoglobin (Bld) [Mass/Vol] 15.0 g/dL 13.0-16.5 [facility] LDH [Catalytic activity/Vol] 257 U/L 87-241 [facility] Comment on above: Slight Hemolysis, Re sult may be falsely increased. Monocytes/100 WBC (Bld) 8.8 % 0-10 [facility] Neutrophils (Bld) [#/Vol] 3.9 10*3/uL 2.0-7.7 [facility] Neutrophils/100 WBC (Bld) 58.5 % 47-70 [facility] Potassium [Moles/Vol] 4.3 mmol/L 3.5-5.1 [facility] Comment on above: Slight Hemolysis, Re sult may be falsely increased. Protein [Mass/Vol] 7.0 g/dL 6.4-8.2 [facility] Sodium [Moles/Vol] 137 mmol/L 136-145 [facility] WBC (Bld) [#/Vol] 6.7 10*3/uL 4.4-11.0 [facility] Determination of erythrocyte mean corpuscular volume (MCV)Ordered By: Martell Rothman on 12-05-2023 MCV (RBC) [Entitic vol] 92.0 fL 80-94 [facility] Erythrocyte distribution wid th ratioOrdered By: Martell Rothman on 12-05-2023 Erythrocyte distribution width (RBC) [Ratio] 12.2 % 11.6-14.6 [facility] Erythrocyte distribution wid th standard deviationOrdered By: Martell Rothman on 12-05-2023 Erythrocyte distribution width (RBC) [Entitic vol] 41.3 fL 35.1-43.9 [facility] Erythrocyte sedimentation ra teOrdered By: Martell Rothman on 12-05-2023 ESR (Bld) [Velocity] mm/h 0-20 [facility] Hematocrit Auto (Bld) [Volum e fraction]Ordered By: Martell Rothman on 12-05-2023 Hematocrit (Bld) [Volume fraction] 44.9 % 40-54 [facility] Immature granulocytes/100 WB C Auto (Bld)Ordered By: Martell Rothman on 12-05-2023 Immature granulocytes/100 WBC (Bld) 1.200 % 0.0-0.9 [facility] Comment on above: IG% - Immature Granu locytes (promyelocytes, myelocytes and metamyelocytes) > 1% indicates that a LEFT SHIFT is Present. Laboratory - Chemistry and C hemistry - challengeOrdered By: Martell Rothman on 12-05-2023 Albumin/Globulin [Mass ratio] 1.3 {ratio} 0.9-2.4 [facility] ALP [Catalytic activity/Vol] 79 U/L 45-117 [facility] ALT [Catalytic activity/Vol] 42 U/L 16-61 [facility] CO2 [Moles/Vol] 27.0 mmol/L 21.0-32.0 [facility] Globulin (S) [Mass/Vol] 3.1 g/dL 2.2-4.2 [facility] Urea nitrogen/Creatinine [Mass ratio] 11.7 mg/mg 10-20 [facility] Laboratory - Hematology and Cell countsOrdered By: Martell Rothman on 12-05-2023 MCH (RBC) [Entitic mass] 30.7 pg 27.0-32.0 [facility] MCHC (RBC) [Mass/Vol] 33.4 g/dL 32-36 [facility] Nucleated RBC/100 WBC (Bld) [Ratio] 0 % 0-5 [facility] Platelets (Bld) [#/Vol] 191 10*3/uL 150-450 [facility] No Panel InformationOrdered By: Martell Rothman on 12-05-2023 C-Reactive Protein Extended Range < 2.90 mg/L 0.0-3.0 [facility] Comment on above: C-Reactive Protein ( CRP) provides useful information for thediagnosis, therapy and monitoring of inflammatory processesand associated diseases. For the evaluation of Relative Riskfor Cardiovascular Disease, a High Sensitivity CRP (HSCRP)should be ordered. Estimated GFR (MDRD) Amer 89 mL/min >60 [facility] Comment on above: GFR Calc Estimated GFR (MDRD) Non-Af Amer 74 mL/min >60 [facility] Comment on above: Non- GFR Calc Miscellaneous Test See comment [facility] Comment on above: Scanned image report available in EMR Platelet mean volume Joey-Ec ker (Bld) [Entitic vol]Ordered By: Martell Rothman on 12-05-2023 Platelet mean volume (Bld) [Entitic vol] 10.1 fL 6.2-12.0 [facility] Qualitative QuantiFERON-TB g old in tube testOrdered By: Martell Rothman on 12-05-2023 M. tuberculosis tuberculin stim IFN-g Ql (Bld) 0 IU/mL . [facility] RBC Auto (Bld) [#/Vol]Ordere d By: Martell Rothman on 12-05-2023 RBC (Bld) [#/Vol] 4.88 10*6/uL 4.6-6.2 [facility] Serum or plasma calcium carlos urement (mass/volume)Ordered By: Martell Rothman on 12-05-2023 Calcium [Mass/Vol] 9.0 mg/dL 8.5-10.1 [facility] Serum or plasma creatinine m easurement (mass/volume)Ordered By: Martell Rothman on 12-05-2023 Creatinine [Mass/Vol] 1.11 mg/dL 0.70-1.30 [facility] Comment on above: The validity of the calculated GFR & GFRAA in patients over 70 years has not been determined. Clinical correlation is essential. Serum or plasma urea nitroge n measurement (mass/volume)Ordered By: Maretll Rothman on 12-05-2023 Urea nitrogen [Mass/Vol] 13 mg/dL 7-18 [facility] Thin prep Papanicolaou smear with manual screeningOrdered By: Martell Rothman on 12-05-2023 Thin prep Papanicolaou smear with manual screening 3.9 g/dL 3.2-5.0 [facility] Thin prep Papanicolaou smear with manual screening 24 U/L 15-37 [facility] Comment on above: Slight Hemolysis, Re sult may be falsely increased. Thin prep Papanicolaou smear with manual screening 1 5-15 [facility] Thin prep Papanicolaou smear with manual screening Comment . [facility] Comment on above: QuantiFERON-TB Gold Plus is a qualitative indirect test forM tuberculosis infection (including disease) and isintended for use in conjunction with risk assessment,radiography, and other medical and diagnostic evaluations.The QuantiFERON-TB Gold Plus result is determined bysubtracting the Nil value from either TB antigen (Ag)value. The Mitogen tube serves as a control for the test. Thin prep Papanicolaou smear with manual screening 0 IU/mL . [facility] Thin prep Papanicolaou smear with manual screening > 10.00 IU/mL . [facility] Thin prep Papanicolaou smear with manual screening Negative Negative [facility] Comment on above: No response to M tub erculosis antigens detected.Infection with M tuberculosis is unlikely, but high riskindividuals should be considered for additional testing(ATS/IDSA/CDC Clinical Practice Guidelines, 2017). Thereference range is an Antigen minus Nil result of <0.35IU/mL.The specimen received for QuantiFERON testing was incubatedby the ordering institution. Specific procedures outlinedin our Directory of Services and in the package insert forthe QuantiFERON Gold (In Tube) test must be followed toenable for proper stimulation of cells for the productionof interferon gamma. Chemiluminescence immunoassaymethodologyPerformed at: [facility] [employer] [facility] [address] [id number] Director: Mathew Vivar PhD, Phone: [phone] Qualitative QuantiFERON-TB g old in tube testOrdered By: Martell Rothman on 03-02-2023 M. tuberculosis tuberculin stim IFN-g Ql (Bld) 0 IU/mL . [facility] Thin prep Papanicolaou smear with manual screeningOrdered By: Martell Rothman on 03-02-2023 Thin prep Papanicolaou smear with manual screening Comment . [facility] Comment on above: QuantiFERON-TB Gold Plus is a qualitative indirect test forM tuberculosis infection (including disease) and isintended for use in conjunction with risk assessment,radiography, and other medical and diagnostic evaluations.The QuantiFERON-TB Gold Plus result is determined bysubtracting the Nil value from either TB antigen (Ag)value. The Mitogen tube serves as a control for the test. Thin prep Papanicolaou smear with manual screening 0.01 IU/mL . [facility] Thin prep Papanicolaou smear with manual screening 0 IU/mL . [facility] Thin prep Papanicolaou smear with manual screening > 10.00 IU/mL . [facility] Thin prep Papanicolaou smear with manual screening Negative Negative [facility] Comment on above: No response to M tub erculosis antigens detected.Infection with M tuberculosis is unlikely, but high riskindividuals should be considered for additional testing(ATS/IDSA/CDC Clinical Practice Guidelines, 2017). Thereference range is an Antigen minus Nil result of <0.35IU/mL.The specimen received for QuantiFERON testing was incubatedby the ordering institution. Specific procedures outlinedin our Directory of Services and in the package insert forthe QuantiFERON Gold (In Tube) test must be followed toenable for proper stimulation of cells for the productionof interferon gamma. Chemiluminescence immunoassaymethodologyPerformed at: [facility] [employer] [facility] [address] [id number] Director: Mathew Vivar PhD, Phone: [phone] Pineda 02-05-2023 [facility] Office Visit (UCWSTR ) ----- THERESA STERLING ([id number]) 1970 M Date Time Provider Department 02/05/23 7:00 PM CATHY MARTINS [facility] During your visit today, we recorded the following information about you: Temperature Pulse Respiration Blood pressure 97.8 degrees 94/minute 18/minute 124/80 Weight 119.3 kg Cathy Martins APRN.CNP 02/05/2023 7:11 PM Signed This note was created using NoteWriter. Subjective [...] lesions. 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 The history is provided by the patient. No venetian blind washer was used. Sinus Problem This is a [...] pulses. Heart sounds: Normal heart sounds. No m (more content not included)... Normal [facility] No Panel InformationOrdered By: Martell Friend on 12-03-2022 CA 19-9 Antigen 19 U/mL 0-35 [facility] Comment on above: [employer] El ectrochemiluminescence Immunoassay(ECLIA)Values obtained with different assay methods or kits cannotbe used interchangeably. Results cannot be interpreted asabsolute evidence of the presence or absence of malignantdisease. CA 19-9 Antigen Serial Monitoring Not Reportable [facility] Intrinsic Factor Antibody 1.0 AU/mL 0.0-1.1 [facility] Comment on above: Performed at: [facility] [address] [id number] Director: Mathew Vivar PhD, Phone: [phone] at: [facility] [id number] Director: Mynor Figueroa MD, Phone: [phone] Serum or plasma carcinoembry onic antigen measurement (mass/volume)Ordered By: Martell Rothman on 12-03-2022 Carcinoembryonic Ag [Mass/Vol] 1.4 ng/mL 0.0-4.7 [facility] Comment on above: Nonsmokers <3.9 Smok ers <5.6[facility] Electrochemiluminescence Immunoassay(ECLIA)Values obtained with different assay methods or kitscannot be used interchangeably. Results cannot beinterpreted as absolute evidence of the presence orabsence of malignant disease. Serum parietal cell antibody assay (units/volume)Ordered By: Martell Rothman on 12-03-2022 Parietal cell Ab Qn (S) 2.1 Units 0.0-20.0 [facility] Comment on above: Negative 0.0 - 20.0 Equivocal 20.1 - 24.9 Positive >24.9Parietal Cell Antibodies are found in 90% of patientswith pernicious anemia and 30% of first degreerelatives with pernicious anemia. No Panel InformationOrdered By: Martell Rothman on 11-21-2022 Giardia Antigen (NAYANA) [facility] Ova and parasitesOrdered By: Martell Rothman on 11-21-2022 Ova and parasites identified LM Nom (Unsp spec) [facility] No Panel InformationOrdered By: Martell Rothman on 11-15-2022 Stool Calprotectin 50 ug/g 0-120 [facility] Comment on above: Concentration Interp retation Follow-Up<16 - 50 ug/g Normal None>50 -120 ug/g Borderline Re-evaluate in 4-6 weeks >120 ug/g Abnormal Repeat as clinically indicatedPerformed at: - [facility] [address] [id number] Director: Mathew Vivar PhD, Phone: [phone] at: [employer] [id number] Director: Mynor Figueroa MD, Phone: [phone] Stool Neutral Fats Normal . [facility] Comment on above: Normal (<60 Droplets /HPF) Stool Pancreatic Elastase > 500 >200 [facility] Comment on above: Result Units: ug Evelin st./g Severe Pancreatic Insufficiency: <100 Moderate Pancreatic Insufficiency: 100 - 200 Normal: >200Performed at: [facility] [id number] Director: Mynor Figueroa MD, Phone: [phone] Qualitative fecal fat or lip idsOrdered By: Martell Friend on 11-15-2022 Fat Ql (Stl) Normal . [facility] Comment on above: Normal (<100 Droplet s/HPF) Atypical perinuclear antineu trophil cytoplasmic antibodies measurementon 11-02-2022 Neutrophil cytoplasmic Ab.perinuclear.atypica l IF (S) [Titer] 1:20 titer Neg:<1:20 [facility] Work Phone: Comment on above: The atypical pANCA p attern has been observed in asignificant percentage of patients with ulcerative colitis,primary sclerosing cholangitis and autoimmune hepatitis. Basophil percentageon 2021 Bilirubin [Mass/Vol] 0.60 mg/dL 0.20-1.00 [facility] Work Phone: Comment on above: For patients on eltr ombopag therapy, use of Dimension [place] TBIL is not recommended. Chloride [Moles/Vol] 108 mmol/L 98-107 [facility] Work Phone: Glucose [Mass/Vol] 102 mg/dL 74-106 [facility] Work Phone: Comment on above: Fasting Glucose resu lt from 100 to 125 mg/dL suggests IMPAIRED HOMEOSTASIS per A.D.A. criteria. Potassium [Moles/Vol] 4.4 mmol/L 3.5-5.1 [facility] Work Phone: Protein [Mass/Vol] 6.9 g/dL 6.4-8.2 [facility] Work Phone: Sodium [Moles/Vol] 139 mmol/L 136-145 [facility] Work Phone: Erythrocyte sedimentation ra beverley 11-02-2022 ESR (Bld) [Velocity] 4 mm/h 0-20 [facility] Work Phone: Interpretation of serum or p lasma protein pattern by immunofixation (narrative resulton 11-02-2022 Protein Fractions Immunofixation Ghassan [Interp] See comment [facility] Work Phone: Comment on above: Result: Not Observed Laboratory - Chemistry and C hemistry - challengeon 11-02-2022 ALP [Catalytic activity/Vol] 95 U/L 45-117 [facility] Work Phone: ALT [Catalytic activity/Vol] 24 U/L 16-61 [facility] Work Phone: CO2 [Moles/Vol] 29.0 mmol/L 21.0-32.0 [facility] Work Phone: Cobalamin (Vitamin B12) [Mass/Vol] 471 pg/mL 211-911 [facility] Work Phone: Globulin (S) [Mass/Vol] 3.2 g/dL 2.2-4.2 [facility] Work Phone: Urea nitrogen/Creatinine [Mass ratio] 10.1 mg/mg 10-20 [facility] Work Phone: No Panel Informationon 11-02 Addendum Document Comment . [facility] Work Phone: Comment on above: Protein electrophore sis scan will follow via computer,mail, or transcript clerk delivery. Endomysial IgA Antibody Negative Negative [facility] Work Phone: Estimated GFR (MDRD) Amer 102 mL/min >60 [facility] Work Phone: Comment on above: GFR Calc Estimated GFR (MDRD) Non-Af Amer 85 mL/min >60 [facility] Work Phone: Comment on above: Non- GFR Calc Immunoglobulin E 9 IU/mL 6-495 [facility] Work Phone: Comment on above: Performed at: [employer] [address] [id number] Director: Mathew Vivar PhD, Phone: [phone] at: [address] [id number] Director: Mynor Figueroa MD, Phone: [phone] Miscellaneous Test See comment [facility] Work Phone: Comment on above: TEST RESULT LIMITSTh iopurine Methyltransferase TPMT Activity 20.9 Units/mL RBC Reference Range: Normal: 15.1 - 26.4 Heterozygous for low TPMT variant: 6.3 - 15.0 Homozygous for low TPMT variant: <6.3Interpretation: The above results can be interpreted as Normal for redblood cell Thiopurine Methyltransferase activity. Forpatients having an intrinsic low level of TPMT, recent RBCtransfusion can variably increase their assayed enzymaticactivity depending on the amount and circulating half-lifeof the transfused red blood cells.This test was developed and its performance characteristicsdetermined by [employer]. It has not been cleared or approvedby the Food and Drug Administration.This case has been reviewed, approved, interpreted andelectronically signed by Carlos Riggins, PhD, [facility].Methodology Enzymatic Endpoint/Liquid Chromatography - Tandem Mass Spectrometry (LC-MS/MS) ____ TESTING PERFORMED AT [employer]. ORIGINAL REPORT ON FILE IN LAB CONTAINS ADDITIONAL TEST SITE INFORMATION. Vitamin D 25-Hydroxy 29.1 ng/mL [facility] Work Phone: Comment on above: Vitamin D 25(OH) Sta tus Range Deficiency <20 ng/mL (50nmol/L) Insufficiency 20 - 30 ng/mL (50 - 75 nmol/L) Sufficiency 30 - 100 ng/mL (75 - 250 nmol/L) Toxicity >100 ng/mL (>250 nmol/L) Serum hwjas-1-kacbrnup measu rement by electrophoresison 11-02-2022 Alpha 1 globulin Elph [Mass/Vol] 0.2 g/dL 0.0-0.4 [facility] Work Phone: Alpha 1 globulin Elph [Mass/Vol] 0.6 g/dL 0.4-1.0 [facility] Work Phone: Serum classic neutrophil cyt oplasmic antibody assay (units/volume)on 11-02-2022 Neutrophil cytoplasmic Ab.classic Qn (S) <1:20 titer Neg:<1:20 [facility] Work Phone: Serum globulin measurement ( mass/volume)on 11-02-2022 Globulin (S) [Mass/Vol] 2.8 g/dL 2.2-3.9 [facility] Work Phone: Serum mitochondria antibody detectionon 11-02-2022 Mitochondria Ab Ql (S) <20.0 Units 0.0-20.0 [facility] Work Phone: Comment on above: Negative 0.0 - 20.0 Equivocal 20.1 - 24.9 Positive >24.9Mitochondrial (M2) Antibodies are found in 90-96% ofpatients with primary biliary cirrhosis. Serum or plasma C reactive p rotein measurement (mass/volume)on 11-02-2022 CRP [Mass/Vol] mg/L 0.0-3.0 [facility] Work Phone: Comment on above: C-Reactive Protein ( CRP) provides useful information for thediagnosis, therapy and monitoring of inflammatory processesand associated diseases. For the evaluation of Relative Riskfor Cardiovascular Disease, a High Sensitivity CRP (HSCRP)should be ordered. Serum or plasma IgA measurem ent (mass/volume)on 11-02-2022 IgA [Mass/Vol] 119 mg/dL 90-386 [facility] Work Phone: Serum or plasma IgG measurem ent (mass/volume)on 11-02-2022 IgG [Mass/Vol] 936 mg/dL 603-1613 [facility] Work Phone: Serum or plasma IgM measurem ent (mass/volume)on 11-02-2022 IgM [Mass/Vol] 105 mg/dL 20-172 [facility] Work Phone: Serum or plasma actin IgG an tibody assay (units/volume)on 11-02-2022 Actin IgG Qn 6 Units 0-19 [facility] Work Phone: Comment on above: Negative 0 - 19 Weak positive 20 - 30 Moderate to strong positive >30 Actin Antibodies are found in 52-85% of patients with autoimmune hepatitis or chronic active hepatitis and in 22% of patients with primary biliary cirrhosis. Serum or plasma albumin carlos urement (mass/volume)on 11-02-2022 Albumin [Mass/Vol] 3.7 g/dL 2.9-4.4 [facility] Work Phone: Serum or plasma albumin/glob ulin mass ratioon 11-02-2022 Albumin/Globulin [Mass ratio] 1.2 {ratio} 0.9-2.4 [facility] Work Phone: Serum or plasma angiotensin converting enzyme measurement (enzymatic activity/volume)on 11-02-2022 Angiotensin converting enzyme [Catalytic activity/Vol] 83 U/L 14-82 [facility] Work Phone: Serum or plasma beta globuli n measurement by electrophoresis (mass/volume)on 11-02-2022 Beta globulin Elph [Mass/Vol] 0.9 g/dL 0.7-1.3 [facility] Work Phone: Serum or plasma calcitriol m easurement (mass/volume)on 11-02-2022 1,25-dihydroxyvitamin D3 [Mass/Vol] 45.2 pg/mL 24.8-81.5 [facility] Work Phone: Comment on above: Performed at: [address] [id number] Director: Mathew Vivar PhD, Phone: [phone] at: - [facility] [id number] Director: Mynor Figueroa MD, Phone: [phone] Serum or plasma calcium carlos urement (mass/volume)on 11-02-2022 Calcium [Mass/Vol] 8.9 mg/dL 8.5-10.1 [facility] Work Phone: Serum or plasma creatinine m easurement (mass/volume)on 11-02-2022 Creatinine [Mass/Vol] 0.99 mg/dL 0.70-1.30 [facility] Work Phone: Comment on above: The validity of the calculated GFR & GFRAA in patients over 70 years has not been determined. Clinical correlation is essential. Serum or plasma ferritin ronald surement (mass/volume)on 11-02-2022 Ferritin [Mass/Vol] 38 ng/mL 26-388 [facility] Work Phone: Serum or plasma folate measu rement (mass/volume)on 11-02-2022 Folate [Mass/Vol] 12.00 ng/mL 3.1-55.4 [facility] Work Phone: Serum or plasma gamma globul in measurement by electrophoresis (mass/volume)on 11-02-2022 Gamma globulin Elph [Mass/Vol] 1.1 g/dL 0.4-1.8 [facility] Work Phone: Serum or plasma immunoelectr ophoresis interpretation (nominal result)on 11-02-2022 Interpretation IEP [Interp] Comment . [facility] Work Phone: Comment on above: No monoclonality det ected. Serum or plasma urea nitroge n measurement (mass/volume)on 11-02-2022 Urea nitrogen [Mass/Vol] 10 mg/dL 7-18 [facility] Work Phone: Serum perinuclear neutrophil cytoplasmic antibody titer by immunofluorescenceon 11-02-2022 Neutrophil cytoplasmic Ab.perinuclear IF (S) [Titer] <1:20 titer Neg:<1:20 [facility] Work Phone: Comment on above: The presence of posi tive fluorescence exhibiting P-ANCA orC-ANCA patterns alone is not specific for the diagnosis ofWegener's Granulomatosis (WG) or microscopic polyangiitis.Decisions about treatment should not be based solely onANCA IFA results. The [employer] Consensusrecommends follow up testing of positive sera with both SC-3 and MPO-ANCA enzyme immunoassays. As many as 5% serumsamples are positive only by EIA. Ref. AM J Clin Kdxekn2313;111:507-513. Serum tissue transglutaminas e IgA antibody assay (units/volume)on 11-02-2022 tTG IgA Qn (S) <2 U/mL 0-3 [facility] Work Phone: Comment on above: Negative 0 - 3 Weak Positive 4 - 10 Positive >10 Tissue Transglutaminase (tTG) has been identified as the endomysial antigen. Studies have demonstr- ated that endomysial IgA antibodies have over 99% specificity for gluten sensitive enteropathy. Thin prep Papanicolaou smear with manual screeningon 11-02-2022 Thin prep Papanicolaou smear with manual screening 18 U/L 15-37 [facility] Work Phone: Thin prep Papanicolaou smear with manual screening 2 5-15 [facility] Work Phone: Thin prep Papanicolaou smear with manual screening 210 U/L 87-241 [facility] Work Phone: Thin prep Papanicolaou smear with manual screening 1.4 0.7-1.7 [facility] Work Phone: Total protein bloodon 2021 Protein [Mass/Vol] 6.5 g/dL 6.0-8.5 [facility] Work Phone: Pineda 05-01-2022 CNOV Office Visit (UCWSTR ) ----- THERESA STERLING ([id number]) 1970 M Date Time Provider Department 05/01/22 7:15 AM AMRITA TOTH [facility] During your visit today, we recorded the following information about you: Temperature Pulse Respiration Blood pressure 96.9 degrees 84/minute 16/minute 124/82 Weight 112 kg Amrita Toth APRN.CRABBER 05/01/2022 7:51 AM Signed CC: Patient presents with: Sore Throat: x [...] symptoms occur. Patient agreeable to treatment plan. Amrita Toth APRN.CRABBER Referring Provider: SELF [200] Allergies As of Date: 05/01/2022 Noted Allergy Reaction IBUPROFEN 09/16/2011 5 - Intolerance Comments: flares up colitis Date Reviewed: 05/01/2022 Reviewed by: Bijal Campos - Fully Assessed Reason for Visit: Sore Throat [200] Cmt: x 1 day Primary Visit Diagnosis:Sore throat [J02.9] Order(s):STREP A MOLECULAR (POC) [3700831] Order #: [id number]. #:[id number] Prescriptions as of 05/01/2022 - azaTHIOprine (IMURAN) 50 mg tablet Take 50 mg by mouth once daily. - mesalamine (ROWASA) 4 gram/60 mL enema 4 g by RECTAL route at bedtime as needed. - OTC PRODUCT Culturale herbal supplement Problem List As Of Date 05/01/2022 Noted Resolved DIARRHEA NOS [R19.7] 04/08/2007 GASTROINTEST HEMORR NOS [K92.2] 04/08/2007 EXT HEMORRHOID W/O COMPL [K64.4] 04/08/2007 Encounter Status:Closed by AMRITA TOTH on 05/01/22 Normal [facility] STREP A MOLECULAR (POC)on Procedural Control Valid [facility] Strep A (POCT) Negative Negative [facility] Microbiology: Culture, Body Fluidon 05-21-2017 body fluid culture Body Fluid CultNO GR OWTH IN 14 DAYS Invalid Interpretation Code [facility] Work Phone: Lab Report: GLUCOSE, SYNOVIA L FLUIDon 05-10-2017 GE use only - for LinkLogic import when terms are not otherwise specified 109 mg/dL Invalid Interpretation Code . [facility] Work Phone: [phone] Microbiology: (P) Culture, B marcello Fluidon 05-10-2017 body fluid culture . Invalid Interpretation Code [facility] Work Phone: [phone] Microbiology: (P) Culture, B marcello Fluidon 05-09-2017 body fluid culture Body Fluid CultNo growth-Final to follow Invalid Interpretation Code [facility] Work Phone: Lab Report: (P) Synovial Flu id RBC, WBC AND Diffon 05-08-2017 Cell Count, Synovial Fluid 0.3280 10 3 uL High 0.000-0.00 0 [facility] Work Phone: [phone] mononuclear cells, synovial fluid as percent of leukocytes 88.5 % Invalid Interpretation Code [facility] Work Phone: [phone] neutrophils, polymorphonuclear as percent of synovial fluid leukocytes 11.5 % Invalid Interpretation Code [facility] Work Phone: [phone] WBC, Fluid 0.3050 10 3UL High 0.000-0.00 2 [facility] Work Phone: [phone] Lab Report: Crystals, Body F luidon 05-08-2017 Pathology comment Will follow Invalid Interpretation Code [facility] Work Phone: [phone] Office Visiton 05-08-2017 Documentation of current medications (procedure) Done Invalid Interpretation Code [facility] Work Phone: [phone] Protein mass conc Done [facility] Work Phone: [phone] Tobacco smoking status NHIS Former smoker [facility] Work Phone: [phone] Tobacco use CPHS Former smoker Invalid Interpretation Code [facility] Work Phone: [phone] Replaced Document: (P) Cryst als, Body Fluidon 05-08-2017 crystals, body fluid SYNOVIAL Invalid Interpretation Code [facility] Work Phone: [phone] Replaced Document: (P) Synov ial Fluid RBC, WBC AND Diffon 05-08-2017 Lymphocytes/100 leukocytes 26 % Invalid Interpretation Code [facility] Work Phone: [phone] Monocytes 48 % Invalid Interpretation Code [facility] Work Phone: [phone] neutrophils as percent of body fluid leukocytes 11 % Invalid Interpretation Code 0-25 [facility] Work Phone: [phone] other Cells 15 % Invalid Interpretation Code [facility] Work Phone: [phone] appearance, body fluid Sl Cl Invalid Interpretation Code CLEAR [facility] Work Phone: [phone] color, synovial fluid Yellow Invalid Interpretation Code Pale Yellow [facility] Work Phone: [phone] GE use only - for LinkLogic import when terms are not otherwise specified May follow Invalid Interpretation Code [facility] Work Phone: [phone] source of sample LEFT KNEE Invalid Interpretation Code [facility] Work Phone: [phone] Replaced Document: Synovial Fluid RBC, WBC AND Diffon 05-08-2017 Erythrocytes (RBC) 0.63804 10*6/uL High 0 O [facility] Work Phone: Clostridium difficile detect ion by polymerase chain reaction C. difficile DNA BHARTI+probe Ql (Unsp spec) [facility] Work Phone: EP Panel Gastrointestinal pathogens panel BHARTI+probe (Stl) [facility] Work Phone: [phone] Stool lactoferrin detection by immunoassay Lactoferrin IA Ql (Stl) [facility] Work Phone: Vital Signs Date Time Vital Sign Value Performing Clinician Facility 07-04-2025 10:14-0400 Body temperature 98.9 [degF] Dr. Sanya Delatorre MD Work Phone: [facility] 07-04-2025 10:14-0400 Diastolic blood pressure 80 mm[Hg] Dr. Sanya Delatorre MD Work Phone: [facility] 07-04-2025 10:14-0400 Heart rate 79 /min Dr. Sanya Delatorre MD Work Phone: [facility] 07-04-2025 10:14-0400 Respiratory rate 16 /min Dr. Sanya Delatorre MD Work Phone: [facility] 07-04-2025 10:14-0400 SaO2% (BldA) [Mass fraction] 97 % Dr. Sanya Delatorre MD Work Phone: [facility] 07-04-2025 10:14-0400 Systolic blood pressure 118 mm[Hg] Dr. Sanya Delatorre MD Work Phone: [facility] 06-12-2025 08:26-0400 Body temperature 98.5 [degF] Dr. Sanya Delatorre MD Work Phone: [facility] 06-12-2025 08:26-0400 Diastolic blood pressure 80 mm[Hg] Dr. Sanya Delatorre MD Work Phone: [facility] 06-12-2025 08:26-0400 Heart rate 71 /min Dr. Sanya Delatorre MD Work Phone: [facility] 06-12-2025 08:26-0400 Respiratory rate 16 /min Dr. Sanya Delatorre MD Work Phone: [facility] 06-12-2025 08:26-0400 SaO2% (BldA) [Mass fraction] 98 % Dr. Sanya Delatorre MD Work Phone: [facility] 06-12-2025 08:26-0400 Systolic blood pressure 120 mm[Hg] Dr. Sanya Delatorre MD Work Phone: [facility] 12-25-2024 14:09-0500 Body temperature 98.1 [degF] Dr. Sanya Delatorre MD Work Phone: [facility] 12-25-2024 14:09-0500 Diastolic blood pressure 72 mm[Hg] Dr. Sanya Delatorre MD Work Phone: [facility] 12-25-2024 14:09-0500 Heart rate 88 /min Dr. Sanya Delatorre MD Work Phone: [phone] [place] [address] 12-25-2024 14:09-0500 Respiratory rate 15 /min Dr. Sanya Delatorre MD Work Phone: [facility] 12-25-2024 14:09-0500 SaO2% (BldA) [Mass fraction] 96 % Dr. Sanya Delatorre MD Work Phone: [facility] 12-25-2024 14:09-0500 Systolic blood pressure 126 mm[Hg] Dr. Sanya Delatorre MD Work Phone: [facility] 01-20-2024 09:15-0400 Body temperature 97.5 [degF] Dr. Sanya Delatorre Work Phone: [facility] 01-20-2024 09:15-0400 Diastolic blood pressure 74 mm[Hg] Dr. Sanya Delatorre Work Phone: [facility] 01-20-2024 09:15-0400 Heart rate 64 /min Dr. Sanya Delatorre Work Phone: [facility] 01-20-2024 09:15-0400 Respiratory rate 16 /min Dr. Sanya Delatorre Work Phone: [facility] 01-20-2024 09:15-0400 SaO2% (BldA) [Mass fraction] 96 % Dr. Sanya Delatorre Work Phone: [facility] 01-20-2024 09:15-0400 Systolic blood pressure 116 mm[Hg] Dr. Sanya Delatorre Work Phone: [facility] 01-20-2024 07:38-0400 Body height 180.[address] Sanya Delatorre Work Phone: [facility] 01-20-2024 07:38-0400 Body mass index (BMI) [Ratio] 35 kg/m2 Dr. Sanya Delatorre Work Phone: [facility] 01-20-2024 07:38-0400 Body weight [address] Sanya Delatorre Work Phone: [facility] 02-05-2023 19:00-0400 Body temperature 97.81 [degF] Cathy Martins BUSINESS PROCESS COORDINATOR.CRABBER Work Phone: [facility] 02-05-2023 19:00-0400 Body weight 119.3 kg Cathy Martins BUSINESS PROCESS COORDINATOR.CRABBER Work Phone: [facility] 02-05-2023 19:00-0400 Diastolic blood pressure 80 mm[Hg] Cathy Martins BUSINESS PROCESS COORDINATOR.CRABBER Work Phone: [facility] 02-05-2023 19:00-0400 Heart rate 94 /min Cathy Martins BUSINESS PROCESS COORDINATOR.CRABBER Work Phone: [facility] 02-05-2023 19:00-0400 Respiratory rate 18 /min Cathy Martins BUSINESS PROCESS COORDINATOR.CRABBER Work Phone: [facility] 02-05-2023 19:00-0400 SaO2% (BldA) [Mass fraction] 96 % Cathy Martins BUSINESS PROCESS COORDINATOR.CRABBER Work Phone: [facility] 02-05-2023 19:00-0400 Systolic blood pressure 124 mm[Hg] Cathy Martins BUSINESS PROCESS COORDINATOR.CRABBER Work Phone: [facility] 11-02-2022 09:08-0500 Body height 182.[address] Sanya Delatorre Work Phone: [facility] Work Phone: 11-02-2022 09:08-0500 Body mass index (BMI) [Ratio] 35.5 kg/m2 Dr. Sanya Delatorre Work Phone: [facility] Work Phone: 11-02-2022 09:08-0500 Body weight 118.[address] Sanya Delatorre Work Phone: [facility] Work Phone: 05-01-2022 07:12-0400 Body temperature 96.91 [degF] Amrita Toth APRN.CRABBER Work Phone: [facility] 05-01-2022 07:12-0400 Body weight 112.04 kg Amrita Toth APRN.CRABBER Work Phone: [facility] 05-01-2022 07:12-0400 Diastolic blood pressure 82 mm[Hg] Amrita Toth APRN.CRABBER Work Phone: [facility] 05-01-2022 07:12-0400 Heart rate 84 /min Amrita Toth APRN.CRABBER Work Phone: [facility] 05-01-2022 07:12-0400 Respiratory rate 16 /min Amrita Toth APRN.CRABBER Work Phone: [facility] 05-01-2022 07:12-0400 SaO2% (BldA) [Mass fraction] 96 % Amrita Toth APRN.CRABBER Work Phone: [facility] 05-01-2022 07:12-0400 Systolic blood pressure 124 mm[Hg] Amrita Toth APRN.CRABBER Work Phone: [facility] 05-08-2017 08:47-0400 BMI (Body Mass Index) 32.07 kg/m2 [facility] Work Phone: 05-08-2017 08:47-0400 Height 180.34 cm Bouchra Alvarado [facility] Work Phone: 05-08-2017 08:47-0400 Weight 104.33 [facility] Work Phone: Encounters Encounter Date Encounter Type Care Provider Facility Start: 07-27-2025 End: 07-27-2025 Patient encounter procedure Denise JEFFREY -[facility] Work Phone: Start: 07-27-2025 End: 07-27-[address] Sanya Delatorre MD Work Phone: -[facility] Start: 07-04-2025 End: 07-04-2025 Patient encounter procedure Huy Krishnamurthy Bethanie LYRIC WRITER-C -[facility] Work Phone: Start: 07-04-2025 End: 07-04-[address] Sanya Delatorre MD Work Phone: [facility] Start: 06-12-2025 End: 06-12-2025 Patient encounter procedure Deborah Cavazos LYRIC WRITER-C -[facility] Work Phone: Start: 06-12-2025 End: 06-12-[address] Sanya Delatorre MD Work Phone: -[facility] Start: 02-17-2025 ambulatory Denise Gutierrezi ty:[facility] Start: 01-28-2025 End: 01-28-[address] Sanya Delatorre MD Work Phone: [facility] Work Phone: Start: 01-28-2025 End: 01-28-2025 Patient encounter procedure Denise JEFFREY -Laboratory, Specimen Work Phone: Start: 01-27-2025 End: 01-27-2025 Patient encounter procedure Denise JEFFREY -[facility] Work Phone: Start: 01-27-2025 End: 01-28-[address] Sanya Delatorre MD Work Phone: [facility] Work Phone: Start: 01-27-2025 End: 01-27-2025 ambulatory Sanya Delatorre Facility:[facility] Start: 01-13-2025 End: 01-13-[address] Sanya Delatorre MD Work Phone: [facility] Work Phone: Start: 01-13-2025 End: 01-13-[address] Sanya Delatorre MD -Radiology, [place] Work Phone: Start: 01-13-2025 End: 01-13-2025 ambulatory Sanya Delatorre Facility:[facility] Start: 12-25-2024 End: 12-25-2024 Patient encounter procedure Niraml Rojas [place] -[facility] Work Phone: Start: 12-25-2024 End: 12-25-2024 ambulatory Sanya Delatorre Facility:[facility] Start: 08-17-2024 End: 08-17-2024 ambulatory Sanya Delatorre Facility:[facility] Start: 01-20-2024 Non-patient / Non-visit Dr. Sanya Delatorre Work Phone: [facility] Start: 01-20-2024 End: 01-20-2024 Admission to same day surgery center Dr. Sanya Delatorre Work Phone: [facility] Work Phone: Start: 01-20-2024 End: 01-20-[address] Sanya Delatorre Work Phone: [facility] Work Phone: Start: 01-14-2024 End: 01-14-2024 ambulatory [facility] Work Phone: Start: 01-14-2024 End: 01-14-[address] [facility]Cat [facility], [facility] Work Phone: Start: 12-20-2023 End: 12-20-2023 ambulatory [facility] Work Phone: Start: 12-20-2023 End: 12-20-2023 Patient encounter procedure [facility] Work Phone: Start: 12-05-2023 End: 12-05-2023 ambulatory [facility] Work Phone: Start: 12-05-2023 End: 12-05-2023 [facility] Start: 03-02-2023 End: 03-02-[address] Sanya Delatorre Work Phone: [facility] Work Phone: Start: 03-02-2023 End: 03-02-[address] [facility] Start: 02-05-2023 End: 02-05-2023 ambulatory SANYA DELATORRE Facility:[facility] Start: 02-05-2023 End: 02-05-2023 Patient encounter procedure Cathy Huseyin BROWNECRABBER Work Phone: [facility] Comment on above: Acute otitis media, left (Primary Dx); Rhinosinusitis; URI, acute Start: 01-30-2023 End: 01-30-[address] Sanya Delatorre Work Phone: [facility] Start: 12-03-2022 End: 12-03-[address] Sanya Delatorre Work Phone: [facility] Start: 11-15-2022 End: 11-15-[address] Sanya Delatorre Work Phone: [facility] Work Phone: Start: 11-15-2022 End: 11-15-[address] Sanya Delatorre Work Phone: [facility], [facility] Start: 11-02-2022 End: 11-02-[address] Sanya Delatorre Work Phone: [facility] Work Phone: Start: 11-02-2022 End: 11-02-[address] Sanya Delatorre Work Phone: [facility] Start: 11-02-2022 End: 11-02-[address] Sanya Delatorre Work Phone: [facility] Start: 05-01-2022 End: 05-01-2022 ambulatory SANYA DELATORRE Facility:[facility] Start: 05-01-2022 End: 05-01-2022 Patient encounter procedure Amrita Toth APRN.CRABBER Work Phone: [facility] Comment on above: Sore throat (Primary Dx) Procedures Date Procedure Procedure Detail Performing Clinician Start: 01-13-2025 X-ray of knee, four or more views Dr[address] Sanya Delatorre MD Work Phone: Start: 01-20-[address] Sanya starks Work Phone: Start: 01-14-2024 CT of abdomen with contrast Start: 12-20-2023 Ultrasonography of abdomen Start: 11-15-[address] Sanya Delatorre Work Phone: Start: 11-15-[address] Sanya Delatorre Work Phone: Start: 05-01-2022 STREP A MOLECULAR (POC) Amrita Toth APRN.CRABBER Work Phone: Start: 05-08-2017 End: 05-08-2017 Drain/inject, joint/bursa Bouchra zuluaga Work Phone: Clostridium difficil e detection Dr. Sanya Delatorre Work Phone: Enteric Bacteriology Dr. Louisa Delatorre Work Phone: Giardia Antigen (NAYANA) Dr. Rachele Delatorre Work Phone: Lactoferrin measurement Dr. Sanya Delatorre Work Phone: [facility] OR parasites identification Dr. Sanya Delatorre Work Phone: Plan of Treatment Date Care Activity Detail Author Start: 01-20-[address] [facility] Start: 11-15-2022 Elastase, pancreatic (el-1), fecal; quantitative [facility] Work Phone: Start: 11-15-2022 Fat [Presence] in Stool [facility] Work Phone: Start: 11-15-[address] [facility] Work Phone: Start: 11-15-2022 [facility] Work Phone: Start: 11-11-2022 DEPRESSION ASSESSMENT DEPRESSION ASSESSMENT [facility] Start: 11-02-2022 Angiotensin converting enzyme [Enzymatic activity/volume] in Serum or Plasma [facility] Work Phone: Start: 11-02-[address] [facility] Work Phone: Start: 11-02-2022 IgE [Units/volume] in Serum or Plasma [facility] Work Phone: Start: 11-02-2022 Mitochondria Ab [Presence] in Serum [facility] Work Phone: Start: 11-02-[address] [facility] Work Phone: Start: 11-02-[address] [facility] Work Phone: Start: 11-02-2022 Smooth muscle Ab [Presence] in Serum [facility] Work Phone: Start: 11-02-2022 Vitamin D, 1,25-dihydroxy measurement [facility] Work Phone: Start: 11-02-2022 [facility] Work Phone: Start: 07-12-2022 Influenza vaccination [facility] Start: 05-31-2017 End: 05-31-2017 Appointment [facility] Work Phone: Start: 05-08-2017 End: 05-08-2017 Appointment Appointment [facility] Work Phone: Start: 05-08-2017 End: 05-08-2017 *BFRW - Body Fluid RBC, WBC & DIFF *BFRW - Body Fluid RBC, WBC & DIFF [facility] Work Phone: Start: 05-08-2017 End: 05-08-2017 Bacteria identified in Body fluid by Culture *CUBF- Culture, Body Fluid [facility] Work Phone: Start: 05-08-2017 End: 05-08-2017 Crystals [type] in Body fluid by Light microscopy *BLANQUITA - Crystals, Body Fluid [facility] Work Phone: Start: 05-08-2017 End: 05-08-2017 Glucose *GLUBF - Glucose, Body Fluid [facility] Work Phone: Start: 05-08-2017 End: 05-08-2017 Glucose mass conc (Body fld) *GLUBF - Glucose, Body Fluid [facility] Work Phone: Start: 05-08-2017 End: 05-08-2017 Mri jnt of lwr extre w/o dye MRI Joint Lower Extremity [facility] Work Phone: Start: 05-08-2017 End: 05-08-2017 Protein in fluid *PROBF - Protein, Body Fluid [facility] Work Phone: Start: 05-08-2017 End: 05-08-2017 X-ray exam, knee, 4 or more X-Ray, Knee [facility] Work Phone: Start: 2016 COLOGUARD (FIT-DNA) COLOGUARD (FIT-DNA) [facility] Start: 2016 Colonoscopy COLONOSCOPY [facility] Start: 2016 COLORECTAL CANCER SCREENING COLORECTAL CANCER SCREENING [facility] Start: [address] COLONOGRAPHY [facility] Start: 2016 DIABETES SCREEN DIABETES SCREEN [facility] Start: 2016 FECAL OCCULT BLOOD FECAL OCCULT BLOOD [facility] Start: 2016 SIGMOIDOSCOPY SIGMOIDOSCOPY [facility] Start: 2006 LIPID SCREEN LIPID SCREEN [facility] Start: 1990 SHINGRIX VACCINE (1 of 2) SHINGRIX VACCINE (1 of 2) [facility] Start: 1990 Urine microalbumin profile DTAP,TDAP,TD (1 - Tdap) [facility] Start: 1989 HEPATITIS C SCREENING HEPATITIS C SCREENING [facility] Start: 1989 HIV SCREENING HIV SCREENING [facility] Start: 1983 Adult depression screening assessment DEPRESSION SCREENING [facility] Start: 1977 PNEUMOCOCCAL (1 - PCV) PNEUMOCOCCAL (1 - PCV) [facility] Start: 1976 COVID-19 VACCINE (#1) COVID-19 VACCINE (#1) [facility] Start: 1971 COVID-19 VACCINE (#1) COVID-19 VACCINE (#1) [facility] Start: 1971 HEPATITIS B (1 of 3 - 3-dose series) HEPATITIS B (1 of 3 - 3-dose series) [facility] Albumin [Moles/volum e] in Serum or Plasma [facility] Work Phone: Albumin/Globulin ratio [facility] Work Phone: Angiotensin converti ng enzyme [Enzymatic activity/volume] in Serum or Plasma [facility] Work Phone: C reactive protein [Mass/volume] in Serum or Plasma [facility] CBC W Auto Different ial panel - Blood [facility] Clostridioides diffi cile DNA [Presence] in Unspecified specimen by BHARTI with probe detection [facility] Work Phone: Comprehensive metabo lic 2000 panel - Serum or Plasma [facility] Elastase, pancreatic (el-1), fecal; quantitative [facility] Work Phone: Electrophoresis: [id number] [facility] Work Phone: Electrophoresis: candie ma globulin [facility] Work Phone: Erythrocyte sediment ation rate [facility] Fat [Mass/mass] in Stool [facility] Work Phone: Fat [Presence] in Stool [facility] Work Phone: Fat.neutral [Presenc e] in Stool [facility] Work Phone: Gastrointestinal pat hogens panel - Stool by BHARTI with probe detection [facility] Work Phone: Globulin measurement [facility] Work Phone: IgA [Mass/volume] in Serum or Plasma [facility] Work Phone: IgE [Units/volume] i n Serum or Plasma [facility] Work Phone: IgG [Mass/volume] in Serum or Plasma [facility] Work Phone: IgM [Mass/volume] in Serum or Plasma [facility] Work Phone: Lactoferrin [Presenc e] in Stool by Immunoassay [facility] Work Phone: Liver stiffness by US.transient elastography [facility] Measurement of immunoglobulin A in serum specimen [facility] Work Phone: Mitochondria Ab [Pre sence] in Serum [facility] Work Phone: Neutrophil cytoplasm ic Ab.classic [Units/volume] in Serum [facility] Work Phone: Ova and parasites identified in Unspecified specimen by Light microscopy [facility] Work Phone: P-ANCA measurement [facility] Work Phone: Patient referral [facility] Work Phone: Procedure [facility] Work Phone: Procedure [facility] Protein electrophore sis panel - Serum or Plasma [facility] Work Phone: Protein measurement [facility] Work Phone: Protein measurement [facility] Serum protein electrophoresis [facility] Work Phone: Smooth muscle Ab [Presence] in Serum [facility] Work Phone: Tissue transglutamin ase IgA Ab [Units/volume] in Serum [facility] Work Phone: Ultrasound elastography [facility] Work Phone: US Abdomen [facility] Work Phone: Vitamin D, 1,25-dihy droxy measurement [facility] Work Phone: Payers Date Payer Category Payer Self-pay [id number] 2024 Unknown [id number] 2021 Unknown DEDRA NAZARIO ACCE SS PPO [id number] 2021-Present [phone] [id number] [place] [address] PPO [id number] 2021 Unknown [id number] 2016 Unknown [facility] [id number] 19ee Unknown [facility] P[employer]AN [phone] [id number] Unknown [id number] Unknown [id number] Unknown [id number] Unknown [id number] Unknown [id number] Unknown [id number] Unknown [id number] Unknown [id number] Unknown [id number] Unknown [id number] Unknown [id number] Social History Date Type Detail Facility Start: [facility]05[facility]23 [facility] Work Phone: End: 11-11-2002 History of tobacco use Current smoker [facility] Work Phone: End: 11-11-2002 History of tobacco use Cigarette Smoker [facility] Work Phone: Start: 05-01-2022 End: 02-05-2023 Alcohol intake Current drinker of alcohol (finding) [facility] Start: 04-29-2018 History SDOH Alcohol Comment 2 beers once a month [facility] Start: 1970 Sex Assigned At Not on file [facility] Start: 04-21-2022 End: 05-01-2022 Exposure to SARS-CoV-2 (event) Not sure [facility] Work Phone: Start: 11-02-2022 End: 01-16-2024 Tobacco smoking status NHIS Unknown if ever smoked [facility] Start: 1970 Sex Assigned At Male W [facility] Start: 02-05-2023 Cigarettes smoked current (pack per day) - Reported 0.5 [facility] Start: 02-05-2023 Tobacco use and exposure Smokeless tobacco non-user [facility] Work Phone: Start: 03-17-2024 [facility] ([facility] Start: 01-26-2025 End: 02-05-2025 Sex Male (finding) [facility] Goals Date Patient Goal Desired Activity /State Mental Status Date Assessment Result Facility 01-20-2024 Cognitive function Level Of Cons ciousness Lethargic [facility] Work Phone: 01-20-2024 Cognitive function Patient Thi triana Person;Place;Time [facility] Work Phone: Clinical Notes 05-01-2022 to 06-12-2025 Note Date & Type Note Facility 06-12-2025 Evaluation note Diagnosis Onset Date Resolution Cough acute June 12 8:26am Nasal congestion acute June 122024 8:26am PND (post-nasal drip) acute Jun 8:26am Rhinorrhea acute June 12 8:26am Maxillary sinusitis acute Augus t 2024 10:05am [facility] [employer] Work Phone: 1(324) 461-471708-02-2025 Evaluation note* Diagnosis Onset Date Resolution Status Admit Date Cough acute June 12 8:26am Nasal congestion acute June 122024 8:26am PND (post-nasal drip) acute Jun 8:26am Rhinorrhea acute June 12 8:26am Maxillary sinusitis acute Augus t 2024 10:05am Ulcerative colitis chronic Septem shraddha 2024 7:22am [facility] [employer] Work Phone: 1(566) 779-695003-05-2025 Radiology Diagnostic study note [facility] Imaging Services [address] [place] [address] Knee 4 or More Views MR#: [id number] Acct: [id number] Name: SAMANTHA STERLING Rep #: [id number] : 1970 M 54 From: Louisa Perkins MD PCP: Dr. Sanya Delatorre MD Status: REG C CHRISTINA Study:Knee 4 or More Views Date of Exam: 01/13/25 Exam# [id number] Ordering Dr: Sanya Delatorre MD PROCEDURE: KNEE 4 OR MORE VIEWS REASON FOR EXAM: Pain TECHNIQUE: 4 view(s) of the right knee COMPARISON: None. FINDINGS: No fracture. No suspicious bone lesion. Mild tricompartmental degenerative changes No effusion. Soft tissues are unremarkable. RAD/Knee 4 or More Views IMPRESSION: Mild degenerative changes with no acute osseous abnormality in the right knee Reading Location: [facility] CC: Dr. Sanya Delatorre MD ~ Pad Assembler: Signed [facility]03-05-2025 Radiology Diagnostic study note [facility] Imaging Services [address] [place] [place], [place] [address] Knee 4 or More Views MR#: [id number] Acct: [id number] Name: SAMANTHA STERLING Rep #: [id number] : 1970 M 54 From: Louisa Perkins MD PCP: Dr. Sanya Delatorre MD Status: REG Carlos Manuel CHRISTINA Study:Knee 4 or More Views Date of Exam: 01/13/25 Exam# [id number] Ordering Dr: Sanya Delatorre MD PROCEDURE: KNEE 4 OR MORE VIEWS REASON FOR EXAM: Pain TECHNIQUE: 4 view(s) of the left knee COMPARISON: None. FINDINGS: No fracture. No suspicious bone lesion. Mild tricompartmental degenerative changes No effusion. Soft tissues are unremarkable. RAD/Knee 4 or More Views IMPRESSION: Mild degenerative changes with no acute osseous abnormality in the left knee Reading Location: [facility] CC: Dr. Sanya Delatorre MD ~ Pad Assembler: Signed [facility]02-14-2025 Evaluation note* Diagnosis Onset Date Resolution Status Admit Date Acute bronchitis acute December 25, 2024 2:07pm Contact with or suspected exposure to other viral communicable disease acute December 252024 2:07pm [facility] Work Phone: 1(170) 598-793702-14-2025 Evaluation note* Diagnosis Onset Date Resolution Status Admit Date Acute bronchitis acute December 25, 2024 2:07pm Contact with or suspected exposure to other viral communicable disease acute December 252024 2:07pm Fatty liver acute January 27, 2 025 7:19am Gallbladder polyp chronic January 092024 7:19am Ulcerative colitis chronic January 27, 2025 7:19am [facility] Work Phone: 1(777) 807-829303-11-2024 History and physical note Author Martell Friend [facility] January 20, 2024 8:00am Note Date/Time January 20, 2024 8:0 0am [facility] Medical Records Department [address] [place] [address] History & Physical Exam 01/20/24 0800 MR#: [id number] Acct: [id number] Name: SAMANTHA STERLING Rep #:[id number] : 1970 53 From: Martell Rothman DO PCP: Dr. Sanya Delatorre MD Status:REG S [place] Location: [place] [address] History and Physical Date of Admission: 01/20/24 SAMANTHA STERLING, is a 52 M who presents to the office today for a follow up visit regarding ulcerative colitis. GI Dr. Bateman established previously who notes UC symptoms can include diarrhea and rectal bleeding with flares. Managed with azathioprine 100mg QD and mesalamine enema PRN. History of suppository use. Colonoscopy with Dr. Bateman 07.05.14 finding rectal friability with exudate and ulceration and persisted for 22cm. Remaining exam without abnormality. Colonoscopy 01.01.[address] Bateman with normal mucosa noted. Pathology without changes. *I established 11.02.22 with previously diagnosed UC approximately 7 years prior. Symptoms at this time include diffuse abdominal discomfort present on a daily basis with no aggravating or alleviating factors; stools are lose 1-2 times a day without blood/mucus at this time. Flares do occur and he has had approximately 4 this year: symptoms include increased stooling frequency with blood/mucous and significant urgency, abdominal pain does not vary. ? Biochemical workup celiac, ASM, AMA, GAME, CRP, ESR, LDH, ferritin, JESSIE, Vit B12, Vit D1,25, Vit D25, folate, CMP, IBD profile without pertinent abnormality. GLORIA H83, p-ANCA H1:20 TPMT activity 20.9 (normal); TMPT genotype 1/1, wild (normal) TPMT activity withresidual risk of mutation not detected on assay. Stool lactoferrin, calprotectin, elastase, C.Difficile, EP, fat, O/P, giardia WNL US RUQ and elastography 11.15.22 hepatic measurement 15.4 with stiffness 7.3kPa F1; 5mm gallbladder polyp. Biochemical workup, VM 11.19.22 ? Biochemical workup CEA, CA19-9, intrinsic factor, anti- parietal cell ab. Stool studies fecal fat, calprotectin WNL OV 01.30.23 He continues to have diarrhea 10+/day, abdominal pain, blood in stooland bloating. He has been using previously prescribed mesalamine enemas are helpful with diarrhea consistency and frequency, abdominal pain and blood. Azathioprine 100mg continues. Current weight 260lbs. ROS Const Constitutional: No body ache, chills, fatigue, fever(s) or headache(s) ENT ENT: Positive for sore throat; No ear or mastoid pain, nasal congestion, sinus pressure, sinus pain, nasal discharge, headache(s), difficulty swallowing, mouth lesions, tongue swelling orthroat swelling Resp Respiratory: No cough Gastro GI: No difficulty swallowing Skin Skin: No rash Neuro Neurology: No headache(s) Endo Endocrine: No fatigue Aller/Imm Allergy/Immunologic: No throat swelling or tongue swelling Exam Const General: cooperative HENMT Head: normal to inspection Ears: TM's normal bilaterally Nose: external nose normal Face and sinus: normal facial exam Mouth: oral mucosae normal Teeth and gingiva: dentition normal Throat: posterior oropharynx abnormal cobblestoning Resp Auscultation: Bilateral: Clear to Auscultation Cardio Rate: regular rate Rhythm: regular rhythm Heart Sounds: S1 normal and S2 normal Quality Reporting Tobacco Screening ([facility] 138) Smoking Status: Never smoker Assessment and Plan Assessment and Plan (1) Ulcerative colitis: Status: Chronic Qualifiers: Ulcerative colitis location: ulcerative rectosigmoiditis Digestive disease complication type: without complication Qualified Code(s): 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 He is on 100 mg of Imuran per day. His weight is 226 pounds. We will increased his Imuran to 200 mg a day and we will check his amylase, lipase, TPMT enzymatic activity, and his liver enzymes. He was still getting intermittent diarrhea and intermittent lower GI bleeding. We started Sterlara and he is doing very well without any complains. He has received three doses of the medication. He will need antibody and drug levels after next injeciton. (2) Gallbladder polyp: Status: Chronic Plan: He will need repeat imaging on next visit to monitor the size of the polyp. (3) Abdominal pain: Status: Inactive Qualifiers: Abdominal location: left lower quadrant Qualified Code(s): R10.32 - Left lower quadrant pain Plan: I am assuming that his abdominal pain is associated with his ulcerative colitis. Also could be associated with irritable bowel syndrome. As far as he knows he does not have any extraintestinal manifestations of ulcerative colitis. ultrasound of his liver and a FibroScan displayed a low risk plan of 15 cm and Medavire score of 7.5. Coding Level of Care Code Off vis,est,level 4 Diagnoses Ulcerative rectosigmoiditis without complication K51.30 Ulcerative colitis location: ulcerative rectosigmoiditis Digestive disease complication type: without complication Gallbladder polyp K82.4 Left lower quadrant abdominal pain R10.32 Abdominal location: left lower quadrant I have examined the patient and the H&P has been reviewed. There are no clinicalchanges since date of exam. 01/20/24 0800 <Electronically signed by Martell Rothman DO> Cosigner Signature (if applicable): CC: Dr. Sanya Delatorre MD; Martell Rothman DO~ Signed [facility] Work Phone: 1(633) 321-599803-11-2024 Procedure [facility] 01-20-2024 Procedure [facility]03-11-[address] [facility]03-11-2024 Procedure [facility] 02-05-2023 NoteHNO ID: [id number] Author: Cathy Martins APRN.ALAYNA Service: ? Author Type: Nurse Practitioner Type: Progress Notes Filed: 02/05/2023 7:11 PM Note Text: This note was created using Kerry. Subjective Theresa Sterling is a 52 year [...] lesions. 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 The history is provided by the patient. No venetian blind washer was used. Sinus Problem This is a [...] is flat. There is (more content not included)...[facility]03-28-2023 History of Present illness Narrative* Cathy Martins APRN.[facility] - 02/05/2023 7:04 PM EDT This note was created using NoteWriter. Subjective [...] lesions. 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 The history is provided by the patient. No venetian blind washer was used. Sinus Problem This is a new problem. The current episode started 1 to 4 weeks ago. The problem occurs constantly.The problem has been gradually worsening. Associated symptoms [...] Supportive care with fluids and rest Cathy Martins APRN.CNP [facility] NoteHNO ID: [id number] Author: Amrita Toth APRN.CNP Service: ? Author Type: Nurse Practitioner Type: [...] symptoms occur. Patient agreeable to treatment plan. Amrita Toth APRN.[facility]06-21-2022 History of Present illness Narrative* Amrita Toth APRN.[facility] - 05/01/2022 7:29 AM EDT CC: Patient presents with: Sore Throat: x 1 day HPI: Theresa Sterling is a 51 year old male who presents to the office with complaint of sore throat forthe past day. Symptoms are worsening Associated symptoms [...] symptoms occur. Patient agreeable to treatment plan. Amrita Toth APRN.ALAYNA [facility]* Diagnosis Sore throat- Primary Acute pharyngitis documented in this encounter [facility] note* Diagnosis Onset Date Resolution Status Abdominal pain acute Ulcerative colitis [facility] Work Phone: Evaluation note* Diagnosis Acute otitis media, left- Primary Unspecified otitis media Rhinosinusitis Unspecified sinusitis (chronic) URI, acute Acute upper respiratory infections of unspecified site documented in this encounter [facility] note* Diagnosis Onset Date Resolution Status Gallbladder polyp chronic Ulcerative colitis chronic [facility] Work Phone: Evaluation noteNo assessment information available [facility] Work Phone: Reason for referral (narrative)No [facility] for [facility] Work Phone: Chief Complaint and Reason for Visit Chief Complaint Consult E ORDERS Reason for Visit Abdominal pain Ulcerative colitis Chief Complaint Consult E ORDERS ABD PAIN Reason for Visit Abdominal pain Ulcerative colitis Chief Complaint ABD PAIN EORDER 3 MO FU E ORDER Reason for Visit Gallbladder polyp Ulcerative colitis Chief Complaint INT LABS Chief Complaint INT LABS GALLBLADDER POLYP EVAL Chief Complaint INT LABS GALLBLADDER POLYP EVAL Abnormal findings on diagnostic imaging of other s Chief Complaint Admit Date Cough December 25, 2024 2:07pm KNEE PAIN January 13, 2025 3:27 pm Reason for Visit Admit Date Acute bronchitis December 25, 2024 2:07pm Contact with or suspected ex posure to other viral communicable disease December 25, 2024 2:07pm Chief Complaint Admit Date Cough December 25, 2024 2:07pm KNEE PAIN January 13, 2025 3:27 pm 6 M FU January 27, 2025 7:1 9am Reason for Visit Admit Date Acute bronchitis December 25, 2024 2:07pm Contact with or suspected ex posure to other viral communicable disease December 25, 2024 2:07pm Fatty liver January 27, 2025 7:1 9am Gallbladder polyp January 27, 2025 7:1 9am Ulcerative colitis January 27, 2025 7:1 9am Chief Complaint Admit Date HEAD COLD, SORE THROAT June 12, 2025 8:26am Chief Complaint Admit Date HEAD COLD, SORE THROAT June 12, 2025 8:26am SINUS COMPLAINT July 04, 2025 10 :05am Reason for Visit Admit Date Cough June 12, 2025 8:2 6am Nasal congestion June 12, 2025 8:2 6am PND (post-nasal drip) June 12, 2025 8 :26am Rhinorrhea June 12, 2025 8:2 6am Maxillary sinusitis July 04, 2025 10 :05am Chief Complaint Admit Date HEAD COLD, SORE THROAT June 12, 2025 8:26am SINUS COMPLAINT July 04, 2025 10 :05am 6 M FU July 27, 2025 7:22am Reason for Visit Admit Date Cough June 12, 2025 8:2 6am Nasal congestion June 12, 2025 8:2 6am PND (post-nasal drip) June 12, 2025 8 :26am Rhinorrhea June 12, 2025 8:2 6am Maxillary sinusitis July 04, 2025 10 :05am Ulcerative colitis July 27, 2025 7:22am Family History No Family History Records Found Relationship Condition Age at Onset Recorded Date/T samy grandmother Malignant neoplasm of colon Unknown sister Chronic ulcerative colitis Unknown brother Chronic ulcerative colitis Unknown Summary Purpose Advance Directives No Advanced Directives Records Found Advance Directive Response Recorded Date/ Time Living Will No January 16, 2024 8:25am Power of Mechanical Reliability Engineer No January 15 8:25am Advance Directive Response Recorded Date/ Time Living Will No January 16, 2024 9:25am Power of Mechanical Reliability Engineer No January 15 9:25am Advance Directive Response Recorded Date/ Time Living Will No March 17, 2024 9: 02am Do you have a Healthcare Power of Mechanical Reliability Engineer? No March 17, 2024 9:02am Additional Source Comments Source Comments (unrecognize d section and content) In the event this informatio n is protected by the Federal Confidentiality of Alcohol and Drug Abuse Patient Records regulations: The Federal rules restrict any use of the information to criminally investigate or prosecute any alcohol or drug abuse patient.[facility] the event this information is protected by the Federal Confidentiality of Alcohol and Drug Abuse Patient Records regulations: The Federal rules restrict any use of the information to criminally investigate or prosecute any alcohol or drug abuse patient.[facility] Reason for Visit (unrecogniz ed section and content) Reason Comments Sore Throat x 1 day Reason Comments Head Congestion cough,chest congesti on, sore throat and left ear pain x 10-14 days Care Teams (unrecognized sec tion and content) Pharmacy Sales Representative Relationship Specialty Start Date End Date Sanya Delatorre MD PCP - General Family Practice 09/16/11 Pharmacy Sales Representative Relationship Specialty Start Date End Date Sanya Delaotrre MD PCP - General Family Medicine 09/16/11 Team Status: Active Member Role Status Dates Dr. Sanya Delatorre MD Family Provider Active Dr. Sanya Delatorre MD Primary Care Provider Active Team Status: Inactive Member Role Status Dates Dr. Sanya Delatorre MD Primary Care Provider, Referring Provider Active Dr. Martell Rothman DO Attending Provider Active Team Status: Inactive Member Role Status Dates Dr. Sanya Delatorre MD Primary Care Provider Active Dr. Martell Rothman DO Attending Provider Active Team Status: Inactive Member Role Status Dates Dr. Sanya Delatorre MD Primary Care Provider Active Dr. Martell Rothman DO Attending Provider, Referring Provider Active Team Status: Inactive Member Role Status Dates Dr. Sanya Delatorre MD Primary Care Provi collette, Attending Provider, Referring Provider Active Dr. Martell Rothman DO Other Provider Active Team Status: Active Member Role Status Dates Dr. Sanya Delatorre MD Primary Care Provider, Referring Provider Active Dr. Martell Rothman DO Attending Provider, Other Prov ider Active Team Status: Active Member Role Status Dates Dr. Sanya Delatorre MD Primary Care Provider Active Team Status: Inactive Member Role Status Dates Dr. Sanya Delatorre MD Primary Care Provider Active Start: December 25, 2024 End: December 25, 2024 Dr. Sanya Delatorre MD Referring Provider Active Start: December 25, 2024 End: December 25, 2024 Nirmal JFEFREY, PA Attending Provider Active Sta rt: December 25, 2024 End: December 25, 2024 Team Status: Inactive Member Role Status Dates Dr. Sanya Delatorre MD Primary Care Provider Active Start: January 13, 2025 End: January 13, 2025 Dr. Sanya Delatorre MD Attending Provider Active Start: January 13, 2025 End: January 13, 2025 Dr. Sanya Delatorre MD Referring Provider Active Start: January 13, 2025 End: January 13, 2025 Team Status: Inactive Member Role Status Dates Dr. Sanya Delatorre MD Primary Care Provider Active Start: January 27, 2025 End: January 27, 2025 Dr. Sanya Delatorre MD Referring Provider Active Start: January 27, 2025 End: January 27, 2025 RACHELE Ross Attending Provider Active Start: January 27, 2025 End: January 27, 2025 Team Status: Inactive Member Role Status Dates Dr. Sanya Delatorre MD Primary Care Provider Active Start: January 27, 2025 End: January 27, 2025 RACHELE Ross Attending Provider Active Start: January 27, 2025 End: January 27, 2025 Denise Pastrana PA Referring Provider Active Start: January 27, 2025 End: January 27, 2025 Team Status: Active Member Role Status Dates Dr. Sanya Delatorre MD Primary Care Provider Active Start: January 28, 2025 Denise Pastrana PA Attending Provider Active Start: January 28, 2025 Denise Pastrana PA Referring Provider Active Start: January 28, 2025 Team Status: Inactive Member Role Status Dates Dr. Sanya Delatorre MD Primary Care Provider Active Start: January 28, 2025 End: January 28, 2025 Denise Pastrana PA Attending Provider Active Start: January 28, 2025 End: January 28, 2025 RACHELE Ross Referring Provider Active Start: January 28, 2025 End: January 28, 2025 Team Status: Active Member Role/Relationship Status Dates Dr. Sanya Delatorre MD Primary Care Provider Active Team Status: Inactive Member Role/Relationship Status Dates Dr. Sanya Delatorre MD Primary Care Provider Active Start: June 12, 2025 End: June 12, 2025 Dr. Sanya Delatorre MD Referring Provider Active Start: June 12, 2025 End: June 12, 2025 OFELIA Willett Attending Provider Active Start: June 12, 2025 End: June 12, 2025 Team Status: Inactive Member Role/Relationship Status Dates Dr. Sanya Delatorre MD Primary Care Provider Active Start: July 04, 2025 End: July 04, 2025 Dr. Sanya Delatorre MD Referring Provider Active Start: July 04, 2025 End: July 04, 2025 Huy Kovacs LYRIC WRITER, LYRIC WRITER-C Attending Provider Active S tart: July 04, 2025 End: July 04, 2025 Team Status: Inactive Member Role/Relationship Status Dates Dr. Sanya Delatorre MD Primary Care Provider Active Start: July 27, 2025 End: July 27, 2025 Dr. Sanya Delatorre MD Referring Provider Active Start: July 27, 2025 End: July 27, 2025 RACHELE Ross Attending Provider Active Start: July 27, 2025 End: July 27, 2025 Goals (unrecognized section and content) Goals may be documented in a n alternate sectionGoals may be documented in an alternate sectionGoals may be documented in an alternate sectionGoals may be documented in an alternate sectionGoals may be documented in an alternate sectionGoals may be documented in an alternate sectionGoals may be documented in an alternate sectionGoals may be documented in an alternate sectionGoals may be documented in an alternate sectionGoals may be documented in an alternate sectionGoals may be documented in an alternate sectionGoals may be documented in an alternate section (unrecognized sect ion and content) No Status Records FoundNo Status Records Found INFORMATION SOURCE (unrecogn ized section and content) DATE CREATED AUTHOR 02/09/2023 [facility] DATE CREATED AUTHOR AUTHOR'S SOREN WALKER 07/28/2025 [facility] FOR RECORDS PERTAINING TO PATIENTS WHO ARE [...] BE BASED ON THE PRIMARY CLINICAL RECORDS. [employer] provides no warranty or guarantee of the accuracy or completeness of information in this document.
[2025-07-31 23:07] LABS: Calprotectin, Stool 135 ug/g (0-120)
== END | disposition home or self-care (01) ==
LOC: LABSPEC 06:31
PROVIDERS: PCP Family Medicine; Referring Provider Student in an Organized Health Care Education/Training Program; Visit Provider Student in an Organized Health Care Education/Training Program
DX: K51.30 Ulcerative (chronic) rectosigmoiditis without complications (principal)
CPT/HCPCS: 83993